=== PATIENT | female | born 1945 | race Caucasian/White ===

== ENCOUNTER 2019-01-04 00:42 | Day surgery (SDC) | payer MEDICARE | END 2019-01-04 23:08 | disposition home or self-care (01) | LOC: WOUND 00:42 | DX: L97.812 Non-pressure chronic ulcer of other part of right lower leg with fat layer exposed (principal); M06.9 Rheumatoid arthritis, unspecified | CPT/HCPCS: G0463 ==

== ENCOUNTER 2019-01-11 15:03 | Day surgery (SDC) | payer MEDICARE, OTHER | END 2019-01-11 23:52 | disposition home or self-care (01) | LOC: WOUND 15:03 | DX: L97.812 Non-pressure chronic ulcer of other part of right lower leg with fat layer exposed (principal); M19.90 Unspecified osteoarthritis, unspecified site ==

== ENCOUNTER 2019-01-18 12:30 | Day surgery (SDC) | payer MEDICARE | END 2019-01-18 13:30 | disposition home or self-care (01) | LOC: WOUND 12:30 | DX: S80.921A Unspecified superficial injury of right lower leg, initial encounter (principal); L97.822 Non-pressure chronic ulcer of other part of left lower leg with fat layer exposed; X08.8XXA Exposure to other specified smoke, fire and flames, initial encounter | CPT/HCPCS: G0463 ==

== ENCOUNTER 2019-01-24 13:05 | Day surgery (SDC) | payer MEDICARE, OTHER | END 2019-01-24 23:53 | disposition home or self-care (01) | LOC: WOUND 13:05 | DX: S81.801A Unspecified open wound, right lower leg, initial encounter (principal); L97.822 Non-pressure chronic ulcer of other part of left lower leg with fat layer exposed; M19.90 Unspecified osteoarthritis, unspecified site ==

== ENCOUNTER 2019-01-31 12:45 | Day surgery (SDC) | payer MEDICARE | END 2019-01-31 22:49 | disposition home or self-care (01) | LOC: WOUND 12:45 | DX: S80.921A Unspecified superficial injury of right lower leg, initial encounter (principal); L97.812 Non-pressure chronic ulcer of other part of right lower leg with fat layer exposed; L97.822 Non-pressure chronic ulcer of other part of left lower leg with fat layer exposed | CPT/HCPCS: 87070; 87075; 87077; 87147; 87186; 87205 ==

== ENCOUNTER 2019-02-07 00:18 | Day surgery (SDC) | payer MEDICARE, OTHER | END 2019-02-07 23:02 | disposition home or self-care (01) | LOC: WOUND 00:18 | DX: L97.822 Non-pressure chronic ulcer of other part of left lower leg with fat layer exposed (principal); R22.41 Localized swelling, mass and lump, right lower limb; S80.921D Unspecified superficial injury of right lower leg, subsequent encounter | CPT/HCPCS: G0463 ==

== ENCOUNTER 2019-02-14 00:30 | Day surgery (SDC) | payer MEDICARE, OTHER | END 2019-02-14 22:51 | disposition home or self-care (01) | LOC: WOUND 00:30 | DX: L97.812 Non-pressure chronic ulcer of other part of right lower leg with fat layer exposed (principal); L97.822 Non-pressure chronic ulcer of other part of left lower leg with fat layer exposed; S80.921D Unspecified superficial injury of right lower leg, subsequent encounter; R22.41 Localized swelling, mass and lump, right lower limb ==

== ENCOUNTER 2019-02-21 00:47 | Day surgery (SDC) | payer MEDICARE, OTHER | END 2019-02-21 23:22 | disposition home or self-care (01) | LOC: WOUND 00:47 | DX: L97.812 Non-pressure chronic ulcer of other part of right lower leg with fat layer exposed (principal); L97.822 Non-pressure chronic ulcer of other part of left lower leg with fat layer exposed; S80.921D Unspecified superficial injury of right lower leg, subsequent encounter ==

== ENCOUNTER 2021-08-29 12:49 | Inpatient (IN) | payer MEDICARE ==
[~2021-08-29] VITALS: Ht 175.3 cm; Wt 68.5 kg
[2021-08-29 13:17] LABS: BASOPHILS ABSOLUTE AUTO 0.14 K/mm3 (0.00-0.23); BASOPHILS PERCENT AUTO 1 % (0-2); EOSINOPHILS ABSOLUTE AUTO 0.01 K/mm3 (0.00-0.68); EOSINOPHILS PERCENT AUTO 0 % (0-6); Hemoglobin 20.3 g/dL (11.5-16.0); IMMATURE GRAN ABSOLUTE AUTO 0.24 K/mm3 (0.00-0.10); IMMATURE GRAN PERCENT AUTO 1 % (0-1); LYMPHOCYTES PERCENT AUTO 10 % (21-46); MONOCYTES ABSOLUTE AUTO 1.29 K/mm3 (0.16-1.47); MONOCYTES PERCENT AUTO 7 % (4-13); Mean Corpuscular HGB 31.3 pg (26.0-34.0); Mean Corpuscular HGB Conc 33.3 g/dL (31.5-36.5); Mean Corpuscular Volume 94 fL (80-100); Mean Platelet Volume 11.4 fL (9.1-12.4); NEUTROPHILS ABSOLUTE AUTO 14.27 K/mm3 (1.96-9.15); NEUTROPHILS PERCENT AUTO 81 % (41-73); Platelet Count 310 K/mm3 (150-400); RDW Coefficient Variation 13.7 % (11.7-14.2); RDW Standard Deviation 47.3 fL (35.1-46.3); Red Blood Cell Count 6.49 M/mm3 (3.80-5.20); White Blood Cell Count 17.65 K/mm3 (4.00-11.30)
[2021-08-29 13:20] LABS: Hematocrit 60.9 % (33.0-51.0)
[2021-08-29 13:43] LABS: Albumin, Blood 2.6 g/dL (3.4-5.0); Albumin/Globulin Ratio 0.4 (0.8-1.8); Bun/Creatinine Ratio 47.2 (12.0-20.0); Calcium, Blood 10.5 mg/dL (8.5-10.1); Creatine Kinase MB 17.6 ng/mL (0.0-3.6); Creatine Kinase MB Index 3.1 (0.0-4.0); Creatinine, Blood 3.07 mg/dL (0.40-1.00); Potassium, Blood 5.3 mmol/L (3.5-5.5); Total Protein, Blood 8.6 g/dL (6.4-8.2); Troponin I 0.086 ng/mL (0.000-0.040)
[2021-08-29 14:13] LABS: Source, Urine Catheter
[2021-08-29 14:16] LABS: Appearance, Urine Cloudy (Clear); Blood, Urine 1+ (Neg); Color, Urine Amber (P-Yellow); Glucose Qualitative, Urine Neg (Neg); Ketones, Urine Neg (Neg); Leukocyte Esterase, Urine 3+ (Neg); Nitrite, Urine Neg (Neg); Protein, Urine 2+ (Neg); Urobilinogen, Urine 2+ (Normal)
[2021-08-29 14:25] LABS: Bilirubin, Urine 1+ (Neg)
[2021-08-29 14:29] LABS: Bacteria Many /hpf; Red Blood Cells, Urine 0-2 /hpf (0-2); Squamous Epithelial Cells Few /hpf (Few)
[2021-08-29 14:30] LABS: Amorphous Mod (0-Heavy); U Amphetamine Screen Not Detected; U Barbituate Screen Not Detected; U Benzodiazapine Screen Not Detected; U Buprenorphine Screen Not Detected; U Cannabinoids Screen Not Detected; U Cocaine Screen Not Detected; U Methadone Screen Not Detected; U Methamphetamine Screen Not Detected; U Opiates Screen Not Detected; U Oxycodone Screen Not Detected; U Phencyclidine Screen Not Detected; U Propoxyphene Screen Not Detected
[2021-08-29 15:38] LABS: Influenza A, PCR NEGATIVE (NEGATIVE); Influenza B, PCR NEGATIVE (NEGATIVE); Resp Syncytial Virus, PCR NEGATIVE (NEGATIVE)
--- NOTE | 2021-08-29 18:56 | NUR ---
PT TX PT TRANSFERRED TO UNIT. VS TAKEN. PICTURES OF WOUND TAKEN AND WILL BE IN CHART. PHYSICIAN NOTIFIED OF INCREASE IN LACTIC ACID. PT MOANING IN PAIN AND NOT DIRECTABLE. BED ALARM IN PLACE. WILL CONT TO MONITOR UNTIL REPORT GIVEN TO LENCHO POLANCO.
--- NOTE | 2021-08-29 18:59 | NUR ---
PALLIATIVE CARE CONSULTED CALLED IN CONSULT TO COLLIN NICE
[2021-08-29 19:33] LABS: Bun/Creatinine Ratio 48.6 (12.0-20.0); Calcium, Blood 9.2 mg/dL (8.5-10.1); Creatinine, Blood 2.92 mg/dL (0.40-1.00); Potassium, Blood 4.5 mmol/L (3.5-5.5)
--- NOTE | 2021-08-29 19:41 | NUR ---
FAMILY CALL SPOKE TO THE PT'S SON (AMA) AND [id number] (JILL) AT LENGTH TO ANSWER QUESTIONS ABOUT PT CONDITION. REVEIEWED CONSENT AND COMPLETED FORMS OVER THE PHONE WITH 2ND RN. PLANS ARE FOR THEM TO TRAVEL FROM [place] WITH A DEPARTURE TIME ON 08/29/21 AM. PERMISSION GRANTED FOR UP TO (3) VISITORS AROUND THE CLOCK DUE TO PT'S CONFUSION AND INABILITY TO MAKE DECISIONS OR COMMUNICATE AT THIS TIME.
--- NOTE | 2021-08-29 19:42 | NUR ---
TANK STAVE ASSEMBLER CALL PROVIDED INFORMATION AND ANSWERED QUESTIONS FOR PT'S TANK STAVE ASSEMBLER (DUSTIN @ [phone]) AFTER RECEIVING CONSENT FROM NEXT OF KIN (SON AMA @ [phone]). PROVIDED WITH VISITING HOUR POLICY AND PLAN TO INCLUDE ALLOWANCE OF UP TO (3) VISITORS AROUND THE CLOCK PER PT'S ALTERED MENTATION AND POSSIBLE DECISION MAKING FOR TREATMENT AND PLAN OF CARE.
[2021-08-29 19:47] LABS: SARS-Cov-2 (COVID-19) PCR, MMC POSITIVE (NEGATIVE)
[2021-08-30 03:43] LABS: Hematocrit 50.7 % (33.0-51.0); Mean Corpuscular HGB Conc 33.5 g/dL (31.5-36.5); Mean Corpuscular Volume 93 fL (80-100); Mean Platelet Volume 11.7 fL (9.1-12.4); NRBC ABSOLUTE 0.02 K/mm3 (0.00-0.02); NRBC Auto 0.1 /100 WBC (0.0-0.2); Platelet Count 221 K/mm3 (150-400); RDW Coefficient Variation 13.5 % (11.7-14.2); RDW Standard Deviation 46.2 fL (35.1-46.3); Red Blood Cell Count 5.48 M/mm3 (3.80-5.20); White Blood Cell Count 17.91 K/mm3 (4.00-11.30)
[2021-08-30 04:21] LABS: Bun/Creatinine Ratio 48.4 (12.0-20.0); Creatinine, Blood 3.06 mg/dL (0.40-1.00); Potassium, Blood 3.4 mmol/L (3.5-5.5); Thyroid Stimulating Hormone 2.96 uIU/mL (0.360-4.800)
[2021-08-30 04:31] LABS: Troponin I 2.03 ng/mL (0.000-0.040)
[2021-08-30 06:25] LABS: Anti-Xa UFH, PHA Monitoring <0.10 IU/mL; International Normalized Ratio 1.04; Prothrombin Time Results 10.9 Sec (9.7-11.5)
--- NOTE | 2021-08-30 07:27 | NUR ---
EMPLOYMENT TRAINING SPECIALIST SUMMARY PT IS AXO X 0. PT HAS NO VERBAL RESPONSE AND DOES NOT FOLLOW ANY COMMANDS. THIS RN DOES NOT BELIEVE THE PT CAN SEE, PT DOES NOT TRACK AND DOES NOT APPEAR TO HAVE PURPOSEFUL EYE CONTACT. PUPILS ARE EQUAL BUT VERY SLUGGISH TO LIGHT. BUNDLING MACHINE OPERATOR ARE EQUAL AND STRONG. FACE IS SYMMETRICAL WITH NO OBVIOUS DEFICIT. BP WNL AND STABLE THIS SHIFT. O2 SATS >92% ON RM AIR. PT AFEBRILE THIS SHIFT ALTHOUGH TEMP IS SLOWLY RISING UP TO 99.1 THIS AM. PT DID NOT APPEAR IN ANY DISTRESS ALTHOUGH SHE MOANS IN PAIN WHEN REPOSITIONED. PT TOSSES HER HEAD BACK AND FORTH WHILE IN BED AT TIMES. PT'S TROPONINS CONTINUED TO TREND UP SO PROVIDER CONTACTED AND ORDER FOR HEPARIN OBTAINED. THIS RN EXPRESSED CONCERN TO PACKING ROOM WORKER AAKASH BEYER AT THE START OF THE SHIFT ABOUT THE PT'S SODIUM LEVELS AND THAT SHE WAS RECIEVING NS INSTEAD OF 1/2 NS AND THE PACKING ROOM WORKER SAID THAT THE PT WAS VOLUME DEPLETED AND THAT THE NS WAS APPROPRIATE AND THE NA LEVEL WOULD EVENTUALLY DROP HOWEVER, THIS AM THE PT'S NA LEVEL WAS UP TO 160 SO PROVIDER WAS CONTACTED AND NS WAS DC'D AND D5W WAS STARTED. TELE SHOWING ST IN THE 100'S FOR MOST OF THE SHIFT. REPORT GIVEN TO DAYSHIFT RN WHO HAS ASSUMED CARE.
--- NOTE | 2021-08-30 08:56 | NUR ---
PATIENT RESPONDING TO VERBAL AND TOUCH, MOANING AND GROANING. NO VERBAL RESPONSE. PATIENT EYES REMAINED CLOSED THIS AM. NOT FOLLOWING COMMANDS. PUPILS EQUAL AND SLUGGISH TO RESPOND. ARMS FLEXING AND EXTENDING IN RIGID MOTIONS. NOT ABLE TO REAL ESTATE MANAGER MY FINGERS OR FOLLOW BASIC COMMANDS. ON ROOM AIR SATING HIGH 90'S. LUNGS SOUNDING CLEAR AND DIM IN BASES. NO COUGH AT THIS TIME. ORAL CARE Q4. TELE SHOWING SINUS RHYTHM/SINUS TACH WITH HR 90-110'S. BP STABLE. TEMP ELEVATED AT 99.3 THIS AM. BLANKETS REMOVED. PATIENT WARM TO TOUCH AND SKIN NOTED TO BE SLIGHTLY RED THROUGHOUT. UPON PALPATION PATIENT MOANS AND GROANS THROUGHOUT WHOLE BODY. WINTER CATH IN PLACE DRAINING CLEAR/NINOSKA COLORED URINE. Q2 TURNING AND NEEDED. PRESSURE ULCER TO COCCYX, CLEANED AND NEW MEPILEX APPLIED. HEELS BEING FLOATED OFF BED WITH PINK FOAM. NEPHROLOGY AND CARDIOLOGY CONSULTED THIS AM. PLAN TO HAVE ECHO. HEPARIN GTT INFUSING WELL D5 WITH 1 AMP BICARD AND POTASSIUM. WILL CONTINUE TO MONITOR.
--- NOTE | 2021-08-30 11:02 | NUR ---
UPDATE: SON AMA CALLED AND UPDATE PROVIDED. SON ON WAY FROM [facility], PLANS TO ARRIVE TODAY. PALLIATIVE CARE CALLED AND UPDATED ON CASE. ECHO BEING DONE AT THIS TIME. WILL CONTINUE TO MONITOR.
--- NOTE | 2021-08-30 11:19 | NUR ---
Echocardiogram completed.
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
--- NOTE | 2021-08-30 16:24 | NUR ---
CALL PLACED TO DR. LAND TO UPDATE ON SODIUM LAB RESULTS. NO NEW ORDERS AT THIS TIME.
--- NOTE | 2021-08-30 18:53 | NUR ---
SHIFT SUMMARY: NEURO REMAINS UNCHANGED. PATIENT GRIPPING SIDE RAILS DURING TURNS AND MOANING/GROANING WITH PALPATION AND TURNS. PUPILS REMAIN EQUAL AND SLUGISH. VITAL SIGNS STABLE. REMAINS ON ROOM AIR AND NO CHANGES IN TELE. HR REMAIN 90'S. RINGS REMOVED AND IN CUP IN ROOM. UPDATE PROVIDED TO SON TODAY, WHO IS ON HIS WAY FROM [facility]. BLOOD SUGARS Q6 WITH INSULIN COVERAGE. THIAMINE INFUSED. Q2 TURNS. WILL CONTINUE MONITOR AND REPORT OFF TO ONCOMING RN.
--- NOTE | 2021-08-30 20:58 | NUR ---
CARE ASSUMPTION PT IS NOT ALERT BUT RESPONDS TO TOUCH W MOANS AND GROANS. O2 SATS >90% ON RM AIR W CLEAR/DIM LS. BP WNL AND STABLE. HR IS SR IN THE 90'S. HEPARIN AND D5W RUNNING. PT LAYING IN BED APPEARING COMFORTABLE WHEN SHE IS NOT BEING TOUCHED.
[2021-08-31 03:39] LABS: BASOPHILS ABSOLUTE AUTO 0.08 K/mm3 (0.00-0.23); BASOPHILS PERCENT AUTO 1 % (0-2); EOSINOPHILS ABSOLUTE AUTO 0.07 K/mm3 (0.00-0.68); EOSINOPHILS PERCENT AUTO 0 % (0-6); Hematocrit 44.6 % (33.0-51.0); Hemoglobin 14.9 g/dL (11.5-16.0); IMMATURE GRAN ABSOLUTE AUTO 0.59 K/mm3 (0.00-0.10); IMMATURE GRAN PERCENT AUTO 3 % (0-1); LYMPHOCYTES ABSOLUTE AUTO 1.81 K/mm3 (0.84-5.20); LYMPHOCYTES PERCENT AUTO 11 % (21-46); MONOCYTES ABSOLUTE AUTO 0.98 K/mm3 (0.16-1.47); MONOCYTES PERCENT AUTO 6 % (4-13); Mean Corpuscular HGB 31.2 pg (26.0-34.0); Mean Corpuscular HGB Conc 33.4 g/dL (31.5-36.5); Mean Corpuscular Volume 93 fL (80-100); Mean Platelet Volume 11.4 fL (9.1-12.4); NEUTROPHILS ABSOLUTE AUTO 13.78 K/mm3 (1.96-9.15); NEUTROPHILS PERCENT AUTO 80 % (41-73); NRBC ABSOLUTE 0.02 K/mm3 (0.00-0.02); NRBC Auto 0.1 /100 WBC (0.0-0.2); Platelet Count 174 K/mm3 (150-400); RDW Coefficient Variation 13.9 % (11.7-14.2); RDW Standard Deviation 48.1 fL (35.1-46.3); Red Blood Cell Count 4.78 M/mm3 (3.80-5.20); White Blood Cell Count 17.31 K/mm3 (4.00-11.30)
[2021-08-31 03:53] LABS: Albumin, Blood 1.6 g/dL (3.4-5.0); Anion Gap 13 mmol/L (6-16); Blood Urea Nitrogen 119 mg/dL (8-24); Bun/Creatinine Ratio 54.3 (12.0-20.0); CO2, Blood 18 mmol/L (21-32); Calcium, Blood 8.8 mg/dL (8.5-10.1); Chloride, Blood 123 mmol/L (98-108); Creatinine, Blood 2.19 mg/dL (0.40-1.00); Glomerular Filtration Rate 22 (60-); Glucose, Blood 179 mg/dL (70-99); Magnesium, Blood 3.2 mg/dL (1.6-2.4); Phosphorus, Blood 2.2 mg/dL (2.5-4.9); Sodium, Blood 154 mmol/L (136-145)
--- NOTE | 2021-08-31 05:45 | NUR ---
STACKER TENDER SUMMARY PT'S NEURO HAS NOT CHANGED THIS SHIFT FROM PREVIOUS NIGHT. PT CONTINUES TO NOT TRACK ANYTHING WITH HER EYES AND DOES NOT FOLLOW ANY COMMANDS. PT SHOWS NO S/S OF DISTRESS UNLESS BEING MOVED IN BED. O2 SATS >92% ON RM AIR. BP WNL AND STABLE THIS SHIFT. TELE SHOWING SR 80-90'S THIS SHIFT. PT TURNED Q2H AND ORAL CARE PROVIDED THROUGHOUT THE SHIFT. AM LABS SHOW SEVERAL ABNORMAL LAB RESULTS SO THIS RN CONTACTED DR. LAND WHO SAID HE IS PUTTING IN ORDERS AT THIS TIME SO I WILL AWAIT NEW ORDERS. WILL REPORT TO ONCOMING RN.
--- NOTE | 2021-08-31 08:55 | NUR ---
Pt is lying in bed, eyes half-open, mouth wide open. Occasionally coughing. She responds, "huh?" when I call her name. Opened her eyes to command, resisted oral care, closing and opening her mouth, and grabbing the suction tubing. Also turns her head side to side and grimaces when face is gently wiped with damp washcloth to remove secrections crusted beneath lower eyelashes. Moans when arms/legs are touched or moved. Otherwise did not respond, to command or spontaneously. Oral care done to remove casts on the soft palate and tongue. Coughing up secretions, yellowish white to the back of the mouth, which were suctioned during oral care. She continues to have occasional coughing before and after the oral care was initianted. Dr. Eaton was here rounding while I was in the room with the pt.,
--- NOTE | 2021-08-31 16:55 | NUR ---
MRI will be done around 1730 this evening. At this time pt is awake, alert, and smiling at staff. Tracking with her eyes, opening eyes spontaneously, able to answer some questions, and able to very gently sqeeze my hands with hers. Left side slightly stronger than the right. SPontaneous movement of both upper extremities noted, left side more than the right. Able to wiggle fingers of both hands, very slowly.
--- NOTE | 2021-08-31 17:05 | NUR ---
Able to contact pt's brother to fill out the MRI screening form. MRI will be done around 5:30 pm today.
[2021-08-31 22:00] LABS: Source, Urine Catheter
[2021-08-31 23:22] LABS: Appearance, Urine Clear (Clear); Bilirubin, Urine Neg (Neg); Blood, Urine 4+ (Neg); Color, Urine Yellow (P-Yellow); Glucose Qualitative, Urine 1+ (Neg); Ketones, Urine Neg (Neg); Leukocyte Esterase, Urine 2+ (Neg); Nitrite, Urine Neg (Neg); Protein, Urine 2+ (Neg); Urobilinogen, Urine NORM (Normal)
[2021-08-31 23:53] LABS: Bacteria Mod /hpf; Squamous Epithelial Cells Few /hpf (Few)
[2021-09-01 04:40] LABS: BASOPHILS ABSOLUTE AUTO 0.05 K/mm3 (0.00-0.23); BASOPHILS PERCENT AUTO 0 % (0-2); EOSINOPHILS ABSOLUTE AUTO 0.08 K/mm3 (0.00-0.68); EOSINOPHILS PERCENT AUTO 1 % (0-6); Hematocrit 40.8 % (33.0-51.0); Hemoglobin 13.5 g/dL (11.5-16.0); IMMATURE GRAN PERCENT AUTO 4 % (0-1); LYMPHOCYTES ABSOLUTE AUTO 1.55 K/mm3 (0.84-5.20); LYMPHOCYTES PERCENT AUTO 13 % (21-46); MONOCYTES ABSOLUTE AUTO 0.56 K/mm3 (0.16-1.47); MONOCYTES PERCENT AUTO 5 % (4-13); Mean Corpuscular HGB Conc 33.1 g/dL (31.5-36.5); Mean Corpuscular Volume 94 fL (80-100); NEUTROPHILS ABSOLUTE AUTO 9.04 K/mm3 (1.96-9.15); NEUTROPHILS PERCENT AUTO 77 % (41-73); NRBC ABSOLUTE 0.02 K/mm3 (0.00-0.02); NRBC Auto 0.2 /100 WBC (0.0-0.2); Platelet Count 157 K/mm3 (150-400); RDW Coefficient Variation 13.7 % (11.7-14.2); RDW Standard Deviation 47.7 fL (35.1-46.3); Red Blood Cell Count 4.35 M/mm3 (3.80-5.20); White Blood Cell Count 11.78 K/mm3 (4.00-11.30)
--- NOTE | 2021-09-01 04:56 | NUR ---
SHIFT SUMMARY PT ALERT WHEN STIMULATED W/ VERBAL STIMULI. RESPONDS WITH SIMPLE, ONE WORD ANSWERS, "YES." "OK" "HI". PT SLOW TO RESPOND. ATTEMPTS TO FOLLOW COMMANDS, OPENED MOUTH WHEN ASKED. oPENED EYES WHEN ASKED. SP02>92% ON RA. TELEMETRY READS NSR, HR 70'S, VSS. PT MOANS AND PULLS ARMS AWAY WHEN BEING MOVED OR REPOSITIONED, SUPER SENSTIVE TO TOUCH. NO MOANING WHEN LEFT ALONE. WINTER CATHETER INSERTED THIS SHIFT, DRAINING CLEAR YELLOW URINE. NO BM THIS SHIFT. ORAL CARE PERFORMED. D5 INFUSING PER EMAR. HEPARIN INFUSING PER EMAR. PT'S EXECUTIVE WELLNESS PROGRAMS DIRECTOR CALLED FOR UPDATE. STATES HE WILL CALL BACK IN MORNING TO PRAY WITH PATIENT. CALL LIGHT IN REACH.
[2021-09-01 05:10] LABS: Albumin, Blood 1.4 g/dL (3.4-5.0); Anion Gap 11 mmol/L (6-16); Blood Urea Nitrogen 78 mg/dL (8-24); Bun/Creatinine Ratio 52.7 (12.0-20.0); CO2, Blood 18 mmol/L (21-32); Calcium, Blood 8.3 mg/dL (8.5-10.1); Chloride, Blood 118 mmol/L (98-108); Creatinine, Blood 1.48 mg/dL (0.40-1.00); Glomerular Filtration Rate 34 (60-); Glucose, Blood 131 mg/dL (70-99); Magnesium, Blood 2.7 mg/dL (1.6-2.4); Phosphorus, Blood 2.5 mg/dL (2.5-4.9); Potassium, Blood 3.1 mmol/L (3.5-5.5); Sodium, Blood 147 mmol/L (136-145)
--- NOTE | 2021-09-01 10:50 | NUR ---
Morning note: Pt is alert, answering some questions with short, simple answers, and slow to respond, but answers are appropriate, if sometimes slurred and difficult for her to form. She smiles often. At rest she says that she is not in pain; however, even with the smallest passive movements and repostioning, or with assessment of her BLE edema she cries out/moans with pain. Minimal movement of her arms, hands and feet. Able to turn her head side to side; when asked to shrug her shoulders she did, and then wiggled them up and down and smiled. I asked her if she is like her son, and then I asked or is he like you? And she smiled and said, "vice versa, and versa vice!" IV left forearm was beginning to show redness and swelling; it was dc'd. Powerglide placed on the right upper arm to infuse D5W and K+ rider concurrently for pt's comfort. The heparin gtt continues to infuse on the left forearm.
--- NOTE | 2021-09-01 11:44 | NUR ---
Speaking full sentences now. STates her son "said he would be back today or tomorrow" and asking, "What happened to my wedding ring?" Still slow in speaking, but making more improvements.
--- NOTE | 2021-09-01 14:41 | NUR ---
Spoke with lAisa, Speech therapist. PT is visiting with her son Yury and daughter in law in the room.
--- NOTE | 2021-09-01 17:44 | NUR ---
Pt appeared tired after family left this afternoon. She was repositioned, and then she appeared to take a nap for about 1.5 hours. At dinner time she was awake, and said that she wanted to eat. Conversation much slower after dinner; she appears pretty tired. Oral care given and repositioned. Son Yury and his were here this afternoon, updated on pt improvements, and they were in the room while the swallow eval was being done, so were apraised of her progress. Also informed them that the safety intern is considering angiogram for Monday. Also spoke with palliative Care RN Tara about pt condition and ongoing plan of care.
[2021-09-02 06:45] LABS: Magnesium, Blood 2.5 mg/dL (1.6-2.4)
[2021-09-02 06:47] LABS: Albumin, Blood 1.2 g/dL (3.4-5.0); Anion Gap 7 mmol/L (6-16); Blood Urea Nitrogen 45 mg/dL (8-24); Bun/Creatinine Ratio 42.9 (12.0-20.0); CO2, Blood 18 mmol/L (21-32); Calcium, Blood 7.7 mg/dL (8.5-10.1); Chloride, Blood 114 mmol/L (98-108); Creatinine, Blood 1.05 mg/dL (0.40-1.00); Glomerular Filtration Rate 51 (60-); Glucose, Blood 118 mg/dL (70-99); Phosphorus, Blood 2.1 mg/dL (2.5-4.9); Sodium, Blood 139 mmol/L (136-145)
[2021-09-02 06:48] LABS: Potassium, Blood 5.5 mmol/L (3.5-5.5)
--- NOTE | 2021-09-02 07:39 | NUR ---
SHIFT SUMMARY PT ALERT. SLOW TO RESPOND AND USES SHORT SENTENCES OR PHRASES. HR SR AND O2 SATS MAINTAINING OVER 95% ON RA. Q2 TURNS AND Q4 ORAL CARE. D5W INFUSING AT 75 ML/HR. HEPARIN GTT INFUSING. PG DRAWS. WINTER IN PLACE DRAINING URINE TO GRAVITY. IN BED RESTING WITH CALL ALARM AT SIDE
[2021-09-02 08:07] LABS: BASOPHILS ABSOLUTE AUTO 0.05 K/mm3 (0.00-0.23); BASOPHILS PERCENT AUTO 0 % (0-2); EOSINOPHILS ABSOLUTE AUTO 0.07 K/mm3 (0.00-0.68); EOSINOPHILS PERCENT AUTO 1 % (0-6); Hematocrit 38.2 % (33.0-51.0); Hemoglobin 12.9 g/dL (11.5-16.0); IMMATURE GRAN ABSOLUTE AUTO 0.68 K/mm3 (0.00-0.10); IMMATURE GRAN PERCENT AUTO 6 % (0-1); LYMPHOCYTES PERCENT AUTO 16 % (21-46); MONOCYTES ABSOLUTE AUTO 0.66 K/mm3 (0.16-1.47); MONOCYTES PERCENT AUTO 6 % (4-13); Mean Corpuscular HGB 31.4 pg (26.0-34.0); Mean Corpuscular HGB Conc 33.8 g/dL (31.5-36.5); Mean Corpuscular Volume 93 fL (80-100); NEUTROPHILS ABSOLUTE AUTO 8.48 K/mm3 (1.96-9.15); NEUTROPHILS PERCENT AUTO 72 % (41-73); RDW Coefficient Variation 13.7 % (11.7-14.2); RDW Standard Deviation 46.4 fL (35.1-46.3); Red Blood Cell Count 4.11 M/mm3 (3.80-5.20); White Blood Cell Count 11.84 K/mm3 (4.00-11.30)
[2021-09-02 08:21] LABS: Mean Platelet Volume 12.7 fL (9.1-12.4)
[2021-09-02 10:34] LABS: Platelet Count 126 K/mm3 (150-400)
--- NOTE | 2021-09-02 18:49 | NUR ---
SHIFT SUMMARY PT A/O X1-2, UNABLE TO STATE WHERE SHE IS AFTER MULTIPLE REMINDERS. PT ANSWERS QUESTIONS AND IS VERY PLEASANT. VSS T/O SHIFT WITH 02 SATS >99% ON RA. PT HAS WINTER IN PLACE DRAINGING TO GRAVITY, YELLOW URINE. PT SAYS "OW" MULTIPLE TIMES WHEN REPOSITIONING, SOMETIMES SAY "OW" IN ANTICIPATION OF THE REPOSTIONING. NO C/O CHEST PAIN/PRESSURE T/O SHIFT. NO C/O SOB T/O SHIFT.
[2021-09-03 04:10] LABS: BASOPHILS ABSOLUTE AUTO 0.07 K/mm3 (0.00-0.23); BASOPHILS PERCENT AUTO 1 % (0-2); EOSINOPHILS ABSOLUTE AUTO 0.05 K/mm3 (0.00-0.68); EOSINOPHILS PERCENT AUTO 1 % (0-6); Hematocrit 36.6 % (33.0-51.0); Hemoglobin 12.4 g/dL (11.5-16.0); IMMATURE GRAN ABSOLUTE AUTO 0.45 K/mm3 (0.00-0.10); IMMATURE GRAN PERCENT AUTO 4 % (0-1); LYMPHOCYTES ABSOLUTE AUTO 1.71 K/mm3 (0.84-5.20); LYMPHOCYTES PERCENT AUTO 15 % (21-46); MONOCYTES ABSOLUTE AUTO 0.64 K/mm3 (0.16-1.47); MONOCYTES PERCENT AUTO 6 % (4-13); Mean Corpuscular HGB 31.2 pg (26.0-34.0); Mean Corpuscular HGB Conc 33.9 g/dL (31.5-36.5); Mean Corpuscular Volume 92 fL (80-100); Mean Platelet Volume 11.8 fL (9.1-12.4); NEUTROPHILS ABSOLUTE AUTO 8.19 K/mm3 (1.96-9.15); NEUTROPHILS PERCENT AUTO 74 % (41-73); Platelet Count 133 K/mm3 (150-400); RDW Coefficient Variation 13.4 % (11.7-14.2); RDW Standard Deviation 45.9 fL (35.1-46.3); Red Blood Cell Count 3.97 M/mm3 (3.80-5.20); White Blood Cell Count 11.11 K/mm3 (4.00-11.30)
[2021-09-03 04:37] LABS: Albumin, Blood 1.3 g/dL (3.4-5.0); Anion Gap 4 mmol/L (6-16); Blood Urea Nitrogen 31 mg/dL (8-24); Bun/Creatinine Ratio 33.5 (12.0-20.0); CO2, Blood 21 mmol/L (21-32); Calcium, Blood 8.2 mg/dL (8.5-10.1); Chloride, Blood 120 mmol/L (98-108); Creatinine, Blood 0.92 mg/dL (0.40-1.00); Glomerular Filtration Rate 59 (60-); Glucose, Blood 123 mg/dL (70-99); Phosphorus, Blood 3.1 mg/dL (2.5-4.9); Potassium, Blood 4.2 mmol/L (3.5-5.5); Sodium, Blood 145 mmol/L (136-145)
--- NOTE | 2021-09-03 07:47 | NUR ---
SHIFT SUMMARY PT ALERT BUT UNABLE TO REMEMBER DATE OR LOCATION. PAIN WITH Q2 REPOSITIONING. CLINIMIX INFUSING AND HEPARIN GTT INFUSING. WINTER IN PLACE DRAINING DARK YELLOW URINE TO GRAVITY. HR SR 80'S AND BP STABLE. O2 SATS MAINTAINING OVER 93% ON RA. ORAL CARE Q4. IN BED AWAKE WITH CALL ALARM AT SIDE
--- NOTE | 2021-09-03 18:37 | NUR ---
SHIFT SUMMARY PT A/O 1-2, CONFUSED. PT PLEASANT WHEN STAFF IN ROOM. WHEN ASKED QUESTIONS, PT TRIES TO ANSWER QUESTIONS BY READING WHAT IS ON THE WHITE BOARD OR WHAT IS ON TV. VSS T/O SHIFT WITH O2 SATS >93% ON RA. PT HAS WINTER DRAINING TO GRVITY, YELLOW URINE. NO C/O CHEST PAIN/PRESSURE T/O. PT REPORTED PAIN OF LEGS DURING REPOSITIONS. PT HAD ELEVATED TEMP, DR NOTIFIED. COOL WASH CLOTH APPLIED TO FOREHEAD OF PT, TEMP BEGAN TO DECREASE. CONTINUING TO AWAIT CODE STATUS CHANGES AND CONSENT FOR ANGIO PROCEDURE FROM FAMILY, PALLIATIVE ON THE CASE.
[2021-09-04 04:43] LABS: BASOPHILS ABSOLUTE AUTO 0.06 K/mm3 (0.00-0.23); BASOPHILS PERCENT AUTO 1 % (0-2); EOSINOPHILS ABSOLUTE AUTO 0.07 K/mm3 (0.00-0.68); EOSINOPHILS PERCENT AUTO 1 % (0-6); Hematocrit 38.4 % (33.0-51.0); Hemoglobin 12.9 g/dL (11.5-16.0); IMMATURE GRAN ABSOLUTE AUTO 0.33 K/mm3 (0.00-0.10); IMMATURE GRAN PERCENT AUTO 3 % (0-1); LYMPHOCYTES ABSOLUTE AUTO 1.46 K/mm3 (0.84-5.20); LYMPHOCYTES PERCENT AUTO 11 % (21-46); MONOCYTES ABSOLUTE AUTO 0.81 K/mm3 (0.16-1.47); MONOCYTES PERCENT AUTO 6 % (4-13); Mean Corpuscular HGB 31.5 pg (26.0-34.0); Mean Corpuscular HGB Conc 33.6 g/dL (31.5-36.5); Mean Corpuscular Volume 94 fL (80-100); Mean Platelet Volume 11.3 fL (9.1-12.4); NEUTROPHILS ABSOLUTE AUTO 10.14 K/mm3 (1.96-9.15); NEUTROPHILS PERCENT AUTO 79 % (41-73); Platelet Count 157 K/mm3 (150-400); RDW Coefficient Variation 13.6 % (11.7-14.2); RDW Standard Deviation 46.4 fL (35.1-46.3); Red Blood Cell Count 4.09 M/mm3 (3.80-5.20); White Blood Cell Count 12.87 K/mm3 (4.00-11.30)
[2021-09-04 04:52] LABS: Albumin, Blood 1.4 g/dL (3.4-5.0); Anion Gap 4 mmol/L (6-16); Blood Urea Nitrogen 28 mg/dL (8-24); Bun/Creatinine Ratio 33.7 (12.0-20.0); CO2, Blood 24 mmol/L (21-32); Calcium, Blood 8.7 mg/dL (8.5-10.1); Chloride, Blood 119 mmol/L (98-108); Creatinine, Blood 0.83 mg/dL (0.40-1.00); Glomerular Filtration Rate >60 (60-); Glucose, Blood 126 mg/dL (70-99); Magnesium, Blood 2.2 mg/dL (1.6-2.4); Phosphorus, Blood 3.1 mg/dL (2.5-4.9); Potassium, Blood 4.7 mmol/L (3.5-5.5); Sodium, Blood 147 mmol/L (136-145)
--- NOTE | 2021-09-04 06:01 | NUR ---
SHIFT SUMMARY ASSUMED CARE OF PT AT 1900. PT IS ALERT BUT NOT ORIENTED. DOES NOT ANSWER QUESTIONS APPROPIATLY. HEART SOUNDS REGULAR, LUNG SOUNDS DIMINISHED. PT HAS A WINTER, DRAINING CLEAR YELLOW URINE. PT SACRAL WOUND WAS CLEANED AND DRESSING CHANGED. PT LEGS ARE VERY PAINFUL TO TOUCH BUT FINE WHEN RESTING. CALL LIGHT IN REACH, BED IN LOWEST POSITION.
--- NOTE | 2021-09-04 10:38 | NUR ---
PATIENT ALERT TO SELF. VERY CONFUSED. UNABLE TO ANSWER ANY ORIENTING QUESTIONS AT THIS TIME BESIDES FIRST NAME. ABLE TO MOVE UPPER EXTREMITIES, LOWER EXTREMITIES VERY WEAK WITH LITTLE MOVEMENT. WEAK BILATERAL GENERATION TECHNOLOGIST. PERRLA, EYES TRACKING. ABLE TO FOLLOW COMMANDS. DENIES NUMBNESS/TINGLING. COMPLAINS OF PAIN "SOMETIMES" IN LEGS. RESPIRATORY WNL, LUNGS SOUNDING CLEAR AND DIM IN BASES. ON ROOM AIR. TELE SHOWING SINUS WITH INVERTED T WAVES AND HR 80-90'S. BLOOD PRESSURE STABLE. DENIES ABDOMINAL PAIN. WINTER CATH IN PLACE DRAINING CLEAR/YELLOW URINE. NOT EATING MUCH. PUREE DIET. CLINIMIX INFUSING. SACRUM AND BILATERAL HEEL WOUNDS WITH MEPILEX IN PLACE. PLAN TO REDRESS AND CLEAN TODAY. PHYSICAL THERAPY IN THIS AM. Q6 BLOOD SUGARS. Q4 ORAL CARE AND Q2 TURNING. BED ALARM AND CAMERA ON. CALL LIGHT IN REACH WILL CONTINUE TO MONITOR.
--- NOTE | 2021-09-04 12:52 | NUR ---
TRANSFER: PATIENT TRANSFERRED TO 313 AT THIS TIME. NO ACUTE CHANGES. PATIENT ON TELE. TELE MONITOR AWARE OF TRANSFER. ORAL CARE AND Q2 TURNING COMPLETED. REMAINS ALERT TO SELF. TRANSFERRED VIA BED WITH ALL PERSONAL BELONGINGS. REPORTED OFF TO RN.
--- NOTE | 2021-09-04 12:54 | NUR ---
PATIENT TRANSFERED FROM PCU 8 TO ROOM 313. HEPARIN GTT AND CLINIMIX INFUSING. BED ALARM SET FOR SAFETY. PATIENT CONFUSED. CALL LIGHT WITHIN REACH AND PATIENT INSTRUCTED ON USE OF CALL LIGHT FOR ASSISTANCE. DENIES ANY PAIN OR ANY NEEDS AT THIS TIME. DROPLET ISOLATION PRECAUTIONS IN PLACE FOR COVID 19.
--- NOTE | 2021-09-04 17:39 | NUR ---
PT RECEIVED THIS AFT. HAS BEEN QUITE PLEASANT THIS YAN. DOES TAKE SOME NUTRITION WITH FEEDING HELP. DOES TAKE A LONG TIME TO RESPOND. ONLY ANSWERS QUESTIONS WITH VAGUE ANSWERS. OFTEN CONFUSED ANSWERS. IS PRESENTLY GETTING US OF LEGS. BED IN LOW POSITION, CALL LITE IN REACH, CALLS APPROP
[2021-09-05 04:53] LABS: BASOPHILS ABSOLUTE AUTO 0.04 K/mm3 (0.00-0.23); BASOPHILS PERCENT AUTO 0 % (0-2); EOSINOPHILS ABSOLUTE AUTO 0.06 K/mm3 (0.00-0.68); EOSINOPHILS PERCENT AUTO 1 % (0-6); Hematocrit 37.9 % (33.0-51.0); Hemoglobin 12.7 g/dL (11.5-16.0); IMMATURE GRAN ABSOLUTE AUTO 0.22 K/mm3 (0.00-0.10); IMMATURE GRAN PERCENT AUTO 2 % (0-1); LYMPHOCYTES ABSOLUTE AUTO 1.75 K/mm3 (0.84-5.20); LYMPHOCYTES PERCENT AUTO 13 % (21-46); MONOCYTES ABSOLUTE AUTO 0.96 K/mm3 (0.16-1.47); MONOCYTES PERCENT AUTO 7 % (4-13); Mean Corpuscular HGB Conc 33.5 g/dL (31.5-36.5); Mean Corpuscular Volume 92 fL (80-100); Mean Platelet Volume 11.1 fL (9.1-12.4); NEUTROPHILS ABSOLUTE AUTO 10.26 K/mm3 (1.96-9.15); NEUTROPHILS PERCENT AUTO 77 % (41-73); Platelet Count 128 K/mm3 (150-400); RDW Coefficient Variation 13.6 % (11.7-14.2); RDW Standard Deviation 45.7 fL (35.1-46.3); White Blood Cell Count 13.29 K/mm3 (4.00-11.30)
[2021-09-05 05:30] LABS: Albumin, Blood 1.5 g/dL (3.4-5.0); Anion Gap 8 mmol/L (6-16); Blood Urea Nitrogen 23 mg/dL (8-24); Bun/Creatinine Ratio 36.3 (12.0-20.0); CO2, Blood 22 mmol/L (21-32); Calcium, Blood 8.3 mg/dL (8.5-10.1); Chloride, Blood 116 mmol/L (98-108); Creatinine, Blood 0.63 mg/dL (0.40-1.00); Glomerular Filtration Rate >60 (60-); Glucose, Blood 112 mg/dL (70-99); Phosphorus, Blood 3.3 mg/dL (2.5-4.9); Potassium, Blood 3.4 mmol/L (3.5-5.5); Sodium, Blood 146 mmol/L (136-145)
--- NOTE | 2021-09-05 06:42 | NUR ---
INGRID REMAINED STABLE THROUGHOUT THE NUT THREADER.SHE HAD PERIODS OF CONFUSION DURING ASSESSMENTS AND VITALS. HER GLUCOSE LEVEL REMAINED STABLE. A NEW BAG OF CLINIMYX WAS HUNG. HER VITALS REMAINED STABLE. HER HEPARIN DRIPS IS STILL RUNNING AT SHIFT CHANGE
--- NOTE | 2021-09-05 18:24 | NUR ---
Alert and oriented x1 , nonsensical talk sometimes and confused. Continue on heparin drip , no adverse effects noted. continue on clinimix at 50 ml/hr for nutrition supplement. Vital signs are stable. Fentayl 25 mcg was given for pain management , it was effective. Blood within normal limit. sacral and bilateral heel dressing CDI. Call light in place. Continue to monitor to monitor.
[2021-09-06 05:20] LABS: BASOPHILS ABSOLUTE AUTO 0.04 K/mm3 (0.00-0.23); BASOPHILS PERCENT AUTO 0 % (0-2); EOSINOPHILS ABSOLUTE AUTO 0.06 K/mm3 (0.00-0.68); EOSINOPHILS PERCENT AUTO 1 % (0-6); Hematocrit 35.7 % (33.0-51.0); Hemoglobin 11.9 g/dL (11.5-16.0); IMMATURE GRAN ABSOLUTE AUTO 0.12 K/mm3 (0.00-0.10); IMMATURE GRAN PERCENT AUTO 1 % (0-1); LYMPHOCYTES PERCENT AUTO 16 % (21-46); MONOCYTES ABSOLUTE AUTO 0.97 K/mm3 (0.16-1.47); MONOCYTES PERCENT AUTO 9 % (4-13); Mean Corpuscular HGB 31.5 pg (26.0-34.0); Mean Corpuscular HGB Conc 33.3 g/dL (31.5-36.5); Mean Corpuscular Volume 94 fL (80-100); Mean Platelet Volume 11.2 fL (9.1-12.4); NEUTROPHILS ABSOLUTE AUTO 7.76 K/mm3 (1.96-9.15); NEUTROPHILS PERCENT AUTO 73 % (41-73); Platelet Count 132 K/mm3 (150-400); RDW Coefficient Variation 13.6 % (11.7-14.2); RDW Standard Deviation 46.6 fL (35.1-46.3); Red Blood Cell Count 3.78 M/mm3 (3.80-5.20); White Blood Cell Count 10.65 K/mm3 (4.00-11.30)
[2021-09-06 06:11] LABS: Albumin, Blood 1.3 g/dL (3.4-5.0); Anion Gap 9 mmol/L (6-16); Blood Urea Nitrogen 28 mg/dL (8-24); Bun/Creatinine Ratio 46.4 (12.0-20.0); CO2, Blood 21 mmol/L (21-32); Calcium, Blood 8.1 mg/dL (8.5-10.1); Chloride, Blood 113 mmol/L (98-108); Glomerular Filtration Rate >60 (60-); Glucose, Blood 110 mg/dL (70-99); Magnesium, Blood 1.8 mg/dL (1.6-2.4); Phosphorus, Blood 3.6 mg/dL (2.5-4.9); Potassium, Blood 3.9 mmol/L (3.5-5.5); Sodium, Blood 143 mmol/L (136-145)
--- NOTE | 2021-09-06 06:19 | NUR ---
SHIFT SUMMARY PT ALERT, ONLY ORIENTED TO SELF. PLEASANTLY CONFUSED. HAVING CONVERSATIONS BUT NOT REPLYING APPROPRIATELY IN THEM. TURNING HERSELF IN THE BED. DRESSING TO COCCYX REMAINS C/D/I. PT WITH SCATTERED BRUISING THROUGHOUT. CLINIMIX INFUSION AND HEPARIN DRIP CONTINUOUSLY RUNNING THROUGHOUT THE NIGHT. RATE ADJUST ON HEPARIN THIS AM. INCREASED TO 15 U/KG/HR OR 19.5 ML/HR WITH A 1500 UNIT BOLUS. PT DENIES ANY PAIN OR SOB. SLEPT OFF AND ON THROUGHOUT THE NIGHT. VITAL SIGNS REMAINED STABLE. TELEMETRY READING SINUS TACH 103. PT HAD AN UNEVENTFUL NIGHT.
--- NOTE | 2021-09-06 19:52 | NUR ---
Alert and oriented x1 -2 with some confusion. Continue on heparin drip at 19.5 ml/hr , no advsere effects noted. One person assist with adls AND Two persons assist with bed mobility and repositioning. Clinimix dc. vital signs are stable. Bed in low position and call light within reach . Continue to monitor.
--- NOTE | 2021-09-07 04:56 | NUR ---
FLOUR MIXER HELPER SUMMARY PATIENT HAD A FAIR SHIFT. SHE LODGED NILL COMPLAINTS. SHE IS STILL PLEASANTLY CONFUSED. STILL THINKS SHE IS [place]. STILL ON HEPARIN DRIP, PHARMACY IS DOSING. WILL CONTINUE TO MONIOTR HER.
[2021-09-07 05:11] LABS: BASOPHILS ABSOLUTE AUTO 0.03 K/mm3 (0.00-0.23); BASOPHILS PERCENT AUTO 0 % (0-2); EOSINOPHILS ABSOLUTE AUTO 0.09 K/mm3 (0.00-0.68); EOSINOPHILS PERCENT AUTO 1 % (0-6); Hematocrit 30.1 % (33.0-51.0); Hemoglobin 10.2 g/dL (11.5-16.0); IMMATURE GRAN ABSOLUTE AUTO 0.08 K/mm3 (0.00-0.10); IMMATURE GRAN PERCENT AUTO 1 % (0-1); LYMPHOCYTES ABSOLUTE AUTO 2.23 K/mm3 (0.84-5.20); LYMPHOCYTES PERCENT AUTO 22 % (21-46); MONOCYTES ABSOLUTE AUTO 0.95 K/mm3 (0.16-1.47); MONOCYTES PERCENT AUTO 9 % (4-13); Mean Corpuscular HGB 31.3 pg (26.0-34.0); Mean Corpuscular HGB Conc 33.9 g/dL (31.5-36.5); Mean Corpuscular Volume 92 fL (80-100); Mean Platelet Volume 11.3 fL (9.1-12.4); NEUTROPHILS ABSOLUTE AUTO 6.99 K/mm3 (1.96-9.15); NEUTROPHILS PERCENT AUTO 67 % (41-73); Platelet Count 161 K/mm3 (150-400); RDW Coefficient Variation 13.3 % (11.7-14.2); RDW Standard Deviation 45.1 fL (35.1-46.3); Red Blood Cell Count 3.26 M/mm3 (3.80-5.20); White Blood Cell Count 10.37 K/mm3 (4.00-11.30)
[2021-09-07 06:23] LABS: Alanine Aminotransfer (ALT/SGP 36 U/L (12-78); Albumin, Blood 1.4 g/dL (3.4-5.0); Albumin/Globulin Ratio 0.4 (0.8-1.8); Alk Phos 96 U/L (50-136); Anion Gap 9 mmol/L (6-16); Aspartate Aminotrans (AST/SGOT 34 U/L (12-37); Bilirubin, Total 0.4 mg/dL (0.1-1.0); Blood Urea Nitrogen 22 mg/dL (8-24); Bun/Creatinine Ratio 35.4 (12.0-20.0); CO2, Blood 21 mmol/L (21-32); Chloride, Blood 108 mmol/L (98-108); Creatinine, Blood 0.62 mg/dL (0.40-1.00); Globulin, Blood 3.4 g/dL (2.2-4.0); Glomerular Filtration Rate >60 (60-); Glucose, Blood 93 mg/dL (70-99); Magnesium, Blood 1.6 mg/dL (1.6-2.4); Potassium, Blood 3.8 mmol/L (3.5-5.5); Sodium, Blood 138 mmol/L (136-145); Total Protein, Blood 4.8 g/dL (6.4-8.2)
[2021-09-07 16:19] LABS: Hematocrit 34.4 % (33.0-51.0); Hemoglobin 11.6 g/dL (11.5-16.0)
--- NOTE | 2021-09-07 18:39 | NUR ---
Alert and oriented to self, nonsensical speaking. Continue on heparin at 27.3 ml/hr . hart cath draining straberry like color and Dr ALVAREZ notified . will continue to monitor.Mepilex dressing change on coccyx was done. Apeptite improving. Continue on tele monitor with sinus rthym at 92. No insulin coverage needed. vital signs are stable. Continue to monitor.
[2021-09-08 02:45] LABS: BASOPHILS ABSOLUTE AUTO 0.04 K/mm3 (0.00-0.23); BASOPHILS PERCENT AUTO 0 % (0-2); EOSINOPHILS ABSOLUTE AUTO 0.09 K/mm3 (0.00-0.68); EOSINOPHILS PERCENT AUTO 1 % (0-6); Hematocrit 32.1 % (33.0-51.0); Hemoglobin 10.9 g/dL (11.5-16.0); IMMATURE GRAN ABSOLUTE AUTO 0.08 K/mm3 (0.00-0.10); IMMATURE GRAN PERCENT AUTO 1 % (0-1); LYMPHOCYTES PERCENT AUTO 22 % (21-46); MONOCYTES ABSOLUTE AUTO 0.93 K/mm3 (0.16-1.47); MONOCYTES PERCENT AUTO 10 % (4-13); Mean Corpuscular HGB 31.1 pg (26.0-34.0); Mean Corpuscular Volume 92 fL (80-100); Mean Platelet Volume 10.5 fL (9.1-12.4); NEUTROPHILS ABSOLUTE AUTO 6.34 K/mm3 (1.96-9.15); NEUTROPHILS PERCENT AUTO 66 % (41-73); Platelet Count 183 K/mm3 (150-400); RDW Coefficient Variation 13.5 % (11.7-14.2); Red Blood Cell Count 3.51 M/mm3 (3.80-5.20); White Blood Cell Count 9.58 K/mm3 (4.00-11.30)
[2021-09-08 03:42] LABS: Albumin, Blood 1.4 g/dL (3.4-5.0); Anion Gap 8 mmol/L (6-16); Blood Urea Nitrogen 18 mg/dL (8-24); Bun/Creatinine Ratio 30.6 (12.0-20.0); CO2, Blood 23 mmol/L (21-32); Chloride, Blood 110 mmol/L (98-108); Creatinine, Blood 0.59 mg/dL (0.40-1.00); Glomerular Filtration Rate >60 (60-); Glucose, Blood 105 mg/dL (70-99); Magnesium, Blood 1.8 mg/dL (1.6-2.4); Phosphorus, Blood 3.8 mg/dL (2.5-4.9); Potassium, Blood 3.8 mmol/L (3.5-5.5); Sodium, Blood 141 mmol/L (136-145)
--- NOTE | 2021-09-08 04:30 | NUR ---
BULLION WEIGHER SUMMARY PT HAD A FAIR SHIFT OVERNIGHT, SHE LODGED NIL COMPALINT STILL ON HEPARIN DRIP. MGT OF HEPARIN BY PHARM. STILL HAVING BLOODY URINE AND THE HOSPITALIST WAS INFORMED, HE ORDERED FOR HG AND FOR PT BE MONITORED. VITALS ARE STABLE.
--- NOTE | 2021-09-08 19:19 | NUR ---
Alert and oriented with some confusion. Heparin is DC, ELIQUIS was given. worked with PT /OT for strength and endurance. vital signs are stable. hart is patent , draining bloody urine . will continue to monitor.
--- NOTE | 2021-09-09 04:36 | NUR ---
SUMMARY NO NEW ISSUES NOTED. PT REMAINS PLESANTLY CONFUSED. PT WINTER DRAINING TO GRAVITY. PT TAKING IN GOOD PO FLUIDS. PT DRINKING WATER AND ENSURES. PT HAS SLEPT T/OUT SHIFT. PT CURRENTLY SLEEPING IN NO DISTRESS. CALL LIGHT IN REACH AND BED ALARM ON.
[2021-09-09 05:15] LABS: Hematocrit 30.1 % (33.0-51.0); Hemoglobin 10.1 g/dL (11.5-16.0)
[2021-09-09 06:05] LABS: Albumin, Blood 1.4 g/dL (3.4-5.0); Anion Gap 9 mmol/L (6-16); Blood Urea Nitrogen 20 mg/dL (8-24); Bun/Creatinine Ratio 31.6 (12.0-20.0); CO2, Blood 22 mmol/L (21-32); Calcium, Blood 8.2 mg/dL (8.5-10.1); Chloride, Blood 109 mmol/L (98-108); Creatinine, Blood 0.63 mg/dL (0.40-1.00); Glomerular Filtration Rate >60 (60-); Glucose, Blood 91 mg/dL (70-99); Magnesium, Blood 1.8 mg/dL (1.6-2.4); Phosphorus, Blood 3.3 mg/dL (2.5-4.9); Potassium, Blood 3.9 mmol/L (3.5-5.5); Sodium, Blood 140 mmol/L (136-145)
--- NOTE | 2021-09-09 17:53 | NUR ---
PATIENT IS ALERT AND DISORIENTED. UNABLE TO HOLD MEANINGFUL CONVERSATION. ON RA. SHE WAS TRANSFERRED FROM ROOM 313 TO ROOM 364 WHICH IS A LIFT ROOM. WINTER IS IN PLACE AND DRAINING TO [facility]. PSYCHIATRY CONSULT PLACED FOR GAURDIANSHIP LETTER. WILL CONTINUE TO MONITOR
--- NOTE | 2021-09-09 18:59 | NUR ---
Alert and oriented xself with some forgetfulness and confusion. One person assist with ADLS. Denies any pain. Rincon cath is patent , draining clear yellow.Vital signs are stable. Patient is transferred to room 364 because of the need for lift. Continue to monitor.
--- NOTE | 2021-09-10 04:34 | NUR ---
PT AWAKE FOR MOST OF THE NIGHT, ORIENTED TO SELF AND PLACE AND REMAINS ON BEDREST. NO C/O COUGH OR SOB. WILL CONTINUE TO MONITOR FOR CHANGES.
[2021-09-10 05:14] LABS: Hemoglobin 10.1 g/dL (11.5-16.0)
[2021-09-10 06:35] LABS: Albumin, Blood 1.5 g/dL (3.4-5.0); Anion Gap 9 mmol/L (6-16); Blood Urea Nitrogen 16 mg/dL (8-24); Bun/Creatinine Ratio 28.5 (12.0-20.0); CO2, Blood 21 mmol/L (21-32); Calcium, Blood 8.2 mg/dL (8.5-10.1); Chloride, Blood 110 mmol/L (98-108); Creatinine, Blood 0.56 mg/dL (0.40-1.00); Glomerular Filtration Rate >60 (60-); Glucose, Blood 98 mg/dL (70-99); Magnesium, Blood 1.8 mg/dL (1.6-2.4); Phosphorus, Blood 3.7 mg/dL (2.5-4.9); Potassium, Blood 3.9 mmol/L (3.5-5.5); Sodium, Blood 140 mmol/L (136-145)
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
[2021-09-11 04:57] LABS: Hematocrit 31.5 % (33.0-51.0); Hemoglobin 10.5 g/dL (11.5-16.0)
[2021-09-11 05:35] LABS: Albumin, Blood 1.5 g/dL (3.4-5.0); Anion Gap 7 mmol/L (6-16); Blood Urea Nitrogen 21 mg/dL (8-24); Bun/Creatinine Ratio 35.3 (12.0-20.0); CO2, Blood 24 mmol/L (21-32); Calcium, Blood 8.2 mg/dL (8.5-10.1); Chloride, Blood 111 mmol/L (98-108); Glomerular Filtration Rate >60 (60-); Glucose, Blood 105 mg/dL (70-99); Magnesium, Blood 1.8 mg/dL (1.6-2.4); Potassium, Blood 4.1 mmol/L (3.5-5.5); Sodium, Blood 142 mmol/L (136-145)
--- NOTE | 2021-09-11 06:04 | NUR ---
SHIFT SUMMARY PT PLEASANTLY CONFUSED AND COOPERATIVE WITH CARE. PT. MEDICATED PER EMAR AND HAD AN UNEVENTFUL NIGHT. PT RESTED WELL THIS SHIFT AND CURRENTLY IN BED AT THE MOMENT. THIS NURSE WILL CONTINUE TO MONITOR UNTIL REPORT IS GIVEN.
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
--- NOTE | 2021-09-11 18:00 | NUR ---
CELINE MACEDO NUMBER IS [phone]
[2021-09-12 09:39] LABS: Albumin, Blood 1.7 g/dL (3.4-5.0); Anion Gap 9 mmol/L (6-16); Blood Urea Nitrogen 16 mg/dL (8-24); Bun/Creatinine Ratio 27.8 (12.0-20.0); CO2, Blood 21 mmol/L (21-32); Calcium, Blood 8.5 mg/dL (8.5-10.1); Chloride, Blood 111 mmol/L (98-108); Creatinine, Blood 0.58 mg/dL (0.40-1.00); Glomerular Filtration Rate >60 (60-); Glucose, Blood 153 mg/dL (70-99); Magnesium, Blood 1.9 mg/dL (1.6-2.4); Phosphorus, Blood 3.8 mg/dL (2.5-4.9); Potassium, Blood 4.5 mmol/L (3.5-5.5); Sodium, Blood 141 mmol/L (136-145)
--- NOTE | 2021-09-12 17:55 | NUR ---
SHIFT SUMMARY PT IS ALERT AND PLEASANTLY CONFUSED. SHE HAS BEEN COOPERATIVE WITH CARE TODAY. PT HAS BEEN IN BED TODAY AND INC. ATTENDS AND WINTER CATH IN PLACE. PLANS FOR GAURDIANSHIP AND PLACEMENT PENDING FOR D/C PLANNING. NO OTHER CHANGGES TO REPORT THIS SHIFT.
[2021-09-13 05:10] LABS: Hematocrit 34.3 % (33.0-51.0); Hemoglobin 11.3 g/dL (11.5-16.0)
[2021-09-13 06:08] LABS: Albumin, Blood 1.7 g/dL (3.4-5.0); Anion Gap 8 mmol/L (6-16); Blood Urea Nitrogen 19 mg/dL (8-24); Bun/Creatinine Ratio 34.3 (12.0-20.0); CO2, Blood 23 mmol/L (21-32); Calcium, Blood 8.5 mg/dL (8.5-10.1); Chloride, Blood 113 mmol/L (98-108); Creatinine, Blood 0.55 mg/dL (0.40-1.00); Glomerular Filtration Rate >60 (60-); Glucose, Blood 100 mg/dL (70-99); Phosphorus, Blood 4.5 mg/dL (2.5-4.9); Potassium, Blood 4.2 mmol/L (3.5-5.5); Sodium, Blood 144 mmol/L (136-145)
--- NOTE | 2021-09-13 06:27 | NUR ---
SHIFT SUMMARY PT AOX1 AND PLEASANTLY CONFUSED BUT KNOWS HOW TO USE THE CALL LIGHT FOR NEEDS. PT. WAS READING AT THE START OF THIS SHIFT AND MEDICATED PER EMAR. PT. RESTED WELL AND CURRENTLY IN BED DENYING ANY NEEDS AT THE MOMENT. THIS NURSE WILL CONTINUE TO MONITOR UNTIL REPORT IS GIVEN.
--- NOTE | 2021-09-13 15:24 | NUR ---
DAY SHIFT SUMMARY PLEASANTLY CONFUSED PT. DEMENTIA, ORIENTED TO SELF. WINTER IN PLACE,PATENT, AND DRAINING BY GRAVITY. BLACK CRUSTED AREA TO SACRAL AREA, CLEANED AND COVERED WITH MEPILEX. PT DENIES PAIN AT THIS TIME. COOPERATIVE WITH CARE. PATIENT WORKED TODAY WITH PHYSICAL THERAPY IN ROOM, PER DEANA, PT PATIENT WAS ABLE TO GET TO THE SIDE OF BED AND SLIGHTLY LIFT BUTTOCK OFF BED. PATIENT AWAITING PLACEMENT. CALL LIGHT WITHIN REACH OF PT, ABLE TO USE CALL LIGHT.
[2021-09-14 04:53] LABS: Hematocrit 32.7 % (33.0-51.0); Hemoglobin 10.8 g/dL (11.5-16.0)
[2021-09-14 05:50] LABS: Albumin, Blood 1.8 g/dL (3.4-5.0); Anion Gap 7 mmol/L (6-16); Blood Urea Nitrogen 18 mg/dL (8-24); Bun/Creatinine Ratio 29.5 (12.0-20.0); CO2, Blood 24 mmol/L (21-32); Calcium, Blood 8.8 mg/dL (8.5-10.1); Chloride, Blood 112 mmol/L (98-108); Creatinine, Blood 0.61 mg/dL (0.40-1.00); Glomerular Filtration Rate >60 (60-); Glucose, Blood 93 mg/dL (70-99); Phosphorus, Blood 4.4 mg/dL (2.5-4.9); Potassium, Blood 4.2 mmol/L (3.5-5.5); Sodium, Blood 143 mmol/L (136-145)
--- NOTE | 2021-09-14 06:16 | NUR ---
SHIFT SUMMARY PT AOX1 AND RESTING IN BED AT THE START OF THIS SHIFT. PT STILL REMAINS PLEASANTLY CONFUSED AND COOPERATIVE WITH CARE. PT HAS C/O TREJO THE LAST TWO NIGHTS AND MEDICATED PER EMAR (WHICH HAS BEEN EFFECTIVE). PT. CURRENTLY ASLEEP WITH RISE AND FALL OF CHEST. THIS NURSE WILL CONTINUE TO MONITOR UNITL REPORT IS GIVEN.
--- NOTE | 2021-09-14 16:19 | NUR ---
DAY SHIFT SUMMARY PLEASANTLY CONFUSED. BLACK CRUSTED PRESSURE WOUND TO SACRAL AREA, CLEANED AND COVERED WITH MEPILEX. WORKED WITH OT TODAY TO GET TO BEDSIDE CHAIR. WITH LIFT ABLE TO TRANSFER TO BEDSIDE CHAIR. ALERT AND ORIENTED TO SELF. WINTER INTACT/PATENT/DRAINING BY GRAVITY. CALL LIGHT WITHIN REACH.
--- NOTE | 2021-09-15 06:05 | NUR ---
SHIFT SUMMARY PT AOX1 AND PLEASANTLY CONFUSED WHILE COOPERATIVE CARE THIS SHIFT. PT ABLE TO EXPRESS SOME NEEDS AND KNOWS HOW TO USE THE CALL LIGHT AT TIMES. PT. C/O A TREJO BUT WAS MEIDCATED PER EMAR AND EFFECTIVE. PT. DENIES ANY NEEDS AT THE MOMENT, WILL CONTINUE TO MONITOR UNTIL REPORT IS GIVEN.
[2021-09-15 06:11] LABS: Hematocrit 33.4 % (33.0-51.0)
[2021-09-15 07:17] LABS: Albumin, Blood 1.8 g/dL (3.4-5.0); Anion Gap 8 mmol/L (6-16); Blood Urea Nitrogen 15 mg/dL (8-24); Bun/Creatinine Ratio 23.5 (12.0-20.0); CO2, Blood 23 mmol/L (21-32); Calcium, Blood 8.6 mg/dL (8.5-10.1); Chloride, Blood 110 mmol/L (98-108); Creatinine, Blood 0.64 mg/dL (0.40-1.00); Glomerular Filtration Rate >60 (60-); Glucose, Blood 91 mg/dL (70-99); Phosphorus, Blood 4.9 mg/dL (2.5-4.9); Potassium, Blood 4.1 mmol/L (3.5-5.5); Sodium, Blood 141 mmol/L (136-145)
--- NOTE | 2021-09-15 18:40 | NUR ---
Shift Summary A/O to self. Pleasantly confused. Patient has unstagable decubitis to coccyx and ulcers to bilat heels. Photos updated and wound care documtation done. Wound cleansed and dressing changed. L heel has a blood blister and a skin tear. Will provide foam heel protectors to prevent further tear. Powerglide dressing changed. Worked with PT/OT. Sergey meyers and draining. No additional concerns.
--- NOTE | 2021-09-16 06:11 | NUR ---
SHIFT SUMMARY ASSUMED CARE AT 1900. PT REMAINS ON ISOLATION FOR +COVID. PT IS AAOX1-2, PLEASANTLY CONFUSED. ABLE TO FOLLOW SOME DIRECTIONS. RUE POWERGLIDE REMAINS IN PLACE, SITE BENIGN. FOLWY CATHETER PATENT, DRAINING CLEAR YELLOW URINE VIA GRAVITY. PT DENIES PAIN AND DISCOMFORT WHEN ASKED. BILATERAL HEEL PROTECTING FOAMS IN PLACE. PT TURNED/REPOSITIONED FREQUENTLY. SCHEDULED MEDICATIONS ADMINISTERED WITH NO ISSUES. DYSPHAGIA PPRECAUTIONS MAINTAINED AND NO COUGHING NOTED. BED ALARM REMAINS ACTIVATED. BED IS IN LOW POSITION WITH THE CALL LIGHT WITHIN EASY REACH. WILL CONTINUE TO MONITOR.
--- NOTE | 2021-09-16 17:47 | NUR ---
SHIFT SUMMARY: NO ACUTE EVENTS. ORIENTED X 1-2, LABILE, SOMETIMES FORGETS WHERE SHE IS. C/O BACK PAIN, GAVE TYLENOL WITH GOOD RELIEF. INCONTINENT OF STOOL, WINTER DRAINING YELLOW URINE. WOUND ON COCCYX WITH ESCHAR, SLOUGH, FOUL ODOR, MODERATE DRAINAGE. WOUNDS ON BILATERAL HEELS NOT OBSERVED PATIENT WAS HAVING PAIN DURING ASSESSMENT. WOUND CONSULT PLACED. INFECTION WREATH AND GARLAND MAKER STATED THAT PT CAN COME OFF ISOLATION ON 09/19/21.
[2021-09-17 04:50] LABS: Hematocrit 31.2 % (33.0-51.0); Hemoglobin 10.5 g/dL (11.5-16.0)
[2021-09-17 05:43] LABS: Albumin, Blood 1.7 g/dL (3.4-5.0); Anion Gap 11 mmol/L (6-16); Blood Urea Nitrogen 11 mg/dL (8-24); Bun/Creatinine Ratio 19.4 (12.0-20.0); CO2, Blood 22 mmol/L (21-32); Calcium, Blood 8.4 mg/dL (8.5-10.1); Chloride, Blood 109 mmol/L (98-108); Creatinine, Blood 0.57 mg/dL (0.40-1.00); Glomerular Filtration Rate >60 (60-); Glucose, Blood 146 mg/dL (70-99); Magnesium, Blood 1.9 mg/dL (1.6-2.4); Phosphorus, Blood 3.3 mg/dL (2.5-4.9); Potassium, Blood 3.6 mmol/L (3.5-5.5); Sodium, Blood 142 mmol/L (136-145)
--- NOTE | 2021-09-17 05:48 | NUR ---
SHIFT SUMMARY ASSUMED CARE AT 1900. REMAINS ON ISOLATION FOR COVID+. PT REMAINS AAOX1-TO SELF. PLEASANT AND ABLE TO FOLLOW SIMPLE DIRECTIONS. NO ACUTE EVENTS OCCURRED OVERNIGHT. PT WITH GENERALIZED WEAKNESS AND REQUIRES MAXIMUM ASSISTANCE. PT W/ RUE POWERGLIDE, NO BLOOD RETURN BUT FLUSHES WITH EASE, SITE BENIGN. COCCYX DRESSING INTACT. BILATERAL HEEL FOAMS IN PLACE. WINTER CATHETER IN PLACE, PATENT, DRAINING URINE VIA GRAVITY. HER SCHEDULED MEDICATIONS WERE ADMINISTERED. MORNING LABS WERE DRAWN BY SOFTWARE DEVELOPMENT ANALYSTBASILIO. BED ALARM REMAINS ACTIVATED. BED IS IN LOW POSITION WITH THE CALL LIGHT WITHIN EASY REACH-BUT PT DOESNOT SHOW SIGNS OF UNDERSTANDING HOW TO USE THE CALL LIGHT. WILL CONTINUE TO MONITOR.
--- NOTE | 2021-09-17 18:49 | NUR ---
SHIFT SUMMARY PT RESTING QUIETLY AT START OF SHIFT, WOKE EASILY FOR CARE. WEAK AND DECONDITIONED. HX OF ALZ DEMENTIA. PT WAITING FOR DETENTION PLACEMENT. DECUBITIS ULCER TO COCCYX WITH VERY FOUL SMELLING DRAINAGE. PT INCONTINENT OF STOOL THIS AM. PT CLEANED AND CHANGED. PT LATER REQUESTED BEDPAN THIS AFTERNOON FOR BM. DRSG TO COCCYX CHANGED. WOUND CLEANED WITH SKIN INTEGRITY, AND NEW ALGINATE PLACED WITH NEW MEPILEX. PT REPOSITIONED WITH BUTTOCKS FLOATED OFF WOUND. ABLE TO FEED SELF, DRINKING WELL. CALL LT IN REACH.
[2021-09-18 04:37] LABS: Hematocrit 30.6 % (33.0-51.0); Hemoglobin 10.3 g/dL (11.5-16.0)
[2021-09-18 04:55] LABS: Albumin, Blood 1.7 g/dL (3.4-5.0); Anion Gap 9 mmol/L (6-16); Blood Urea Nitrogen 9 mg/dL (8-24); Bun/Creatinine Ratio 16.8 (12.0-20.0); CO2, Blood 21 mmol/L (21-32); Calcium, Blood 8.5 mg/dL (8.5-10.1); Chloride, Blood 110 mmol/L (98-108); Creatinine, Blood 0.54 mg/dL (0.40-1.00); Glomerular Filtration Rate >60 (60-); Glucose, Blood 101 mg/dL (70-99); Magnesium, Blood 1.9 mg/dL (1.6-2.4); Phosphorus, Blood 3.9 mg/dL (2.5-4.9); Potassium, Blood 3.6 mmol/L (3.5-5.5); Sodium, Blood 140 mmol/L (136-145)
--- NOTE | 2021-09-18 06:17 | NUR ---
SHIFT SUMMARY ASSUMED CARE AT 1900. PT REMAINS IN ISOLATION. PT REMAINS CONFUSED. SCHEDULED MEDICATIONS ADMINISTERED. NO COMPLAINTS OF PAIN. RUE POWERGLIDE SITE BENIGN. WINTER CATHETER PATENT, DRAINING URINE VIA GRAVITY. DRESSING TO COCCYX REMAINS INTACT. BILATERAL FOAM HEEL PROTECTORS IN PLACE. VITALS STABLE. BED ALARM REMAINS ACTIVATED AND BED IN LOW POSITION WITH THE CALL LIGHT WITHIN EASY REACH. NO ACUTE EVENTS OVERNIGHT. WILL CONTINUE TO MONITOR.
--- NOTE | 2021-09-18 14:49 | NUR ---
ALERT TO SELF, SOMETIMES WHERE SHE IS AT. COOPERATIVE. CHRONIC PAIN BACK. DRESSING TO D.U BUTTOCK CHANGED, CLEANED AND THEN CALCIUM AGINATE PLACED IN WOUND THEN MEPILEX. PINK FOAM BOOTIES PLACED. RED, SCALEY SKIN CIRCUMORAL BILATERAL SHINS. WOUND CLINIC CONSULT ORDERED, BUT HAS NOT SEEN PATIENT YET. UNLABORED RESPIRATIONS. WCTM
--- NOTE | 2021-09-19 05:57 | NUR ---
SHIFT SUMMARY ASSUMED CARE AT 1900. PT REMAINS CONFUSED. RUE POWERGLIDE DRESSING INTACT, SITE BENIGN. WINTER CATHETER PATENT,DRAINING URINE VIA GRAVITY. COCCYX DRESSING IS INTACT. BILATERAL FOAM HEEL PROTECTORS IN PLACE. NO ACUTE EVENTS OVERNIGHT. BED ALARM REMAINS ACTIVATED. BED IS IN LOW POSITION WITH THE CALL LIGHT WITHIN EASY REACH. WILL CONTINUE TO MONITOR.
--- NOTE | 2021-09-19 17:18 | NUR ---
HEEL MEPILEX APPLIED BILATERAL HEELS, THEN PINK FOAM PROTECTORS. BLISTER LIKE ON HEELS WITH LEFT >RT SIDE. SCAB LEFT LATERAL HEEL.
--- NOTE | 2021-09-19 18:41 | NUR ---
ALERT. TO SELF. POOR APPETITE. UNLABORED RESPIRATIONS. WOUND CARE CLINIC SHOULD BE SEEING PATIENT TOMORROW. TURNED Q [address] TO GRAVITY DRAINING YELLOW COLORED URINE. POWERGLIDE PATENT. AWAITING GUARDIANSHIP THEN PLACEMENT. [facility]
--- NOTE | 2021-09-20 00:30 | NUR ---
PT WAS INCONTINENT OF STOOL W/ATTENDS CHANGED PRN. MEPILEX DX HAD BECOME SOILED SO WAS REMOVED. SATURATED CALCIUM ALGINATE FELL OUT OF VERY DEEP WOUND BED DURING PROCESS. UNSTAGEABLE DECUB ULCER WAS CLEANSED W/SKINTEGRITY, NEW CALCIUM ALGINATE WAS APPLIED AND MEPILEX WAS REPLACED. WOUND HAS A VERY FOUL ODOR W/LARGE AMT OF ATTACHED [place] MOIST SLOUGH AT WOUND CENTER. WOUND CLINIC NEEDS CONSULTED FOR FURTHER EVAL AND TX. TURN SCHEDULE BEING MAINTAINED AND AIRBED IS IN PLACE FOR ADDITIONAL SBD PREVENTION.
[2021-09-20 04:41] LABS: Hematocrit 32.4 % (33.0-51.0); Hemoglobin 10.7 g/dL (11.5-16.0); Mean Corpuscular HGB 30.8 pg (26.0-34.0); Mean Corpuscular Volume 93 fL (80-100); Mean Platelet Volume 9.2 fL (9.1-12.4); Platelet Count 452 K/mm3 (150-400); RDW Coefficient Variation 13.5 % (11.7-14.2); RDW Standard Deviation 45.9 fL (35.1-46.3); Red Blood Cell Count 3.47 M/mm3 (3.80-5.20); White Blood Cell Count 7.78 K/mm3 (4.00-11.30)
[2021-09-20 05:39] LABS: Albumin, Blood 1.7 g/dL (3.4-5.0); Anion Gap 8 mmol/L (6-16); Blood Urea Nitrogen 10 mg/dL (8-24); Bun/Creatinine Ratio 17.5 (12.0-20.0); CO2, Blood 23 mmol/L (21-32); Calcium, Blood 8.8 mg/dL (8.5-10.1); Chloride, Blood 108 mmol/L (98-108); Creatinine, Blood 0.57 mg/dL (0.40-1.00); Glomerular Filtration Rate >60 (60-); Glucose, Blood 95 mg/dL (70-99); Magnesium, Blood 1.9 mg/dL (1.6-2.4); Phosphorus, Blood 3.8 mg/dL (2.5-4.9); Potassium, Blood 3.6 mmol/L (3.5-5.5); Sodium, Blood 139 mmol/L (136-145)
--- NOTE | 2021-09-20 06:49 | NUR ---
SUMMARY: PT'S MENTATION IS VARIABLE. AT TIMES SHE'S ORIENTED TO SELF AND SURROUNDINGS BUT OTHER TIMES IS CONFUSED W/BIZZARE CONVERSATION. REMINDERS PROVIDED PRN AND SHE'S PLEASANT/COOPERATIVE W/CARE. BED ALARM ON FOR FALL RISK W/Q2H TURN SCHEDULE MAINTAINED. PT HAS UNSTAGEABLE DECUB ULCER TO COCCYX W/DRESSING CHANGED THIS SHIFT AFTER BECOMING SOILED W/STOOL. SEE PREVIOUS NOTE FOR WOUND DETAILS. SHE HAS ADDITIONAL SORES/SCABS TO BLE'S/HEELS W/MEPILEXES AND HEEL PROTECTORS IN PLACE. WOUND CLINIC NEEDS CONSULTED, DAY RN MADE AWARE. WINTER IS PATENT AND DRAINING AND ATTENDS CHANGED PRN. TYLENOL RECIEVED FOR TOLERABLE RELIEF OF BACK/BUTTOCKS PAIN AND AIR BED IN PLACE. NO ACUTE CHANGES, VSS/AFEBRILE. GUARDIANSHIP AND PLACEMENT PENDING. WCTM AND REPORT TO DAY RN.
--- NOTE | 2021-09-20 08:00 | NUR ---
pt laying in bed awake, alert to self, makes nonsensical remarks, follows some commands, but needs a lot of direction, lungs are clear, dim in bases, resp even and unlabored, no cough noted, hrr, edema noted to b/l le, ppp+2, cap refill <3sec, vs stable, afebrile, iv is power glide to paula, site is clear and patent, but doesn't draw, btx4, abd flat soft nontender, incont of urine and stool, attends in place, hart cath draining yellow urine, skin has multiple wounds, one to coccyx is deep and unstagable, with escar and very odorus smell, is packed with alginate, with mepilex covering, heels also have wounds, dressings in place, pictures in chart, is total care, isn't able to help with turning as she doesn't follow directions well. becca, call light in reach.
--- NOTE | 2021-09-20 11:04 | NUR ---
Dr. sneed to see pt, showed him her wound and changed dressing and attends as she is soiled, he will put in a surgical consult, and asked for stronger pain med than tylenol, he will put in some tramadol, also placed egg crate mattress on bed. OT working with her at this time.
--- NOTE | 2021-09-20 13:35 | NUR ---
At time of walking by pt's room, pt stated she will not eat this lunch because it is not vegetarian. After discussion with pt, she does eat fish and eggs, RD updated diet order to be vegetarian. Pt does seem confused. It is okay if pt orders meat at anytime while on the vegetarian diet. RD to alert kitchen to allow meat when ordered.
--- NOTE | 2021-09-20 15:29 | NUR ---
pt sat up in recliner for a few hrs, just got her back to bed via lift, and changed attends, placed on side with pillows for comfort. call light in reach.
--- NOTE | 2021-09-20 17:51 | NUR ---
pt on phone with friends. recieved rossi from friends. will continue to monitor.
--- NOTE | 2021-09-20 18:07 | NUR ---
pt refused dinner, would agree to eat applesauce later, continues to be confused, call light in reach.
--- NOTE | 2021-09-21 03:06 | NUR ---
PT with AMS ARF Dementia, UTI, dcub ulcers, hx of covid 19. Has deep pressure ulcers bilat heels sacral coccyx. Wound care to area, eggcrate to bed, heel protectors, elevate heels off bed. MDs aware of dcubs & reviewed chart for current wound care orders. DR Teresa updated & wound care & photodoc wounds orders obtained. Eggcrate to bed, turn & reposition Q 2 hrs.
--- NOTE | 2021-09-21 19:04 | NUR ---
SUMMARY- PT ALERT TO SELF, CONFUSED, DEPENDANT IN CARE. WINTER PATENT. PAINFUL WITH TURNS. ULTRAM FOR PAIN WITH MOD RELEIF. TOLERATING FOOD AND FLUIDS. XL BM TODAY WITH DIG ASSIST.
[2021-09-22 04:36] LABS: Hematocrit 29.6 % (33.0-51.0); Hemoglobin 9.7 g/dL (11.5-16.0)
[2021-09-22 05:47] LABS: Albumin, Blood 1.7 g/dL (3.4-5.0); Anion Gap 7 mmol/L (6-16); Blood Urea Nitrogen 16 mg/dL (8-24); Bun/Creatinine Ratio 28.3 (12.0-20.0); CO2, Blood 24 mmol/L (21-32); Calcium, Blood 8.5 mg/dL (8.5-10.1); Chloride, Blood 109 mmol/L (98-108); Creatinine, Blood 0.57 mg/dL (0.40-1.00); Glomerular Filtration Rate >60 (60-); Glucose, Blood 90 mg/dL (70-99); Magnesium, Blood 1.9 mg/dL (1.6-2.4); Potassium, Blood 4.1 mmol/L (3.5-5.5); Sodium, Blood 140 mmol/L (136-145)
--- NOTE | 2021-09-22 19:02 | NUR ---
SUMM- PT ALERT TO SELF. PLEASANTLY CONFUSED, JOVIAL AND DELUSIONS. DEPENDANT IN CARE. WINTER PATENT, INCONT BOWEL. PICTURE OF SACRAL DECUB, AUTOLYTICALLY DEPREIDING, COUND BED PINK AND BEEFY WITH MIN YELLOW SLOUGH. CALCIUM ALGINATE AND MEPILEX DERSSING CHANGED 1600, SALING FLUSH OF WOUND AND CLEANSED PERIMETER SKIN, SKIN PREP. HEALING NICELY, CONT WITH MOD FOUL SMELL. PT TOLERATED 100% BREAKFAST AND DINNER REFUSED LUNCH. WILL REPOR TO PAWEL ROSAS.
--- NOTE | 2021-09-23 06:24 | NUR ---
PT starting to feel better. She had improved oral intake, took high rukhsana milkshake when set up & had ice cream mixed with ensure. She is moving better rolling in bed side to side for attends changes & position changes. ON special air bed had eggcrate also to promote healing prevent further skin breakdown. continues with pleasant confusion flight of ideas. Guardianship papers in chart, needs placement for safe dc plan.
--- NOTE | 2021-09-23 18:49 | NUR ---
SHIFT SUMMARY PT WITH LITTLE APPETITE. PUSHING FOOD AWAY AT LUNCHTIME. CONVINCED PT TO DRINK A STRAWBERRY SHAKE WITH ENSURE. DID DRINK THAT AT LUNCH AND THEN ATE HALF OF HER DINNER. DRESSING CHANGED TO COCCYX AND BL HEELS. TURNED Q2H BUT PT WOULD WRIGGLE HESELF OFF OF PILLOWS TO HER BACK. PG DRESSING CHANGED TODAY WELL. VERY CONFUSED AND UNABLE TO TELL ME WHERE SHE IS.
--- NOTE | 2021-09-24 05:11 | NUR ---
SHIFT SUMMARY PT AOX1 AND PLEASANTLY CONFUSED ATTEMPTING TO GET OUT OF BED AT THE START OF THIS SHIFT. THIS NURSE ASSISTED THE PT BACK IN BED FROM BEING HALF WAY OUT UPON INTITAL ROUNDS AND PLACED THE BED ALARM ON. THE PT C/O A TREJO AND STATED THAT, "I HAVE BEEN RUNNING FEVER ALL DAY YOU THINK YOU COULD STOP BY [facility] FOR TYLENOL?" THE PT WAS MEDICATED PER EMAR THIS SHIFT. THE PT. WAS ATTEMPTING TO GET OUT OF BED AGAIN BUT WAS STARTLED BY THE BED ALARM AND THREW THEIR FEET BACK ON THE BED. PT. CURRENTLY AWAKE WAITING ON BREAKFAST BUT DENIES ANY OTHER NEEDS AT THE MOMENT. THIS NURSE WILL CONTINUE TO MONITOR UNTIL REPORT IS GIVEN.
--- NOTE | 2021-09-24 18:16 | NUR ---
SHIFT SUMMARY PT TURNED Q2 HOURS. EATING ONLY SMALL AMOUNTS OF FOOD. MILK SHAKE MADE WITH ENSURE GIVEN BETWEEN MEALS THIS AFTERNOON. DRESSING CHANGED TO COCCYX WOUND. ALGINATE SHRANK AND DRESSING REMOVED AT LEAST 50% SATURATED. DENIED PAIN THROUGH DAY.
--- NOTE | 2021-09-25 06:16 | NUR ---
SHIFT SUMMARY PT AOX1 BUT PLEASANTLY CONFUSED ABOUT LOCATION/ EVENTS BUT SOMETIMES RECALLS BEING ILL. PT. THINKS THEY ARE IN THEIR HOME AND DID NOT ATTEMPT TO EXIT BED THIS SHIFT. PT DID NOT SLEEP WELL AND CALLED FOR PAIN MEDICATION WHILE BE REPOSITIONED ORDERED. PT ATE A SNACK WITH ENSURE THIS SHIFT AND CURRENTLY BACK ASLEEP WITH RISE AND FALL OF CHEST. WILL CONTINUE TO MONITOR UNTIL REPORT IS GIVEN.
--- NOTE | 2021-09-25 17:57 | NUR ---
PT REMAINS PLEASANTLY CONFUSED, SQUIRMS AND REPOSITIONS SELF FREQUENTLY. SACRAL WOUND DRESSING AND PACKING CHANGED TODAY. WINTER IS PATENT AND DRAINING, WAITING FOR PLACEMENT AND GUARDIANSHIP. NO ACUTE CHANGES NOTED THIS SHIFT, WILL CONTINUE TO MONITOR AND REPORT TO ONCOMING RN
--- NOTE | 2021-09-26 05:40 | NUR ---
SHIFT SUMMARY PT AOX1 AND PLEASANTLY CONFUSED BUT REMEMBERED IT WAS RUSLAN. PT ASKED FOR A SNACK AND USED THE CALL LIGHT WHEN NEEDED THINGS INSTEAD OF CALLLING OUT INTO THE HEADLEY. PT HAD A LARGE BM THAT HAD SOME BLOOD IN IT AND LOOKED LIKE TAR WITH STRONG ODOR. PT DRESSING INTACT AND C/O PAIN WITH TURNS, MEDICATED PER EMAR. PT RESTED WELL THIS SHIFT WITH NO S/S OF DISTRESS, WILL CONTINUE TO MONITOR UNTIL REPORT IS GIVEN.
--- NOTE | 2021-09-26 11:12 | NUR ---
SACRAL WOUND DRESSING REMOVED, WOUND CLEANED AND REDRESSED WITH CALCIUM ALGINATE AND MEPILEX
[2021-09-27 05:47] LABS: Anion Gap 9 mmol/L (6-16); Blood Urea Nitrogen 10 mg/dL (8-24); Bun/Creatinine Ratio 19.2 (12.0-20.0); CO2, Blood 23 mmol/L (21-32); Calcium, Blood 8.6 mg/dL (8.5-10.1); Chloride, Blood 110 mmol/L (98-108); Creatinine, Blood 0.52 mg/dL (0.40-1.00); Glomerular Filtration Rate >60 (60-); Glucose, Blood 97 mg/dL (70-99); Potassium, Blood 3.8 mmol/L (3.5-5.5); Sodium, Blood 142 mmol/L (136-145)
--- NOTE | 2021-09-27 05:51 | NUR ---
SHIFT SUMMARY PT AOX1 AND COOPERATIVE WITH CARE THIS SHIFT. PT WAS MORE AWARE OF CURRENT EVENTS THAN USUAL THIS SHIFT. PT RECALLED SPEAKING WITH THE DOCTOR ABOUT THEIR COCCYX AREA AND THAT TYLENOL WAS GIVEN FOR A TREJO ON THE PREVIOUS SHIFT. PT RESTED WELL WITH RISE AND FALL OF CHEST. PT STILL ASLEEP WITHOUT S/S OF DISTRESS, WILL CONTINUE TO MONITOR UNTIL REPORT IS GIVEN.
--- NOTE | 2021-09-27 18:35 | NUR ---
SHIFT SUMMARY PT WORKED WITH OCCUPATIONAL THERAPY THIS SHIFT AND SAT ON SIDE OF BED. PT REPORTED FEELING DIZZY WHILE SITTING UP AND AFTER. NO COMPLAINTS OF PAIN. DRESSING TO COCCYX CHANGED LATE MORNING. PT HAS SMALL APPETITE AND DOESN'T EAT MUCH OF HER MEALS. PT IS PLEASANTLY CONFUSED AND COOPERATIVE WITH CARE. PT HAS HAD MULTIPLE SOFT BOWEL MOVEMENTS THIS SHIFT. NO ACUTE CHANGES. CALL LIGHT IN REACH. WILL CONTINUE TO MONITOR AND REPORT TO ONCOMING RN.
--- NOTE | 2021-09-28 04:43 | NUR ---
SHIFT SUMMARY PT AOX1 AND PLEASANTLY CONFUSED STILL THIS SHIFT. PT HAD TWO LARGE BMs THIS SHIFT AND COOPERATIVE WITH CARE. PT RESTED WELL AND WAS MEDICATED PER EMAR THIS SHIFT. PT C/O A TREJO AND COCCYX PAIN BUT PRN WAS EFFECTIVE. PT CURRENTLY WATCHING TV AND DENIES ANY NEEDS. THIS NURSE WILL CONTINUE TO MONITOR UNTIL REPORT IS GIVEN.
--- NOTE | 2021-09-28 18:52 | NUR ---
SHIFT SUMMARY PATIENT IS AAOX3 BUT SOMETIMES GETS CONFUSED THROUGHOUT THE DAY AND EASILY REORIENTED TO TIME. ASKS QUESTIONS WHEN BECOMES CONFUSED. PATIENT HAD BM X 2 TODAY OF SOFT MATTER. DRESSING TO SACRAL WAS CLEANED AND CHANGED PER MD ORDERS AND NEW PICTURES TAKEN. SITE APPEARS TO BE HEALING AND GETTTING SMALLER COMPARED TO LAST PICTURES TAKEN. EDGES APPROIMATE. VSS. NAD NOTED. HAS NO C/O PAIN, SOB, N/V, OR DISCOMFORT VOICED. IV IN PLACE. WINTER WITH YELLOW NINOSKA URINE NOTED PER BAG. WORKED WITH PT ON TODAY. CALL LIGHT WITHIN REACH. WILL REPORT OFF TO ONCOMING NURSE.
--- NOTE | 2021-09-29 05:57 | NUR ---
SHIFT SUMMARY PT AOX1 AND STILL PLEASANTLY CONFUSED BUT EASY TO REDIRECT. PT ATE A SANDWICH AND FRUIT BEFORE BED, TOLERATED WELL. PT DID NOT UNDERSTAND NO STRAW ORDER BUT TOOK MEDS FINE PER EMAR. PT C/O COCCYX PAIN AND TREJO AT THE START OF THIS SHIFT MEDICATION WAS EFFECTIVE. PT RESTED WELL WITH RISE AND FALL OF CHEST, DID NOT WAKE DURING TURNS. CURRENTLY WATCHING TV AND DENIES ANY NEEDS AT THE MOMENT, WILL CONTINUE TO MONITOR UNTIL REPORT IS GIVEN.
--- NOTE | 2021-09-29 18:45 | NUR ---
SHIFT SUMMARY PATIENT IS AAOX2 AT THIS TIME AND WAS CONFUSED ALL DAY. HAD TO BEREORIENTED TO PLACE AND TIME. SHE WAS AGGITATED MOST OF THE DAY UNTIL LATER EVENING. JUST UNSURE OF WHAT SHE WAS SAYING AND ASKING FOR. USING MIXED WORDS AND CONVERSATION ALL OVER THE PLACE AND MADE NO SENSE. SHE WAS PLACED IN THE CHAIR ON TODAY PERLIFT AND STAYED FOR 4 HOURS AND RETURNED BACK TO BED THIS PM. VSS. NAD NOTED. DSG TO SACRAL D/I WITH FOUL ODOR NOTED WHENEVER CHANGED. C/O OF DISCOMFORT TO BOTTOM AND TURNED EVERY 2 HOURS TO POSITION FOR COMFORT. WILL CONTINUE TO MONITOR IN CARE UNTIL NEW ONCOMING NURSE TAKES OVER.
--- NOTE | 2021-09-30 06:31 | NUR ---
SHIFT SUMMARY PATIENT ALERT AND ORIENTED X2. HAD NO COMPLAINTS OF PAIN OR SHORTNESS OF BREATH. NO ACUTE ISSUES NOTED OVERNIGHT. DRESSING ON COCCYX CHANGED THIS MORNING. BED IN LOWEST POSITION WITH WHEELS LOCKED AND ALARM ON. CALL LIGHT WITHIN REACH. REPORT GIVEN TO ONCOMING RN.
--- NOTE | 2021-09-30 18:34 | NUR ---
SHIFT SUMMARY PATIENT HAS BEEN CONFUSED AND SCATTERED SINCE AM AND REMAINS VERY CONFUSED. DOES NOT USE COMPLETE SENTENCES THAT MAKE SENSE. SHE SPEAKS IN BROKEN LANGUAGE. SHE IS AAOX1 ONLY. UNAWARE OF PLACE OR TIME. ATE MOST OF HER MEALS ON TODAY. DID GET UP TO THE CHAIR VIA LIFT FOR 2 HOURS WITH NO ISSUES. DRESSING CHANGED TO SACRUM PER MD ORDERS. HAS MODERATE AMOUNT OF BROWNISH SEROSANGIOUS DRAINAGE NOTED WITH REMOVED GAUZE. PLACED NEW DRESSING TO SITE AND COVERED. SITE WITH VERU FOUL AND LOUD ODOR. VSS. NAD NOTED. WINTER WITH YELLOW URINE IN PLACE AND SVETLANA CARE COMPLETED. DID COMPLAIN OF PAIN THIS PM TO BOTTOM AND MEDICATED WITH TRAMADOL PO. WILL CONTINUE TO MONITOR IJ CARE UNTIL NEW NURSE ARRIVES.
--- NOTE | 2021-10-01 05:39 | NUR ---
SHIFT SUMMARY PATIENT ALERT AND ORIENTED X2. HAD NO COMPLAINTS OF PAIN OR SHORTNESS OF BREATH. NO ACUTE ISSUES NOTED OVERNIGHT. BED IN LOWEST POSITION WITH WHEELS LOCKED AND ALARM ON. CALL LIGHT WITHIN REACH. REPORT GIVEN TO ONCOMING RN.
--- NOTE | 2021-10-01 19:13 | NUR ---
SHIFT SUMMARY PT IS AAOX1 ONLY. UNAWARE OF PLACE AND TIME. EASILY REDIRECTED. SPEAKS IN CONFUSED LANGUAGE AND INDULGES IN CONVERSATION BUT ANSWERS ARE NOT APPRIOPRIATE. WOUND TO SACRUM/COCCXY WAS CHANGED X 2 TODAY R/T BM LOOSE STOOL. VSS. NAD NOTED. HAD C/O PAIN X 1 AND MEDICATED WITH TRAMADOL. NO C/O SOB, N/V OR DISCPMFORT VOICED. TOLERATED MEALS AND TOOK MEDS FINE. CALL LIGHT WITHIN REACH. WILL HANDOFF TO ONCOMING NURSE.
--- NOTE | 2021-10-02 05:25 | NUR ---
SHIFT SUMMARY - NO ACUTE CHANGES THROUGHOUT THIS SHIFT. PT SLEPT FOR APPX 6-7 HOURS TONIGHT. PT CONTINUES WITH CONFUSED CONVERSATION AT TIMES. ATTENDS IN PLACE. WINTER PUT OUT DARK YELLOW URINE WITH A STRONG SMELL. CALL LIGHT WITHIN REACH. BED IN LOW POSITION. FLUIDS AT BEDSIDE. PT IS EASILYT REDIRECTABLE
--- NOTE | 2021-10-02 15:53 | NUR ---
LOW BP PATIENT EVENING BP WITH VITAL SIGNS WERE NOTED TO BE 88/45 AND SOME SYMPTOMATIC SIGNS NOTED OF FATIQUE AND HEADACHE WITH DIZZINESS. PAGED DR OLIVAS AND NOTIFIED HER AND SHE STATED WOULD PLACE ORDER FOR 500CC NS BOLUS TO INFUSE. I DID NOTIFY HER THAT THIS NURSE HAS NOT GIVEN HER THE MORNING DOSE OF LISINIPRIL ANY DAY THIS WEEK R/T LOW BP WELL.
--- NOTE | 2021-10-02 18:39 | NUR ---
SHIFT SUMMARY PAIENT IS AAOX1. ALERT TO PERSON ONLY AND UNABLE TO BE REORIENTED TO PLACE OR TIME. SPEAKS IN UNRELATED CONVERSATIONS AND CAN NOT ANSWER QUESTION WITH APPROPRIATE RESPONSE. DID C/O PAIN IN AM AND WAS MEDICATED WITH TRAMADOL. HAS NO C/O SOB, N/V, OR DISCOMFORT VOICED. BP WAS LOW THIS PM AND RECEIVED ORDERS FOR BOLUS AND GAVE. NAD NOTED. WILL MONITO RIN CARE
--- NOTE | 2021-10-03 04:41 | NUR ---
PATIENT IS AWAE THIS AM BRUSHING LEI HAIR. CONVERSATION IS CONFUSED AND NONSENSICAL. WINTER DRAINING YELLOW URINE WITH SEDIMENT AND FOUL ODOR. PATIENT WAS TURNED ANND CHECKED Q2 HRS. VIATLS REVIEWED. CALL LIGHT IN REACH BED IN LOWEST POSITION BED ALARM SET.
--- NOTE | 2021-10-03 18:22 | NUR ---
PT SUMMARY: PT ALERT AND ORIENTED TO SELF, MOSTLY CONFUSED TALKS IN FULL SENTENCES BUT IS SOMETIMES NONSENSICAL VERY FORGETFUL, ATTEMPTED TO GET OUT ONCE BED ALARM ON FOR SAFETY. VITALS HAS BEEN STABLE. DENIES PAIN MILD DISCOMFORT WAS REPOSITIONED OFTEN ALSO TO PROMOTE WOUND HEALING. SACRAL ULCER DRESSING CHANGED, MALODOROUS DRAINAGE NOTED, WET TO DRY DRESSING APPLIED. PT WINTER DRAINING PATENT, YELLOW SLIGHTLY CLOUDY WITH SEDIMENTS. BM X1 FOR THE SHIFT. PO INTAKE WELL TOLERATED FOR THE SHIFT. POWERGLIDE DISCONTINUED ORDER FOR NO IV ACCESS PER PROVIDER. NO OTHER ISSUES REPORTED, MEPILEX ON BOTH HEELS FOR PROTECTION. CALL LIGHT IN REACH BUT PT MOSTLY YELLS OUT IF NEEDED HELP. REDIRECTABLE. BED IN LOWEST POSITION. WILL REPORT TO ONCOMING SHIFT
--- NOTE | 2021-10-04 04:27 | NUR ---
PATIENT HAS BEEN VERY COVERSATIONAL THIS SHIFT. SPEAKING IN SENTENCES THAT ARE NONSENSICAL MOST OF THE TIME. DSG CELINE COCCYX BECAME SOILED AND WAS CHANGED PATIENT IS A&O X1, SELF. WINTER DRAINING YELLOW URINE WITH SEDIMENT AND ODOR. VITALS REVIEWED. CALL LIGHT IN REACH BED IN LOWEST POSITION. WILL CONTINUE TO MONITOR UNTIL SHIFT CHANGE.
--- NOTE | 2021-10-04 16:38 | NUR ---
SHIFT SUMMARY PT WORKED WITH PHYSICAL THERAPY AND STOOD AT THE SIDE OF THE BED. BED BATH WAS COMPLETED TODAY. WOUND CARE & NEW PICTURE TAKEN THIS SHIFT. PT PLEASANTLY CONFUSED. CALL LIGHT & BED ALARM IN PLACE. NO OTHER ACUTE CHANGES IN ASSESSMENT AT THIS TIME.
--- NOTE | 2021-10-05 04:55 | NUR ---
PATIENT HAS HAD AN UNEVENTFUL NIGHT. TOOK AND TOLERATED PM MEDIATIOSN. WAS CHEECKED AND CHANGED Q2 HRS. WINTER PATENT DRAINING AT THE BEDSIDE. PATIENTS SPEECH IS APPROPRIATE IN SMALL PHRASES THEN WORD SALAD AT OTHER TIMES. VITALS REVIEWED CALL LIGHT IN REACH.
[2021-10-05 06:44] LABS: Hemoglobin 9.8 g/dL (11.5-16.0)
[2021-10-05 07:23] LABS: Albumin, Blood 1.7 g/dL (3.4-5.0); Anion Gap 6 mmol/L (6-16); Blood Urea Nitrogen 7 mg/dL (8-24); Bun/Creatinine Ratio 13.4 (12.0-20.0); CO2, Blood 25 mmol/L (21-32); Calcium, Blood 9.2 mg/dL (8.5-10.1); Chloride, Blood 113 mmol/L (98-108); Creatinine, Blood 0.52 mg/dL (0.40-1.00); Glomerular Filtration Rate >60 (60-); Glucose, Blood 95 mg/dL (70-99); Phosphorus, Blood 4.8 mg/dL (2.5-4.9); Sodium, Blood 144 mmol/L (136-145)
--- NOTE | 2021-10-05 16:13 | NUR ---
SHIFT SUMMARY PT IS AO. PT DENIES PAIN, N/V, SOB. PT WOUND CARE DONE THIS SHIFT. THIS RN CHANGED PT'S WINTER CATHETER PER PROTOCOL AFTER PREVIOUS WINTER HAD BEEN INSERTED OVER 30 DAYS. PT DID NOT HAVE VISITORS THIS SHIFT. PT APPETITE IS GOOD. PT PENDING PLACEMENT AND GUARDIANSHIP. PT IS IN BED, CALL LIGHT IN REACH, LOW POSITION.
--- NOTE | 2021-10-05 18:47 | NUR ---
Returned call to pt's son yesterday. I gave him an update on pt's status, and he was able to talk with patient. Reminded nursing staff to charge, turn on pt's phone for phone calls. Pt and her son talked for quite some time yesterday, and pt was giggling and smiling during the phone call and again afterward. Pt's son states he is thankful for the update. I also gave him pt's room number and hospital main number if he ever wants to try calling pt's room if she doesn't have her cell phone on.
--- NOTE | 2021-10-06 05:38 | NUR ---
PATIENT HAS HAD AN UNEBVENTFUL NIGHT. MOSST OF SPEECH IS STILL WORD SALAD, HOWEVER SHE DOES MAKES SOME STATEMENTS THAT ARE CLEAR. DRESSING CHANGE COMPLETED TO COCCYX. Q 2 HR TURNS AND CHECKS PERFORMED. PT HAS SEVARL SOFT STOOL. BOWEL CARE MEDS MAY NEED TO BE HELD. VITALS REVIEWED. CALL [facility] IN REACH.
--- NOTE | 2021-10-06 15:59 | NUR ---
SHIFT SUMMARY PT IS AO. PT DENIES PAIN, N/V, SOB. PT PENDING PLACEMENT AND GUARDIANSHIP. PT REPOSITIONED T/O SHIFT. WOUND CARE DONE THIS SHIFT. WINTER CATHETER IS PATENT AND DRAINING CLEAR YELLOW URINE. PT APPETITE IS GOOD. PT DID NOT HAVE VISITORS THIS SHIFT. PT REMAINS LIFT FOR TRANSFERS. PT IS IN BED, CALL LIGHT IN REACH, LOW POSITION.
--- NOTE | 2021-10-07 06:03 | NUR ---
PATIENT HAD AN UNVENTFUL SHIFT. A&O X1 SELF. SPEECH OS SOMETIMES UNDERSTANDABLE AND AT OTHER TIMES WORD SALAD. HAD TWO SOFT STOOLS. Q2 HR TURN AND CHECK PERFORMED. WINTER HANGING AT THE BEDSIDE DRAINING DARK YELLOW URINE. VITALS REVIEWED. CALL LIGHT IN REACH AND BED ALARM SET.
--- NOTE | 2021-10-07 17:58 | NUR ---
SHIFT SUMMARY; PATIENT VERY VERBAL DURING DAY SHIFT. HAS CONVERSATIONS WITH HERSELF DURING DAY. 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 SHE DOES NOT GET OUT OF BED IS JUST VERBAL. SHE IS ORIENTEED X 1 THROUGHOUT DAY. WOUND TO COXXYX IS CLEANED AND CALCIUM ALGANATE IS PLACED AND WOUND IS DRESSED WITH MEPELEX DRESSING. VITAL SIGNS ARE WITHING NORMAL LIMITS TODAY. SHE HAS A WINTER IN PLACE TO DOWN DRAIN. PPATIENT HAS TWO BOWEL MOVEMENTS AND IS NOTED TO HAVE SMEARS IN HER ATTENDS DURING Q2 HOUR TURNS SO BRIEFS ARE CHANGED AT THAT TIME ALSO. YUSUF IS ABLE TO FEED HERSELF AND DRINK FLUIDS WITHOUT ASSIST. SHE DOES NOT USE CALL LIGHT TO CALL FOR NEEDS. THIS RN SITS OUTSIDE OF [facility] ROOM TO BE AVAILABLE SHOULD PATIENT NEED ANYTHING. 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
[2021-10-08 16:06] LABS: BASOPHILS ABSOLUTE AUTO 0.06 K/mm3 (0.00-0.23); BASOPHILS PERCENT AUTO 1 % (0-2); EOSINOPHILS PERCENT AUTO 1 % (0-6); Hematocrit 30.5 % (33.0-51.0); Hemoglobin 9.8 g/dL (11.5-16.0); IMMATURE GRAN ABSOLUTE AUTO 0.03 K/mm3 (0.00-0.10); IMMATURE GRAN PERCENT AUTO 0 % (0-1); LYMPHOCYTES ABSOLUTE AUTO 2.59 K/mm3 (0.84-5.20); LYMPHOCYTES PERCENT AUTO 27 % (21-46); MONOCYTES ABSOLUTE AUTO 0.59 K/mm3 (0.16-1.47); MONOCYTES PERCENT AUTO 6 % (4-13); Mean Corpuscular HGB 30.2 pg (26.0-34.0); Mean Corpuscular HGB Conc 32.1 g/dL (31.5-36.5); Mean Corpuscular Volume 94 fL (80-100); Mean Platelet Volume 8.9 fL (9.1-12.4); NEUTROPHILS ABSOLUTE AUTO 6.26 K/mm3 (1.96-9.15); NEUTROPHILS PERCENT AUTO 65 % (41-73); Platelet Count 403 K/mm3 (150-400); RDW Coefficient Variation 13.9 % (11.7-14.2); RDW Standard Deviation 47.8 fL (35.1-46.3); Red Blood Cell Count 3.24 M/mm3 (3.80-5.20); White Blood Cell Count 9.63 K/mm3 (4.00-11.30)
[2021-10-08 16:43] LABS: Anion Gap 8 mmol/L (6-16); Blood Urea Nitrogen 14 mg/dL (8-24); Bun/Creatinine Ratio 23.9 (12.0-20.0); CO2, Blood 25 mmol/L (21-32); Calcium, Blood 9.2 mg/dL (8.5-10.1); Chloride, Blood 106 mmol/L (98-108); Creatinine, Blood 0.59 mg/dL (0.40-1.00); Glomerular Filtration Rate >60 (60-); Glucose, Blood 159 mg/dL (70-99); Potassium, Blood 3.5 mmol/L (3.5-5.5); Sodium, Blood 139 mmol/L (136-145)
--- NOTE | 2021-10-08 19:03 | NUR ---
SHIFT SUMMARY; PATIENT REMAINS CONFUSED THROUGHOUT SHIFT. AT ONE POINT TELLING THAT SHE FLIES AROUND ROOM INSTEAD OF WALKING TO SAVE HER FEET. PATIENT IS UP TO CHAIR FOR 1.5 HOURS TODAY AND TOLERATES WELL. WOUND DRESSSING AND PACKING IS CHANGED TO COCCYX AREA AND PATIENT TOLERATED WELL. NO SLUFF OR DISCHARGE NOTED. ONLY SCANT BLEEDING NOTED. NO SMELL OR REDNESS AROUND AREA. KRYSTAL CONTINUES TO TAKE HER MEDICATIONS WITHOUT DIFFICULTY. SHE WORKED WITH PT TODAY AND TOLERATED WELL. SHE EATS HER MEALS WITHOUT ASSIST AND IS ABLE TO MAKE HER NEEDS KNOWN. SHE DOES NOT USE A CALL LIGHT INSTAD WAITS FOR STAFF TO WALK BY AND THEN MOTIONS FOR THEM TO COME INTO ROOM. WILL REMAIN AVAILABLE FOR THIS PATIENT FOR ANY WANTS OR NEEDS UNTIL HAND OFF AT SHIFT CHANGE.
--- NOTE | 2021-10-09 15:07 | NUR ---
PT WAS TRANFERED TO NEW ROOM AND REPORT GIVEN PRIOR TO TRANSFER. PT AO2 AND COOPERATIVE OF CARE. PT SHOWS SOME CONFUSION, BUT CAN BE DIRECTED WELL. PT WAS ABLE TO HAVE A BED BATH PRIOR TO ROOM CHANGE.
--- NOTE | 2021-10-09 18:46 | NUR ---
SHIFT SUMMARY PT WAS TRANSFERRED FROM ANOTHER ROOM TODAY AND CAME AFTER LUNCH AND BATH. PT IS AWAKE AND ALERT BUT ORIENTED X1 ONLY. UNAWARE OF PLACE OR TIME AND UNABLE TO BE REDIRECTED, CONVERSATION IS ALL OVER THE PLACE AND MAKES NO SENSE. ASKS INAPPROPRIOATE QUESTIONS. DID C/O PAIN X 1 THIS PM AND MEDICATED WITH TRAMADOL AND STATED TO HAVE RELIEF. SAT IN CHAIR MOST OF THE DAY AND HAD MEALS HAS NO C/O SOB, N/V OR OTHER ISSUES VOICED. VSS. NOTED MORNING BP MEDS WERE HELD. NAD NOTED. WILL CONTINUE TO MONITOR IN CARE UNTIL NEW ONCOMING NURSE.
--- NOTE | 2021-10-10 04:29 | NUR ---
GLOBAL PRESIDENT SUMMARY PATIENT IS PENDING GUARDIANSHIP AND WILL BE PENDING PLACEMENT AFTER SHE IS APPROVED FOR MEDICAID. PT IS PLEASANT AND COOPERATIVE. SHE KNOWS SHE IS IN A MEDICAL FACILITY AND KNOWS HER DATE OF . PT HAS LARGE HEALING STAGE 4 ULCER TO THE COCCYX THAT WAS CLEANED AND REDRESSED. SHE ALSO HAS UNSTAGABLE WOUNDS TO BILATERAL HEALS WITH DRESSING C/D/I. PT WINTER DRAINING YELLOW URINE WITH SEDIMENT. SHE HAS BEEN USING HER WALKER BUT STILL MOVES QUICKLY. PT VERY COOPERATIVE WITH CARE AND PLEASANT TO STAFF.
--- NOTE | 2021-10-10 19:10 | NUR ---
SHIFT SUMMARY. PT IS AAOX1 ONLY. UNAWARE OF SURROUNDINGS. HAS TO BE REORIENTED TO PLACE AND TIME THROUGHOUT THE DAY. WORDS SOMETIMES DO NOT MAKE SENSE OR COMPLETE SENTENCES. DOES NOT ANSWER QUESTIONS APPRIOPATLEY. VSS NOW. HELD BP MEDS IN THE AM AND DID NOTIFY MD. HE CHANGED DOSES AND ADDED PARAMATERS. MEDICATED FOR PAIN X2 ON TODAY AND STATED RELIEF. NAD NOTED. UP TO CHAIR SINCE LUNCH. CALL LIGHT WITHIN REACH. WILL MONITOR IN CARE
--- NOTE | 2021-10-11 05:07 | NUR ---
TALENT ACQUISITION SPECIALIST SUMMARY PT AWAITING APPROVAL FOR MEDICAID. SHE KNOWS SHE IS IN A MEDICAL FACILITY AND KNOWS HER NAME AND DATE OF . PT COOPERATIVE WITH CARE AND FOLLOWING DIRECTIONS. SOME HALLUCINATIONS TONIGHT. SHE SLEPT THROUGHOUT THE NIGHT. BEGAN TO HAVE SOME LEAKING FROM HER WINTER SO WINTER WAS CLEANED AND ADVANCED. NO OTHER CONCERNS THIS SHIFT.
--- NOTE | 2021-10-11 19:51 | NUR ---
SHIFT SUMMARY PT AXO TO SELF AND YEAR, PLEASANTLY CONFUSED. NO ACUTE CHANGES THIS SHIFT. BED ALARM ON. DRESSINGS CHANGED AT START OF SHIFT, PHOTOS UPDATED IN CHART. PT DENIES PAIN, SOB AND NV. BED IN LOW POSITION, CALL LIGHT WITHIN REACH, BED ALARM ON. Q2 TURNS
--- NOTE | 2021-10-12 05:56 | NUR ---
SHIFT SUMMARY ASSUMED CARE AT 1900. NO ACUTE EVENTS OVERNIGHT. MEDICATED WITH PRN TRAMADOL ONCE FOR C/O PAIN TO SACRUM, WITH GOOD RESULTS. WINTER CATHETER, PATENT, DRAINED >900ML URINE VIA GRAVITY. DRESSING TO BILATERAL HEELS AND SACRUM REMAIN INTACT. VITAL SIGNS WERE STABLE. NO CHANGES IN MENTATION, REMAINS PLEASANTLY CONFUSED. BED IN LOW POSITION WITH THE CALL LIGHT WITHIN EASY REACH WITH BED ALARM ACTIVATED. WILL CONTINUE TO MONITOR.
--- NOTE | 2021-10-12 18:35 | NUR ---
SHIFT SUMMARY PT WORKED WITH P.T. TODAY AND WAS REPORTED PT WALKED FROM BED TO DOOR AND BACK USING A FWW. DRESSINGS CHANGED TO HEELS AND COCCYX. PT TOLERATED WELL. DRINKING ENSURES WITH NO PROBLEM WHEN NOT EATING FOOD.
--- NOTE | 2021-10-13 06:18 | NUR ---
SHIFT SUMMARY ASSUMED CARE AT 1900. NO ACUTE EVENTS OVERNIGHT. PT REMAINS PLEASANTLY CONFUSED WITH NONSENSICAL SPEECH AT TIMES. NO COMPLAINTS VOICED. WINTER CATHETER PATENT, DRAINING URINE VIA GRAVITY. DRESSING TO SACRUM AND BILATERAL HEELS C/D/I. HEELS OFFLOADED. PT TURNED AND REPOSITIONED. BED IN LOWEST POSITION WITH THE CALL LIGHT WITHIN EASY REACH; BED ALARM ACTIVATED. WILL CONTINUE TO MONITOR.
--- NOTE | 2021-10-13 18:24 | NUR ---
SHIFT SUMMARY: NO ACUTE EVENTS. DENIES PAIN. A&O X 1, PLEASANT, COOPERATIVE, CONFUSED. WINTER DRAINING ADEQUATE URINE. NAPPED INTERMITTENTLY DURING THE DAY.
--- NOTE | 2021-10-14 05:58 | NUR ---
SHIFT SUMMARY ASSUMED CARE AT 1900. NO ACUTE EVENTS OVERNIGHT. PT REMAINS CONFUSED AND PLEASANT. NO COMPLAINTS VOICED. WINTER CATHETER PATENT, DRAINING URINE VIA GRAVITY, >1000 ML URINE OUTPUT DURING SHIFT. DRESSINGS TO SACRUM AND BILATERAL HEELS INTACT. PT TURNED AND REPOSITIONED. BED IN LOW POSITION WITH THE CALL LIGHT WITHIN EASY REACH. BED ALARM ACTIVATED. WILL CONTTINUE TO MONITOR.
--- NOTE | 2021-10-14 18:48 | NUR ---
SHIFT SUMMARY: NO ACUTE EVENTS. REMAINS PLEASANTLY CONFUSED, VISUAL HALLUCNATIONS AT TIMES. DENIED PAIN. GOOD PO INTAKE AND UOP. WAS UP IN CHAIR FOR PART OF SHIFT, WALKED TO HALLWAY WITH PHYSICAL THERAPY. TRANSFERRED TO ROOM 356; REPORT GIVEN Bharath BLANK RN.
--- NOTE | 2021-10-14 19:14 | NUR ---
NEW TRANSFER ASSUMED CARE FOR THIS PATIENT AT 17:15 PM. SHE IS AAOX1 ONLY. PLEASANTLY CONFUSED. UNAWARE OF WHEREABOUTS AND SURROUNDINGS. MAKES STATEMENTS THAT MAKE NO SENSE. SITTING UP IN CHAIR WITH DRESSING D/I TO BOTTOM AND HELLS. VSS. NAD NOTED. NO C/O PAIN, SOB, N/V OR DISCPOMFORT VOICED. WILL HANDOFF TO ONCOMING SHIFT
--- NOTE | 2021-10-15 03:16 | NUR ---
SHIFT SUMMARY PATIENT HAD NO ACUTE CHANGES OBSERVED. AXOX 2 AND TWO ASSIST W/GAIT BELT TO BSC. NO IV ACCESS. WINTER PATENT AND DRAINING TO GRAVITY. DENIES PAIN, SOB, AND N/V. IN CHAIR AT SHIFT CHANGE AND BACK INTO BED A FEW HOURS LATER. ABLE TO SLEEP MOST OF THE SHIFT. CALL LIGHT IN REACH. BED IN LOWEST POSITION. WILL CONTINUE TO MONITOR UNTIL DAY SHIFT NURSE ASSUMES CARE.
--- NOTE | 2021-10-15 18:18 | NUR ---
SHIFT SUMMARY PT IS AAOX2 THIS PM AND HAS BEEN MOST OF THE DAY. HAS TO BE REORIENTED TO TIME AND REDIRECTED OFTEN WHEN SHE GETS CONFUSED. SHE SPEAKS OUT OF REALITY AND DRIFTS OFF OFTEN. SHE IS NOT IN TUNE WITH HER SURROUNDINGS. VSS. NAD NOTED. SHE DID HAVE C/O PAIN A FEW TIMES TODAY AND WAS MEDICATED WITH TRAMADOL X2 TODAY AND DID STATE RELIEF. HAS NO C/O SOB, N/V, OR OTHER DISCOMFORT. SITTING UP IN BED EATING DINNER AT THIS TIME AND CALL LIGHT WITHIN REACH. WILL CONTINUE TO MONITOR IN CARE UNTIL ONCOMING SHIFT TAKES OVER
--- NOTE | 2021-10-16 05:49 | NUR ---
SHIFT SUMMARY: PT IS A/OX1. SHE IS VERY SWEET, BUT HAS NONSENSICAL RESPONSES AND CONVERSATION. SHE DOES WELL TAKING MEDICATIONS PO WITH WATER. WINTER IS PATENT AND OFF THE FLOOR. SACRAL ULCER AND BILATERAL HEELS HAVE MEPILEX DRESSINGS THAT ARE CDI--W/ DAILY DRESSING CHANGES.
--- NOTE | 2021-10-16 18:38 | NUR ---
DAY SHIFT SUMMARY 75 YEAR OLD, CONFUSED, FOLLOWS DIRECTIONS. A/O X1. PT HAD SMALL BM TODAY. SACRAL ULCER DRESSING CHANGED. WINTER INTACT, PATENT, DRAINING BY GRAVITY. WAITING PLACEMENT WITH OSCAR. ON RA. CALL LIGHT WITHIN REACH, CALLS APPROPRIATELY. NO ACUTE CHANGES WITH PT THIS SHIFT.
--- NOTE | 2021-10-17 05:14 | NUR ---
SHIFT SUMMARY: PT IS A/OX1. SHE CONTIUES TO HAVE NONSENSICAL SPEECH, ALWAYS PLEASANT THOUGH. WINTER REMAINS PATENT. MEPILEX DRESSINGS ON HEELS WERE CHANGED 10/16 (NOC SHIFT) AND ARE CDI. BED IS IN LOWEST POSITION AND CALL LIGHT IS WITHIN REACH.
--- NOTE | 2021-10-17 16:47 | NUR ---
DAY SHIFT SUMMARY 75 YR OLD FEMALE, A/O TO SELF. CONFUSED WITH NONSENSICAL SPEECH. 2 PERSON ASSIST WITH GAIT BELT. HEEL WOUNDS DRESSED WITH MEPILEX. SACRAL ULCER DRESSED WITH MEPILEX. WAITING PLACEMENT. PT ON RA, MEDS TAKEN WHOLE WITH WATER. CALL LIGHT WITHIN REACH, ABLE TO CALL APPROPRIATELY. NO ACUTE CHANGES THIS SHIFT.
--- NOTE | 2021-10-18 05:10 | NUR ---
SHIFT SUMMARY: PT IS A/OX1, W/ NONSENSICAL CONVERSATION. DRESSING TO SACRUM AND HEELS HAVE BEEN CLEANSED/CHANGED AND ARE CDI. CALL LIGHT IS WITHIN REACH AND WE'LL CONTINUE TO MONITOR.
--- NOTE | 2021-10-18 18:08 | NUR ---
SHIFT SUMMARY PT IS PLEASANTLY CONFUSED TODAY. THERE WAS CONCERN ABOUT HER MAKING FINANCIAL DCISIONS [facility]. APPARENTLY HER LANDLORD CAME IN TO TAKE A CHECK SIGNED TO HIM TO HELP PAY FOR PROPERTY FEES OWED. I WAS NOT ABLE TO SPEAK TO THE MAN AND BOTH THE PHYSICIAN RELATIONS MANAGER AND PATIENT ADVOCATE WERE OUT OF THE OFFICES BY THEN, i AM HOPING TO HAVE THE ISSUE INVESTIGATED MORE THROUGHLY TOMORROW, BUT WILL MAKE JET HANDLER AWARE. CHARGE NURSE IS AWARE. WILL CONTINUE TO MONITOR.
[2021-10-19 04:49] LABS: Hematocrit 30.4 % (33.0-51.0); Hemoglobin 9.8 g/dL (11.5-16.0); Mean Corpuscular HGB 29.7 pg (26.0-34.0); Mean Corpuscular HGB Conc 32.2 g/dL (31.5-36.5); Mean Corpuscular Volume 92 fL (80-100); Mean Platelet Volume 8.8 fL (9.1-12.4); Platelet Count 425 K/mm3 (150-400); RDW Coefficient Variation 14.3 % (11.7-14.2); RDW Standard Deviation 48.3 fL (35.1-46.3); White Blood Cell Count 7.61 K/mm3 (4.00-11.30)
[2021-10-19 05:29] LABS: Albumin, Blood 2.2 g/dL (3.4-5.0); Anion Gap 8 mmol/L (6-16); Blood Urea Nitrogen 13 mg/dL (8-24); Bun/Creatinine Ratio 26.9 (12.0-20.0); CO2, Blood 24 mmol/L (21-32); Chloride, Blood 112 mmol/L (98-108); Creatinine, Blood 0.48 mg/dL (0.40-1.00); Glomerular Filtration Rate >60 (60-); Glucose, Blood 98 mg/dL (70-99); Potassium, Blood 4.2 mmol/L (3.5-5.5); Sodium, Blood 144 mmol/L (136-145)
--- NOTE | 2021-10-19 18:53 | NUR ---
SHIFT SUMMARY NO ACUTE CHANGES ON MY SHIFT. PT HAS ONE INSTANCE OF HYPOTENSION 86/50, BUT AFTER SOME ORAL FLUIDS AND A BLANKET SHE RETURNED TO HER NORMAL RANGE. CONTINUEING TO WORK ON GETTING PT TO USE BEDSIDE COMODE FOR BOWEL MOVEMENT. WILL CONTINUE TO MONITOR.
--- NOTE | 2021-10-20 05:16 | NUR ---
SHIFT SUMMARY AOX3. NONSENSICAL OFF TOPIC RESPONSES @TIMES. VSS. WINTER PATENT & DRAINING CLOUDY YELLOW URINE c SEDIMENT. REPORTS 03/11 L LEG & BILAT SHOULDER PAIN, MEDICATED 1X c ULTRAM. INCONT OF BM THIS SHIFT. DRESSING ON COCCYX WOUND C/D/I. BILAT HEEL DRESSINGS CHANGED THIS SHIFT. AWAITING PLACEMENT & GAURDIANSHIP. CALL LIGHT IN REACH.
--- NOTE | 2021-10-20 18:07 | NUR ---
SHIFT SUMMARY PT IS STILL CONFUSED TODAY. SHE HAS BEEN UP IN HER CHAIR FOR LUNCH AND DINNER AND HAS TROUBLE COMMUNICATING HER NEEDS TO STAFF WHICH IS FRUSTRATING FOR HER. SHE BECAME VERY AGITATED THIS EVENING. SHE ALSO TOLD DAY SHIFT NURSE THAT SHE WAS TIRED OF HAVING LOOSE STOOL AND THINKS SHE WANTS TO CHANGE "HER CLEANSE" AFTER SOME INVESTIGATING IT SEEMS THAT AT HOME THE PATIENT IS NOT NORMALLY A VEGETARIAN AND WHEN SHE WAS ADMITTED TO THE HOSPITAL AFTER A WHILE SHE DECIDE THAT VEGETABLES MIGHT BE A CLEANSE FOR HER. SHE IS UNHAPPY WITH THE RESULT OF ALL THE FIBER AND HAS ASKED FR MEAT AGAIN AND THE CHANGES WERE MADE TO HER TRYA. WILL CONTINUE TO MONITOR
--- NOTE | 2021-10-21 04:30 | NUR ---
SALESPERSON WIGS SUMMARY PATIENT HAD A FAIR SHIFT. SHE IS STILL VERY PLEASANTY CONFUSED. SHE IS COOPERATIVE. HER V/S CHECKED WERE STABLE. SHE DID NOT LODGE ANY COMPLAINTS OVERNIGHT. WILL CONTINUE TO MONITOR HER.
--- NOTE | 2021-10-21 09:53 | NUR ---
Assisted OOB to bedside commode, had large browm soft formed BM. Then assisted to sit in the recliner chair. She did oral care herself.
--- NOTE | 2021-10-21 15:11 | NUR ---
Pt is sitting in chair, states she is having some lower back pain. Her back was given support with two pillows and also the chair was reclined to her stated satisfaction. Vital signs taken, noted stable.
--- NOTE | 2021-10-22 02:18 | NUR ---
SYSTEMS ANALYST DEVELOPER SUMMARY PATIENT HAD A FAIR SHIFT. HER V/S ARE STABLE AT THIS TIME. SHE DID STATED SHE IS HAVING A HEADACHE, NO CHEST PAIN OR SOB. NO OTHER COMPLAINT LODGED. WILL CONTINUE TO MONITOR HER.
--- NOTE | 2021-10-22 17:33 | NUR ---
DAY SHIFT SUMMARY 75 YR OLD PT, CONFUSED, ORIENTED TO SELF AND SOMETIMES PLACE. DECUBITUS ULCER TO SACRUM DRESSED WITH MEPILEX, HEEL ULCERS ALSO DRESSED WITH MEPILEX. PT WAITING PLACEMENT WITH OSCAR. ON RA WITHOUT ISSUE. DENIES SOB. NO C/O PAIN THIS SHIFT. CALL LIGHT WITHIN REACH. NO ACUTE CHANGES THIS SHIFT.
--- NOTE | 2021-10-23 04:13 | NUR ---
CLEANING TEAM MEMBER SUMMARY PATIENT HAD A FAIR SHIFT. HER VITALS WERE STABLE. HE HAD HER PAIN MED SHE SAID HER LOWER BACK WAS HURTING AND THAT SHE WAS STARTING TO HAVE A HEADACHE. NO OTHER COMPLAINTS OVERNIGHT. WILL CONTINUE TO MONITOR HER. SHE IS VERY PLEASANT.
--- NOTE | 2021-10-23 17:01 | NUR ---
NO ACUTE CHANGES PT AOX3 WITH SOME CONFUSION. PT IS ABLE TO MAKE HER NEEDS KNOWN AND IS TURNED Q2 HRS. PT HAD HER COCCYX DRESSING AND BOTH HEEL DRESSINGS CHANGED TODAY AND TOLERATED WELL. ALL WOUNDS WERE CLEANED AND REBANDAGED. WOUND TO COCCYX LOOKS GOOD ALL EDGES PINK AND COMPARING TO PREVIOUS PICTURES WOUND IS SLOWLY IMPROVING. R HEEL NOW HAS VERY SMALL BRUISED AREA AND PT'S L HEEL WOUND IS CLEAN AND IMPROVED WELL. PT HAS BED ALARM IN PLACE AND CALL LIGHT WITHIN REACH WILL CONTINUE TO MONITOR.
[2021-10-24 05:00] LABS: Hematocrit 32.2 % (33.0-51.0); Mean Corpuscular HGB 29.5 pg (26.0-34.0); Mean Corpuscular HGB Conc 31.1 g/dL (31.5-36.5); Mean Corpuscular Volume 95 fL (80-100); Mean Platelet Volume 9.1 fL (9.1-12.4); Platelet Count 353 K/mm3 (150-400); RDW Coefficient Variation 14.6 % (11.7-14.2); RDW Standard Deviation 50.5 fL (35.1-46.3); Red Blood Cell Count 3.39 M/mm3 (3.80-5.20); White Blood Cell Count 5.93 K/mm3 (4.00-11.30)
--- NOTE | 2021-10-24 05:12 | NUR ---
pt is alert and oriented x4, but forgetful. complains of minimal generalized pain. administered tylenol and patients states effectiveness. no signs of SOB or respiratory distress. call light within reach. bed in lowest position. dressing on coccyx is clean, dry and intact.
[2021-10-24 05:36] LABS: Albumin, Blood 2.2 g/dL (3.4-5.0); Anion Gap 10 mmol/L (6-16); Blood Urea Nitrogen 12 mg/dL (8-24); Bun/Creatinine Ratio 23.9 (12.0-20.0); CO2, Blood 21 mmol/L (21-32); Chloride, Blood 114 mmol/L (98-108); Glomerular Filtration Rate >60 (60-); Glucose, Blood 95 mg/dL (70-99); Phosphorus, Blood 4.2 mg/dL (2.5-4.9); Potassium, Blood 3.6 mmol/L (3.5-5.5); Sodium, Blood 145 mmol/L (136-145)
--- NOTE | 2021-10-24 17:31 | NUR ---
NO ACUTE CHANGES PT AOX3 AND COOPERATIVE OF CARE. PT REFUSED TO GET UP IN CHAIR TODAY AND INSISTED ON STAYING IN BED. PT HELPS TO ROLL AND DID WELL WITH HER COCCYX BANDAGE CHANGE AND HEEL BANDAGE CHANGE. WOUNDS HEALING AND LOOK GOOD PINK HEALING SKIN ON COCCYX. PT CAN CALL WITH CALL LIGHT WHEN NEEDED. PT IS INCONTENT OF URINE. NO DISTRESS NOTED AND CALL LIGHT WITHIN REACH. WILL CONTINUE TO MONITOR.
--- NOTE | 2021-10-25 01:29 | NUR ---
pt alert and oriented x4 but forgetful. did not get to assess gait. pt is able to turn with assist. complains of minimal pain on her back, given tylenol per EMAR orders. pt is resting. bed in lowest position. call light within reach.
--- NOTE | 2021-10-25 16:52 | NUR ---
NO ACUTE CHANGES TODAY. PT AOX2 AND COOPERATIVE OF CARE. STUDENT NURSE LOOKED OVER MOST CARE FOR PT TODAY. PT HAD HER COCCYX AND BOTH HEEL BANDAGES CHANGED AND TOLERATED WELL AFTER HER SHOWER TODAY. PT ALSO WAS UP IN CHAIR TODAY AND WALKED AROUND WITH PHYSICAL THERAPY DOING WELL. PT DID HOWEVER HAVE A LOWER BP THIS AFTERNOON PRIOR TO WORKING WITH PHYSICAL THERAPY OF BP101/60 P72. BP INCREASED AFTER WALKING AROUND PT WAS NOT SYMTOMIC. PT HAD REVIEVED ALL BP MEDS THIS AM PRIOR TWO DAYS LISINOPRIL WAS HELD. PT HAS CALL LIGHT WITHIN REACH AND WILL CONTINUE TO MONITOR.
--- NOTE | 2021-10-26 04:57 | NUR ---
pt is alert and oriented x 3 and forgetfull/ pt os Pt alert and orieted x4 but is forgetful. complains of minimal generalied pain. repositioned patient and given pain medication. q2 turns implemented. pt is now sleeping, no signs of distress. call light within reach.
--- NOTE | 2021-10-26 17:07 | NUR ---
SHIFT SUMMARY PT UP TO BATHROOM WITH 1 PERSON ASSIST USING FWW. HAS BEEN CONTINENT SINCE AFTER LUNCH. DRESSING CHANGED TO COCCYX WITH YELLOW DISCHARGE TO OLD DRESSING. PACKED WITH 1/2 PACKAGE OF CALCIUM ALGINATE. ROLLING IN BED APPROPRIATELY. AMBULATED IN HALLWAY USING FWW WITH STAFF THIS AFTERNOON. DRESSINGS INTACT TO BL HEELS.
--- NOTE | 2021-10-27 04:37 | NUR ---
SHIFT SUMMARY PT HAD AN UNEVENTFUL NIGHT. SLEPT WELL THIS EVENING. AMBULATED WELL TO THE RESTROOM WITH JUST A SBA AND A FWW. CONTINENT THIS EVENING. DRESSING TO LEFT HEEL WITH SOME SATURATION SO WAS REPLACED. DRESSINGS TO RIGHT HEEL AND COCCYX REMAINED CLEAN, DRY, AND INTACT. PT DENIED PAIN. VITAL SIGNS STABLE. PT AWAITING PLACEMENT. NO ACUTE CHANGES.
--- NOTE | 2021-10-27 16:50 | NUR ---
SHIFT SUMMARY PT AMBULATING IN HALLWAY WITH FWW WITH 1 PERSON ASSIST. HAS BEEN CONTINENT OF URINE AND STOOL TODAY. DRESSING CHANGED TO COCCYX. MEDICATED FOR PAIN WITH EFFECT. ON OTHER REPORTS TODAY
--- NOTE | 2021-10-28 06:03 | NUR ---
SHIFT SUMMARY PT RESTED WELL THROUGH THE NIGHT. ALERT AND ORIENTED, ABLE TO MAKE NEEDS KNOWN. COOPERATIVE WITH PLAN OF CARE. SATS >95% ON ROOM AIR. NO TELE, NO CHEST PAIN. VOIDING TO TOILET WITH FWW STAND BY ASSIST. NO PAIN. CONFUSED AT TIMES, BED ALARM ON. MEPILEX ON SACRUM, C/D/I. VSS. NO PAIN. CALL LIGHT WITHIN REACH, BED IN LOWEST POSITION. WILL CONTINUE TO MONITOR.
--- NOTE | 2021-10-28 18:36 | NUR ---
SHIFT SUMMARY PT WORKED WITH P.T. TODAY AND IS ALLOWED TO AMBULATED INDEPENDENTLY IN ROOM. DRESSINGS CHANGED TO HEELS AND COCCYX AFTER SHOWER. WALKED IN HALLWAY WITH 1 PERSON ASSIST USING FWW AND WALKED THE ENTIRE UNIT.
--- NOTE | 2021-10-29 04:56 | NUR ---
SHIFT SUMMARY PT IS A 76 Y/O FEMALE, ADMITTED FOR ACUTE RENAL FAILURE. SHE IS A&O X 2, FORGETFUL AT TIMES. INDEPENDENT IN THE ROOM. VITAL SIGNS STABLE. PT WAS MEDICATED ONCE FOR PAIN WITH PRN TYLENOL. NO C/O ACUTE NAUSEA OR SOB. NO ACUTE CHANGES IN PT CONDITION NOTED DURING THE NIGHT. WILL CONTINUE TO MONITOR AND TREAT PER EMAR UNTIL HAND OFF TO DAY SHIFT RN.
--- NOTE | 2021-10-29 17:14 | NUR ---
SHIFT SUMMARY PATIENT IS ALERT AND ORIENTED X2 THIS SHIFT. PATIENT IS PLEASANTLY CONFUSED. PATIENT IS INDEPENDENT TO THE BATHROOM WITH FWW. PATIENT IS ON RA. NO TELE. NO IV ACCESS. PATIENT HAS HEALING WOUNDS TO HEAL AND COCCYX. VSS. NO ACUTE CHANGES THIS SHIFT. CURRENTLY WAITING ON PLACEMENT.THIS NURSE WILL CONTINUE TO CARE FOR THE PATIENT UNTIL SHIFT REPORT IS GIVEN TO ONCOMING NURSE.
--- NOTE | 2021-10-30 17:42 | NUR ---
SHIFT SUMMARY THE PT IS ALERT AND ORIENTED X2, PLEASANT AND COOPERATIVE WITH CARE. PATIENT WAS UP AND OUT OF ROOM TODAY TO WALK ABOUT THE HEADLEY. THE PATIENT HAS BEEN IN GREAT SPIRITS THIS SHIFT. WOUND CARE WAS DONE THIS SHIFT. MEPILIX ON COCCYX AND HEALS WERE CHANGED. NO ACUTE CHANGES. VSS. CALL LIGHT WITHIN REACH.
--- NOTE | 2021-10-31 06:44 | NUR ---
SHIFT SUMMARY PT IS A 75 Y/O FEMALE, ADMITTED FOR ACUTE RENAL FAILURE AND CURRENTLY AWAITING PLACEMENT. SHE IS A&O X 2, FORGETFUL AT TIMES, INDEPENDENT TO THE BATHROOM. VITAL SIGNS STABLE. NO C/O ACUTE PAIN, NAUSEA OR SOB. NO ACUTE CHANGES IN PT CONDITION NOTED DURING THE NIGHT. WILL CONTINUE TO MONITOR AND TREAT PER EMAR UNTIL HAND OFF TO DAY SHIFT RN.
--- NOTE | 2021-10-31 16:15 | NUR ---
SHIFT SUMMARY PATIENT IS ALERT AND ORIENTED X2, PLEASANT AND COOPERATIVE WITH CARE. PT HAD A SHOWER TODAY. PT IS CURRENTLY UP WALKING DOWN THE HEADLEY WITH THE ABDULLAHI RICHARDSON. NO ACUTE CHANGES THIS SHIFT. VSS. THIS NURSE WILL CONTINUE TO CARE FOR THE PATIENT UNTIL SHIFT REPORT IS GIVEN TO THE ONCOMING NURSE.
--- NOTE | 2021-11-01 07:26 | NUR ---
SHIFT SUMMARY PT IS A 75 Y/O FEMALE, ADMITTED FOR ACUTE RENAL FAILURE. SHE IS A&O X 2-3, MILDLY FORGETFUL AT TIMES. INDEPENDENT IN THE ROOM. VITAL SIGNS STABLE. PT MEDICATED ONCE FOR BACK PAIN WITH PRN TYLENOL. NO C/O ACUTE NAUSEA OR SOB. NO ACUTE CHANGES IN PT CONDITION NOTED DURING THE NIGHT. REPORT GIVEN TO ONCOMING RN.
--- NOTE | 2021-11-02 05:03 | NUR ---
SHIFT SUMMARY NO ACUTE CHANGES OVERNIGHT. PT AOX4. SACRAL MEPLEX CHANGED LAST NIGHT WITH MILD DRAINAGE. BILATERAL HEEL MEPLEX WERE ALSO CHANGED. AMBULATES IND IN ROOM. VOIDING WITHOUT ANY ISSUES. VSS. PT DENIES CHEST PAIN AND SOB. CALL LIGHT WIHTIN REACH. WILL PROVIDE REPORT TO ONCOMING NURSE. PLAN: WAITING FOR PLACEMENT AND GUARDIANSHIP.
--- NOTE | 2021-11-02 14:44 | NUR ---
SHIFT SUMMARY PT IS A&O, PLEASANT AND CO-OP. MEDICALLY STABLE WAITING FOR PLACEMENT AND GUARDIANSHIP. UP INDEPENDENTLY TO BTHRM USING FWW. DRSG'S TO HEELS AND COCCYX CHANGED ON NOC SHIFT; REMAIN C/D/I TO PRESENT. PER REPORT, R HEEL DRSG PREVENTATIVE ONLY. NO C/O PAIN. DENIES FURTHER NEEDS AT THIS TIME. CALL LT IN REACH.
--- NOTE | 2021-11-03 05:40 | NUR ---
CAFETERIA MONITOR SUMMARY PT IS AWAITING PLACEMENT SECONDARY TO GUARDIANSHIP. THE PATIENT IS A FULL CODE. SHE IS ALERT AND ORIENTED X3. VERY PLEASANT. SOMETIMES HALLUCINATES AND EXPANDS ON HER STORIES. SHE HAS BEEN SLEEPING THROUGHOUT THE NIGHT. SHE IS INDEPENDENT TO THE RESTROOM. NO OTHER CONCERNS THIS SHIFT.
--- NOTE | 2021-11-03 18:47 | NUR ---
SHIFT SUMMARY NO ACUTE CHANGES WITH PT THIS SHIFT. SHE HAS BEEN UP IN THE HALLS WALKING ROUND, MEPELEX DRESSING ON SACCRUM WOUND CHANGED. PT DENIES PAIN. WILL CONTINUE TO MONITOR
--- NOTE | 2021-11-04 04:59 | NUR ---
NO CHANGES OVERNIGHT FOR INGRID. NO COMPLAINTS OF PAIN OR DISCOMFORT. ONE EPISODE OF URGE INCONTINENCE GETTING TO THE BATHROOM. PATIENT CLEANED UP AND CHANGED HER PULL UPS INDEPENDENTLY BEFORE GETTING BACK INTO BED. NO CHANGES IN OVERALL MENTATION. VERY TANGENTIAL, AND DIFFICULT TO STEER OFF A SUBJECT WHEN SHE GETS STARTED. PLEASANT AND COOPERATIVE TO WORK WITH THOUGH
--- NOTE | 2021-11-04 17:48 | NUR ---
SHIFT SUMMARY NO ACUTE CHANGES THIS SHIFT. PT SACCRUM DRESSING HAS BEEN CHNGES AGAIN WITH SOME YELLOW DRAINAGE. WILL CONTINUE TO MONITOR.
--- NOTE | 2021-11-05 04:36 | NUR ---
NO CHANGES OVERNIGHT FOR INGRID. ONCE HER HS MEDS WERE GIVEN, SHE WAS CONTENT TO WATCH TV AND SLEEP INTERMITTANTLY. NOT VERY BOISTEROUS WITH HER IDEAS LAST NIGHT. PRETTY QUIET. STATED SHE WAS OK AND VERY COMFORTABLE
--- NOTE | 2021-11-05 17:53 | NUR ---
SHIFT SUMMARY NO ACUTE CHANGES THIS SHIFT. MEPELEX WAS CHANGED THIS AM AND MORE GREENISH YELLOW DISCHARGE WAS ON THE PAD. DR IS AWARE AND WANTS IT MONITORED FOR INFECTION AND KEPT CLEAN AND DRY THE NEXT FEW DAYS. PT HAS CONTINUED TO MAKE DAILY WALKS AROUND THE HALLS FOR EXCERCISE. WILL CONTINUE TO MONITOR
--- NOTE | 2021-11-06 04:21 | NUR ---
SHIFT SUMMARY ADMITTED FOR ARF. FULL CODE. SHE WAS LIVING ALONE AND WAS FOUND DOWN. PLAN IS FOR PLACEMENT/GUARDIANSHIP. SHE IS INDEPENDENT W/FWW. SHE HAS A SACRAL & A HEEL ULCER THAT ARE BANDAGED W/MEPILEX. SHE IS ON ELIQUIS. SHE IS PLEASANT AND COOPERATIVE W/CARE. HX: COVID+, UTI/SEPSIS, NSTEMI, ATRIAL THROMBUS.
--- NOTE | 2021-11-06 18:55 | NUR ---
END OF SHIFT SUMMARY: PATIENT REPORTED MILD PAIN IN TAIL BONE TODAY. MEDICATED PER PRNS AND EDUCATED ON REPOSITIONING OFF OF COCCYX. PATIENT DEMONSTRATED AND PRACTICED SELF REPOSITIONING THROUGHOUT THE DAY. PATIENT INDEPENDENT WITH THE FWW TO THE BATHROOM. PATIENT STEADY ON FEET AND USES FWW APPROPRIATELY. PATIENT USES CALL LIGHT APPROPRIATELY. PATIENT AMBULATED WITH THE PIG MACHINE OPERATOR HELPER IN THE HALLWAY. PATIENT CALM AND COOPERATIVE THROUGHOUT THE SHIFT. PATIENT ABLE TO TELL THE NURSE WHERE SHE IS, THE MONTH AND REASON FOR ADMISSION. PATIENT IS ABLE TO SOMEWHAT DISCUSS THE CARE SHE HAS RECEIVED AND THE RECOMMENDATIONS THAT HAVE BEEN MADE (FOR EXAMPLE: SHE COULD DISCUSS THE WOUND ON THE BACK OF HER LEFT ANKLE, BUT ALSO REFERRED TO THE WOUND ON THE BACK OF HER RIGHT ANKLE, WHERE THERE IS NO WOUND CURRENTLY PRESENT). HOWEVER, PATIENT WILL HAVE NONSENSICAL CONVERSATIONS WITH STAFF. AT TIMES IT IS UNCLEAR IF THE PATIENT IS HAVING MILD VISUAL HALLUCINATIONS DUE TO THE VAGUE NATURE OF HER DESCRIPTIONS (EX: "THAT RED ONE BACK THERE" WHILE WAVING HER ARM TOWARDS THE BACK OF THE BED).
--- NOTE | 2021-11-07 04:19 | NUR ---
SHIFT SUMMARY: PLEASANTLY CONFUSED. LIKES TO TELL STORIES. MOBILITIY IS IMPROVING PER PT. COCCYX AND HEEL WOUNDS ARE HEALING. DRESSINGS CDI. ON RA. NO COMPLAINTS. PT RESTED WELL. NO ACUTE CHANGES. PT WAITING FOR PLACEMENT AND GUARDIANSHIP. WILL CONTINUE TO PROVIDE CARE UNTIL SHIFT REPORT.
--- NOTE | 2021-11-07 17:11 | NUR ---
SHIFT SUMMARY PT AXO, PLEASANT AND COOPERATIVE WITH CARE THOUGH SOMETIMES MAKES NONSENSICAL STATEMENTS. VSS. LISINOPRIL HELD THIS AM PER PARAMETERS, SEE EMAR. NO ACUTE CHANGES THIS SHIFT. DRESSINGS TO SACRAL AND LLE CHANGED THIS SHIFT. CDI AT THIS TIME. PT MEDICATED FOR PAIN X1 THIS SHIFT. PATIENT AMBULATED THE UNIT X2 WITH THIS NURSE THIS SHIFT. BED IN LOW POSITION, CALL LIGHT WITHIN REACH. PT REFUSED SHOWER THIS SHIFT DESPITE BEING OFFERED MULTIPLE TIMES THROUGHOUT THE DAY. PT DID AGREE TO SHAMPOO CAP.
--- NOTE | 2021-11-08 04:32 | NUR ---
SHIFT SUMMARY: PATIENT REPORTED HEADACHE AND REQUESTED TYLENOL. MED WAS GIVEN WITH GOOD EFFECT. LUCINA AND Jasmin WEBSTER'S ARE CD&I. VSS, NO SOB.
--- NOTE | 2021-11-08 19:18 | NUR ---
SHIFT SUMMARY A/O X4 BUT HAS WILD STORIES/FLIGHTS OF IDEAS, DRESSING CHANGED TO COCCYX AND L HEEL, WOUNDS CLEANED BEFORE PLACING NEW DRESSING, NO ACUTE EVENTS THIS SHIFT, CALL LIGHT IN REACH, REPORT GIVEN TO PAWEL POLANCO.
--- NOTE | 2021-11-09 18:28 | NUR ---
SHIFT SUMMARY; COCCYX WOUND CLEANED AND DRESSED BID PER ORDER TODAY. PATIENT TOLERATES WELL. HEEL WOUND ON LEFT HEEL CLEANED AND DRESSED IN AM TODAY. PATIENT REMAINS CONFUSED THROUGHOUT THE DAY. WANTING TO GO HOME AND CHECK ON HER HOUSE AND PROMISING TO COME BACK LATER. ATTEMPTS TO SPEAK WITH PATIENT ABOUT THIS ARE MET WITH RESISTANCE. DECISION TO LET PATIENT MAKE A LIST OF WHAT SHE NEEDS TO SPEAK TO SOMEONE FROM [facility] AND WILL HAVE ENVIRONMENTAL HEALTH SAFETY ENGINEER COME TO SPEAK WITH PATIENT AND ADDRESS HER CONCERNS.
--- NOTE | 2021-11-10 04:58 | NUR ---
FOOD AND BEVERAGE SERVICE MANAGER SUMMARY PATIENT HAD A FAIR SHIFT. HAD A PAIN MED AT THE BEGINING OF THE SHIFT. HER SACRAL AND HEEL DECUBITUS ULCER WAS CLEANED AND DRESSED ORDERED. HER V/S WERE STABLE. WILL CONTINUE TO MONITOR HER.
--- NOTE | 2021-11-10 17:53 | NUR ---
[facility]AFF ENTERED THE ROOM TO BRING PT HER DINNER TRAY. PT WAS HYPERVENTILATING AND SEEMED TO BE IN SOME DISTRESS. PT SAID SHE WAS DOING SOME EXERCISES AND HAD A SUDDEN ONSET OF MIDSTERNAL CHEST PAIN "LIKE SOMEONE HAD A NAIL AND WAS PUSHING IT IN" PT WAS COACHED THROUGH SOME BREATHING EXERCISES, FULL VITALS TAKEN, HEART SOUNDS SOUND SINUS WITH NO IRREGULAR BEATS HEARD. CALLED DR BRENNAN HE IS AWARE OF THE SITUATION SINCE THE SYMPTOMS HAVE SINCE RESOLVED ORDER RECIEVED TO CONTINUE TO MONITOR THE PT AT THIS TIME NO NEW ORDERS.
--- NOTE | 2021-11-10 18:47 | NUR ---
SHIFT SUMMARY- PT HAD A C/O CP THIS EVENING (SEE PREVIOUS NOTE FOR DETAILS). NO OTHER ACUTE ISSUES T/O THE SHIFT, DRESSING CHANGES COMPLETED ON PT FOOT AND COCCYX. PT MEDICATED FOR PAIN ONCE. PT CURRENTLY SITTING UP IN BED CALL LIGHT IN REACH NO S&S OF DISTRESS NOTED, WILL CTM UNTIL SHIFT CHANGE.
--- NOTE | 2021-11-11 04:05 | NUR ---
STONE ROUGHER SUMMARY PATIENT HAD A FAIR SHIFT. SHE DID NOT LODGE ANY CONCERN OVERNIGHT. HER V/S ARE STABLE. DRESSING DONE ON THE SACRAL AND HEELS PER ORDER. WILL CONTINUE TO MONITOR HER.
--- NOTE | 2021-11-11 11:53 | NUR ---
Up Steven Howard was given a up in a sealed envelope. Ms Wiggins requested that we give him the up that she said is the up to her home. She said Mr Howard is the property developer for the [place] where she lives, and that she asked him to check on her RV to see why her electric bill is so high, ie is there heating left running. Ms Wiggins was very clear about her story and did not seem at all confused in this request. Tara and I walked the up down to Mr Howard at the hospital entrance and his story was about identical to what Ms Shah had said, so we gave him the up.
--- NOTE | 2021-11-11 18:07 | NUR ---
Ms Wiggins did well today; she denied any pain throughout this shift. She showered, ambulated around the halls twice with standby assist/walker/gait belt and was steady. She tolerated dressing change to sacral and heel wound well. She used her call light before going to the bathroom. She has some non flowing story telling conversations, but is orientated when asked specific questions.
--- NOTE | 2021-11-12 05:31 | NUR ---
FACULTY RESEARCH PHYSICIAN SUMMARY PATIENT HAD A FAIR SHIFT. SHE HAD TYLENOL FOR PAIN. HER V/S REMAINED STABLE. SHE DID NOT LODGE ANY COMPLAINTS OVERNIGHT. HER SACRALA ND HEEL PRESSURE ULCER WAS CLEANED AND DRESSED THIS MORNING. WILL CONTINUE TO MONITOR HER.
--- NOTE | 2021-11-12 08:53 | NUR ---
Patient asked me to turn up the heat. I did that wrong. Patient said, i need the bathroom. Okay. No gait belt please. Can I wash my hands. I said yes. Paper towel despenser is broken, dont try fixing it yourself she said. I'll call to have it fixed i said. Don't try fixing it she said again. She made it to the bed, then walked back to the bathroom to crack the door. I brought in her tray. Outside of her room I overheard, her saying. The health club manager is not happy.
--- NOTE | 2021-11-12 14:48 | NUR ---
Nursing note - Ms Wiggins is A&O to self, place and date. She does has a flight of ideas, and sometimes answers questions unrelated to the question asked. No SOB on room air, lung sounds clear, bowel sounds active. She has been using the call light appropriately, she has called before going to the bathroom, has stand by assist, but has been steady with the walker. Walked in halls with standby assist/ gait belt and walker. Dressings in place to sacrum and left heel. She c/o 5/10 lower back discomfort - tylenol effective to bring pain level to an acceptable level. BP somewhat elevated this morning, improvement noticed by lunch (on oral antihypertensives). Tolerating meal trays and ensure well.
--- NOTE | 2021-11-12 15:08 | NUR ---
pt up and walking fung with fww and gaite belt. no assistance needed. walked full loop around floor. did not apppear winded at end. states feels did well.
--- NOTE | 2021-11-12 16:05 | NUR ---
Wound dressing- Sacral wound dressing changed. I noticed more yellow drainage on the old dressing than when I changed it yesterday. Wound looks pink, granulating tissue. cleaned and redressed. Left heel wound cleaned and redressed, small flap pink area. Minimal drainage.
--- NOTE | 2021-11-12 18:07 | NUR ---
Ms Wiggins had an uneventful day. She ambulated in the hallways with a gait belt, walker and standby assist. She is A&O to self, place and time, but has flightly conversation often. Dressing changes done and noted in chart. Good oral intake, including ensure. Bed in low position, call light in reach and pt has been using the call light appropriately to call for stand by assist to the bathroom. She has been steady on her feet when up to the bathroom.
--- NOTE | 2021-11-13 04:22 | NUR ---
SEAM PRESS OPERATOR SUMMARY PATIENT HAD A FAIR SHIFT. ASSESSMENT DONE AND CHARTED. HER V/S ARE STABLE. WOUND AT SACRAL AND HEELS CLEANED AND DRESSED. SHE HAD HER PAIN MEDICATION AFTERWARDS. OTHERWISE NO COMPLAINTS. WILL CONTINUE TO MONITOR HER.
--- NOTE | 2021-11-13 07:40 | NUR ---
CARE ASSUMPTION PATIENT IS ALERT AND ORIENTATED X4. PERRLA. NEURO IS INTACT. LUNG SOUNDS CLEAR. HEART SOUND REGULAR, STRONG PULSES RADIAL AND [CONNIE BILATERALLY, CAP REFILL <3SECONDS. NO GI/ ISSUES NOTED. PRESSURE ULCER TO LEFT HEEL AND COCCYX, MEPILEX IN PLACE. SEE SHIFT ASSESSMENT FOR FULL DETAILS. PATIENT REPORTS NO PAIN THIS MORNING, NO CHEST PAIN/PRESSURE, OR SHORTNESS OF BREATH. PATIENT IS A STAND BY ASSIST AND CAN COMPLETE ADLS INDEPEDENTLY. CALL LIGHT WITHIN REACH. WILL CONTINUE TO MONITOR AND PROVIDE CARE.
--- NOTE | 2021-11-13 17:55 | NUR ---
SHIFT SUMMARY PATIENT NEURO IS INTACT AND THERE HAS BEEN NO CHANGES. VSS. PATIENT USES CALL LIGHT APPRORPRIATELY. THIS RN CHANGED PATIENT WOUND DRESSING, AND NOTED IT IN THE WOUND ASSESSMENT SECTION, SEE FOR FULL DETAILS. PATIENT IS CURRENTLY SITTING IN BED EATING DINNER. PATIENT WALKED AROUND THE UNIT TODAY WITH THE DIRECTOR OF SCIENTIFIC RESEARCH. NO ACUTE CHANGES THIS SHIFT. CALL LIGHT WITHIN REACH. WILL CONTINUE TO MONITOR AND PROVIDE CARE UNTIL HAND OFF WITH NEXT SHIFT.
--- NOTE | 2021-11-14 04:07 | NUR ---
SHIFT SUMMARY NO ACUTE CHANGES TO REPORT THIS SHIFT. ASSESSMENT REMAINS UNCHANGED, PT HAS SLEPT MOST OF THE NIGHT. INDEPENDENT IN THE ROOM. VITALS STABLE. DRESSING TO COCCYX CHANGED THIS SHIFT. MODERATE AMOUNT OF PURULENT DRAINAGE NOTED. PT HAS NO COMPLAINTS OF PAIN. BED IN LOWEST POSITION, CALL LIGHT WITHIN REACH.
--- NOTE | 2021-11-14 18:03 | NUR ---
PATIENT IS AWAKE,ALERT AND ORIENTED TIMES THREE .DENIES PAIN. PATIENT ATE 100% OF MEALS. DENIES PAIN. PATIENT AMBULATE IN ROOM WITHOUT DIFFICULTY. PATIENT WAS ENCONRAGE TO USE CALL DIEHL SYSTEM WHEN ASSISTANCE IS NEEDED.
--- NOTE | 2021-11-15 04:52 | NUR ---
SHIFT SUMMARY NO ACUTE CHANGES TO REPORT THIS SHIFT. PT HAS RESTED MOST OF THE NIGHT. DENIES NEEDS, REMAINS INDEPENDENT IN THE ROOM. ABLE TO MAKE NEEDS KNOWN. PLAN OF CARE UNCHANGED. BED IN LOWEST POSITION, CALL LIGHT WITHIN REACH.
--- NOTE | 2021-11-15 17:14 | NUR ---
PATIENT IS AWAKE,ALERT AND ORIENTED TIME THREE.DENIES PAIN. SCARAL DRESSING CHANGE PER PROTOCOL. PATIENT ATE 100% OF LUNCH AND BREAKFAST.
--- NOTE | 2021-11-16 04:18 | NUR ---
RAMP SERVICE AGENT SUMMARY PT STILL AWAITING PLACEMENT. ALERT AND ORIENTED. PLEASANT. INDEPENDENT IN THE ROOM WITH FWW. NO CONCERNS AT THIS TIME.
--- NOTE | 2021-11-16 07:38 | NUR ---
COLLIN sher handoff of patient care from COLLIN Marquis Patient was in bed asleep. She did not appear to be in any distress
--- NOTE | 2021-11-16 16:53 | NUR ---
Patient was alert and orient, she spent time in bed but did ambulate in the hallways with this RN. She was continent of bowel and bladder, and her appetite was fair. She had no complaints of pain, and took her medications as scheduled. Patient will take a shower in the next 15 min and will have her dressings on her buttocks and heels changed.
--- NOTE | 2021-11-17 06:07 | NUR ---
STRIPPING AND BOOKING MACHINE OPERATOR SUMMARY PT STILL AWAITING GUARDIANSHIP AND PLACEMENT. SHE IS ALERT AND ORIENTED X3, PLEASANT. PT SLEPT WELL THROUGHOUT THE SHIFT. SHE HAS BEEN INDEPENDENT IN THE ROOM WITH FWW.
--- NOTE | 2021-11-17 15:36 | NUR ---
Patient was alert and orient, her affect was pleasant and mood was congruent. She was able to express her needs by using her call light. Patient was compliant with her medications and had no complaints of pain. Patient dressing on coccyx was changed this shift. She spent time on phone and taking care of her mail. Her appetite was good for all meals. She had no requests at this time
--- NOTE | 2021-11-18 03:33 | NUR ---
SUMMARY: PT A/OX4, CALLS APPROPRIATELY TO SPECIFY NEEDS AND IS PLEASANT AND COOPERATIVE W/CARE. SHE'S UP AD KYMBERLY IN ROOM AND IS AWARE OF LIMITATIONS. COCCYX DX CHANGED THIS SHIFT- DECUB ULCER CLEANSED W/SKINTEGRITY, CALCIUM ALGINATE REPLACED AND NEW MEPILEX APPLIED. L.HEEL DX REMAINS C/D/I. PT DENIED PAIN AND ALL OTHER COMPLAINTS. VSS/AFEBRILE, NO ACUTE CHANGES. CARE MNGMT ASSISTING W/GUARDIANSHIP AND PLACEMENT. WCRAJ AND REPORT TO DAY RN.
--- NOTE | 2021-11-18 11:36 | NUR ---
I HAVE REVIEWED THE SHIFT ASSESSMENT DONE BY MOTORCYCLE MECHANIC APPRENTICE AND AGREE WITH THE DOCUMENTATION.
--- NOTE | 2021-11-18 17:37 | NUR ---
SHIFT SUMMARY PT A/O X3 BUT HAS MOMENTS OF CONFUSION WHERE SHE HAS FLIGHTS OF IDEAS. DRESSINGS CHANGED ON SACRUM AND L HEEL. FOAM DRESSINGS CDI. PT AWAITING PLACEMENT. VSS. WILL REPORT TO PAWEL POLANCO.
--- NOTE | 2021-11-19 05:01 | NUR ---
SHIFT SUMMARY Patient AAOX3, Confused at time. No complaint of pain or disconfort voices. Her wounds dressing change this shift. She is pleasant and cooperative with care. She is still waitting for placement and guardianship. No acutes events occurs, we will continue with monitoring patient.
--- NOTE | 2021-11-20 16:40 | NUR ---
SHIFT SUMMARY NO ACUTE CHANGES TO PRESENT THIS SHIFT. PT IS PLEASANT AND CO-OP WITH CARE. SOME CONFUSION AT TIMES R/T HX OF DEMENTIA. DRSG TO L HEEL REMAINED C/D/I. DRSG TO COCCYX CHANGED. WOUND CLEANED PRIOR TO NEW DRSG. MEDICATED FOR C/O TREJO THIS AM. REPORTED IT EFFECTIVE. DENIED FURTHER NEEDS TO PRESENT. PT CONTINUES TO WAIT GUARDIANSHIP AND PLACEMENT. CALL LT IN REACH.
--- NOTE | 2021-11-21 03:50 | NUR ---
SHIFT SUMMARY PATIENT HAD NO ACUTE CHANGES. AXOX 3 WITH HX OF DEMENTIA. CONFUSED AT TIMES PUSHING THE CALL LIGHT X 6 AND REPORTS SHE DOESN'T REMEMBER USING IT WHEN ASKED. VSS/AFEBRILE. DENIES PAIN, SOB, AND N/V. DRESSING TO HEEL AND COCCYX CLEANED AND CHANGED. NO IV ACCESS. CALL LIGHT IN REACH. BED IN LOWEST POSITION. WILL CONTINUE TO MONITOR UNTIL DAY SHIFT NURSE ASSUMES CARE.
--- NOTE | 2021-11-21 15:46 | NUR ---
No acute changes. Pt uses FWW for mobility, limited supervision. Pt is alert and oriented X3, pleasent, cooperatice, and able to make their needs known. Hx of dementia, confused at times. Pt is on room air. Taking pills whole, no complications. No PIV access, MD aware. Pt is eating meals around 100%, able to feed self. Pt is continent of bowel and bladder, no accidents today. Wound care done per orders, dressing at heel and coccyc. Pt currently denies pain, no s/s of pain noted. Daily education and encouragement given. Call-light within reach, bed in lowest position.
--- NOTE | 2021-11-21 16:35 | NUR ---
No actue changes. Pt alert and oriented X3, Hx of dementia, confused at times; pleasent, cooperative, and able to make their needs known. Pt uses FWW with limited supervision. Pt is room air. Taking pills whole, no complications. No PIV access, MD aware. Pt is eating meals around 100%, able to feed self. Pt is continent of bowel and bladder, no accidents today. Wound care done per order to left heel and coccyx, new dressings applied. Pt currently denies pain, no s/s of pain noted. Daily education and encouragement given. Call-light within reach, bed in lowest position. Waiting for placement to memory unit.
--- NOTE | 2021-11-22 14:35 | NUR ---
No acute changes. Pt alert and oriented X3, Hx of Dementia, confused at times; pleasent, cooperative, and able to make needs known. Pt uses FWW with limited supervision; Pt ambulates around the unit with staff about 1-2 times a day. Pt is room air. Taking pills whole, no complications. No PIV access, MD aware. Pt is eating meals usually 100%, able to feed self. Pt is continent of bowel and bladder, no accidents today. Wound care done per order to left heel and coccyx, new dressings applied. Pt currently denies pain, no s/s of pain noted. Daily education and encouragement given. Waiting for placement to memory unit. Call-light within reach, bed in lowest position.
--- NOTE | 2021-11-23 16:17 | NUR ---
DAY SHIFT SUMMARY 75 YR OLD FEMALE PT. WAITING FOR PLACEMENT OR GUARDIANSHIP. ULCER TO LEFT HEEL AND DECUBE ULCER TO SACRAL AREA, WOUND CLEANED AND DRESSING CHANGED PER ORDER. NO ACUTE CHANGES WITH PT THIS SHIFT. PT ABLE TO GO FOR ACCOMPANIED WALKS AROUND UNIT FLOOR. CALL LIGHT WITHIN REACH OF PT AND ABLE TO CALL APPROPRIATELY.
[2021-11-24 05:36] LABS: BASOPHILS ABSOLUTE AUTO 0.06 K/mm3 (0.00-0.23); BASOPHILS PERCENT AUTO 1 % (0-2); EOSINOPHILS ABSOLUTE AUTO 0.14 K/mm3 (0.00-0.68); EOSINOPHILS PERCENT AUTO 2 % (0-6); Hematocrit 34.4 % (33.0-51.0); Hemoglobin 10.5 g/dL (11.5-16.0); IMMATURE GRAN ABSOLUTE AUTO 0.01 K/mm3 (0.00-0.10); IMMATURE GRAN PERCENT AUTO 0 % (0-1); LYMPHOCYTES ABSOLUTE AUTO 2.74 K/mm3 (0.84-5.20); LYMPHOCYTES PERCENT AUTO 46 % (21-46); MONOCYTES ABSOLUTE AUTO 0.46 K/mm3 (0.16-1.47); MONOCYTES PERCENT AUTO 8 % (4-13); Mean Corpuscular HGB 29.2 pg (26.0-34.0); Mean Corpuscular HGB Conc 30.5 g/dL (31.5-36.5); Mean Corpuscular Volume 96 fL (80-100); Mean Platelet Volume 9.4 fL (9.1-12.4); NEUTROPHILS ABSOLUTE AUTO 2.55 K/mm3 (1.96-9.15); NEUTROPHILS PERCENT AUTO 43 % (41-73); Platelet Count 338 K/mm3 (150-400); RDW Coefficient Variation 15.8 % (11.7-14.2); RDW Standard Deviation 56.5 fL (35.1-46.3); Red Blood Cell Count 3.59 M/mm3 (3.80-5.20); White Blood Cell Count 5.96 K/mm3 (4.00-11.30)
[2021-11-24 05:54] LABS: Anion Gap 6 mmol/L (6-16); Blood Urea Nitrogen 18 mg/dL (8-24); Bun/Creatinine Ratio 25.1 (12.0-20.0); CO2, Blood 25 mmol/L (21-32); Calcium, Blood 9.4 mg/dL (8.5-10.1); Chloride, Blood 112 mmol/L (98-108); Creatinine, Blood 0.72 mg/dL (0.40-1.00); Glomerular Filtration Rate >60 (60-); Glucose, Blood 98 mg/dL (70-99); Magnesium, Blood 2.5 mg/dL (1.6-2.4); Potassium, Blood 3.9 mmol/L (3.5-5.5); Sodium, Blood 143 mmol/L (136-145)
--- NOTE | 2021-11-24 17:07 | NUR ---
PATIENT IS ALERT AND ORIENTED X4. PATIENT IS AWAITING PLACEMENT. PATIENT HAS A SACRAL AND HEEL WOUND. PATIENT DID NOT WANT WOUND PROTECTION REPLACED THIS SHIFT. PATIENT AMBULATED THROUGHOUT THE HALLWAYS THIS SHIFT. VITAL SIGNS REVIEWED. NO ACUTE EVENTS THIS SHIFT. BED LOCKED AND LOWEST POSITION. CALL LIGHT IN PLACE. WILL MONITOR UNTIL SHIFT CHANGE.
--- NOTE | 2021-11-25 03:28 | NUR ---
SHIFT SUMMARY PATIENT HAD NO ACUTE CHANGES OBSERVED. AXOX 3 WITH HX OF DEMENTIA AND CONFUSION AT TIMES. INDEPENDENT IN ROOM AND ON ROOM AIR. NO IV ACCESS. DENIES PAIN, SOB, AND N/V. VSS/AFEBRILE. AWAITING PLACEMENT. SLEPT MOST OF THE SHIFT. CALL LIGHT IN REACH. BED IN LOWEST POSITION. WILL CONTINUE TO MONITOR UNTIL DAY SHIFT NURSE ASSUMES CARE.
--- NOTE | 2021-11-25 16:59 | NUR ---
PATIENT IS AWAKE,ALERT AND ORIENTED TIMES THREE. DENIES PAIM. PATIENT AMBULATE IN HALLWAY. DRESSING CHANGE TO SACRAL AND RIGHT HEEL WOUND. PATIENT TOLERATE DRESSING CHANGE WELL.
--- NOTE | 2021-11-26 04:01 | NUR ---
SHIFT SUMMARY PATIENT HAD NO ACUTE CHANGES OBERVED. AXO X 3 WITH HX OF DEMENTIA. INDEPENDENT IN ROOM. NO IV ACCESS. DENIES CHEST PAIN, SOB, AND N/V. ON ROOM AIR. SLEPT MOST OF THE SHIFT. COOPERATIVE WITH CARE. CALL LIGHT IN REACH. BED IN LOWEST POSITION. WILL CONTINUE TO MONITOR UNTIL DAY SHIFT NURSE ASSUMES CARE.
--- NOTE | 2021-11-26 17:08 | NUR ---
PATIENT IS AWAKE,ALERT AND ORIENTED TIMES THREE WITH EPISODE OF CONFUSION. DENIES PAIN, PATIENT AMBULATE IN HALLWAY TIMES THREE. NO ACUTE DISTRESS NOTED.
--- NOTE | 2021-11-27 06:01 | NUR ---
SHIFT SUMMARY: PATIENT REMAINED ALERT AND ORIENTED THROUGHOUT SHIFT. STEADY AMBULATION TO AND FROM BATHROOM FRONT WHEEL WALKER ASSIST. WOUND CARE MANAGEMENT- CLEANSED AND CHANGED DRESSINGS FOR COXYX AND L. HEEL WOUND. PAIN REMAINED CONTROLLED THROUGHOUT SHIFT WITH 1X DOSE ACETAMINOPHEN.
--- NOTE | 2021-11-27 16:51 | NUR ---
NO ACUTE CHANGES DURING THIS SHIFT. PATIENT A/O X3-4, COOPERATIVE WITH CARE AND MEDICATIONS. WOUND CARE DONE ORDERED, PATIENT TOLERATED WELL. PATIENT DENIES PAIN THROUGHOUT THE SHIFT.
--- NOTE | 2021-11-28 05:56 | NUR ---
SHIFT SUMMARY: DURING SHIFT PATIENT REMAINED A/0 X3 DISORIENTED TO TIME- BASELINE DEMENTIA PATIENT STEADY WHEN AMBULATING SELF TO BATHROOM COCCYX WOUND CLEANSED AND MEPILEX CHANGED. PATIENT RESTED ON/OFF THROUGHOUT SHIFT
--- NOTE | 2021-11-28 16:49 | NUR ---
PATIENT IS AWAKE,ALERT AND ORIENTED TIME TWO, PATIENT HAS EPISODE OF FORGETGULNESS. DENIES PAIN. NO NEW RECIVED TODAY. PATIEN RESTING COMFORTABLE.NO ACUTE DISTRESS NOTED.
--- NOTE | 2021-11-29 04:41 | NUR ---
SHIFT SUMMARY AOX4 ABLE TO VOICE NEEDS PLEASANT JOELLE PAIN WOUND CARE DONE DRESSING CHANGED A SMALL AMOUNT OF DRAINAGE NOTED.NO A CUTE CHANGE IN THIS SHIFT
--- NOTE | 2021-11-29 16:32 | NUR ---
Wound care recommendations R heel/coccyx; cleanse wounds with NS, pat dry, apply calium alginate to wound beds, cover with bordered foam. Change every other day, soiled or dislodged. This RN educated Pt on repositioning. Referral for WC on discharge
--- NOTE | 2021-11-29 17:38 | NUR ---
PATIENT IS AWKE,ALERT AND ORIENTED TIMES THREE. DENIES PAIN. WOUND CARE NURSE ASSESS PATIENT WOUND AND MADE CHANGE TO THE CURRENT ORDER. DRESSING CHANGE WAS COMPLETED PER ORDER. PATIENT 100% OF MEAL. NO COMPLAINT OR DISCOMFORT NOTED. PATIENT WAITING ON PLACEMENT. NO ACUTE DISTRESS NOTED.
--- NOTE | 2021-11-30 04:40 | NUR ---
SHIFT SUMMARY PATIENT REMAIN ALERT AND ORIENTED X 4 C/O BACK PAIN 02/08 TYLENOL ADMIN PER PATIENT REQUEST WITH RELIEF WOUND DRESSING INTACT AND DRY .NO ACUTE CHANGE IN THIS SHIFT
[2021-11-30 05:40] LABS: BASOPHILS ABSOLUTE AUTO 0.04 K/mm3 (0.00-0.23); BASOPHILS PERCENT AUTO 1 % (0-2); EOSINOPHILS ABSOLUTE AUTO 0.16 K/mm3 (0.00-0.68); EOSINOPHILS PERCENT AUTO 3 % (0-6); Hematocrit 31.5 % (33.0-51.0); Hemoglobin 9.9 g/dL (11.5-16.0); IMMATURE GRAN ABSOLUTE AUTO 0.02 K/mm3 (0.00-0.10); IMMATURE GRAN PERCENT AUTO 0 % (0-1); LYMPHOCYTES ABSOLUTE AUTO 2.15 K/mm3 (0.84-5.20); LYMPHOCYTES PERCENT AUTO 38 % (21-46); MONOCYTES ABSOLUTE AUTO 0.61 K/mm3 (0.16-1.47); MONOCYTES PERCENT AUTO 11 % (4-13); Mean Corpuscular HGB 29.7 pg (26.0-34.0); Mean Corpuscular HGB Conc 31.4 g/dL (31.5-36.5); Mean Corpuscular Volume 95 fL (80-100); Mean Platelet Volume 9.4 fL (9.1-12.4); NEUTROPHILS ABSOLUTE AUTO 2.64 K/mm3 (1.96-9.15); NEUTROPHILS PERCENT AUTO 47 % (41-73); Platelet Count 281 K/mm3 (150-400); RDW Coefficient Variation 15.8 % (11.7-14.2); RDW Standard Deviation 54.5 fL (35.1-46.3); Red Blood Cell Count 3.33 M/mm3 (3.80-5.20); White Blood Cell Count 5.62 K/mm3 (4.00-11.30)
[2021-11-30 06:12] LABS: Alanine Aminotransfer (ALT/SGP 19 U/L (12-78); Albumin, Blood 2.7 g/dL (3.4-5.0); Albumin/Globulin Ratio 0.8 (0.8-1.8); Alk Phos 67 U/L (50-136); Anion Gap 6 mmol/L (6-16); Aspartate Aminotrans (AST/SGOT 11 U/L (12-37); Bilirubin, Total 0.5 mg/dL (0.1-1.0); Blood Urea Nitrogen 17 mg/dL (8-24); CO2, Blood 24 mmol/L (21-32); Calcium, Blood 9.3 mg/dL (8.5-10.1); Chloride, Blood 112 mmol/L (98-108); Creatinine, Blood 0.74 mg/dL (0.40-1.00); Globulin, Blood 3.3 g/dL (2.2-4.0); Glomerular Filtration Rate >60 (60-); Glucose, Blood 93 mg/dL (70-99); Magnesium, Blood 2.5 mg/dL (1.6-2.4); Potassium, Blood 4.1 mmol/L (3.5-5.5); Sodium, Blood 142 mmol/L (136-145)
--- NOTE | 2021-11-30 13:17 | NUR ---
CHARTING A TOPOLOGY PROFESSOR 2 STUDENT.
--- NOTE | 2021-11-30 17:47 | NUR ---
SHIFT SUMMARY PT AxOx4. PLEASANT AND COOPERATIVE WITH CARE. PT HAD BED BATH TODAY. INDEPENDENT IN THE ROOM. WOUND CARE PERFORMED ON SACRUM AND R HEEL. PT DENIES ANY PAIN THIS SHIFT. VITALS REVIEWED. PT CURRENLTY AWAITING PLACEMENT FOR [facility]. PT SITTING IN BED EATING DINNER. CALL LIGHT IN REACH.
--- NOTE | 2021-12-01 05:15 | NUR ---
SHIFT SUMMARY PATIENT AOX4 JOELLE PAIN IN THIS SHIFT PLEASANT CONT WOUND CARE DRESSING INTACT AND DRY NO S/S INFECTION NOTED .
--- NOTE | 2021-12-01 18:25 | NUR ---
SHIFT SUMMARY PT A&O X4, THOUGH WAS PLEASENTLY CONFUSED T/O SHIFT. PT APPEARS TO BE IN A VERY GOOD MOOD, HAPPY, SMILING, AND FRIENDLY. SIMPLE REDIRECTION/REORIENTATION REQUIRED. PT RESTED COMFORTABLY T/O MOST OF SHIFT, AND AMBULATED HALLS 2X DURING SHIFT. TOLERATING PO INTAKE. VSS. CALL LIGHT W/IN REACH.
--- NOTE | 2021-12-02 03:39 | NUR ---
SHIFT SUMMARY ALERT AND ORIENTED PLEASANT AND COOPARATIVE TO CARE WOUND CARE DONE DRESSING CHANGED MEDIUM DRAINAGE NOTED NO S/S OF INFECTION NOTED
--- NOTE | 2021-12-02 16:43 | NUR ---
SHIFT SUMMARY PT A&O X4 AND IN PLEASENT MOOD T/O SHIFT. OCC. PLEASENTLY CONFUSED. AMUBULATED HALLS, STEADY GAIT. DRESSING TO BLE & COCCYX C/D/I. RESTED IN BED COMFORTABLY T/O MOST OF SHIFT. VSS. CALL LIGHT W/IN REACH.
--- NOTE | 2021-12-03 04:11 | NUR ---
SHIFT SUMMARY WOUND CARE AND DRESSING CHANGED IN THIS SHIFT NEW PICTURES TAKEN WITH PATIENT CONSENT AND PLACED IN THE CHART.NO ACUTE CHANGE NOTED
--- NOTE | 2021-12-04 08:05 | NUR ---
SHIFT SUMMARY PT A/O X4, DRSG TO SACRAL AREA WITH FOUL ODOR AND WAS CHANGED WITH PURULENT DRAINAGE NOTED, PT TOLERATED WELL, NO ACUTE DISTRESS AND PT SEEMED TO HAVE RESTED WELL.
--- NOTE | 2021-12-04 18:29 | NUR ---
PATIENT RESTING IN BED, NO COMPLAINTS. DENIES ANY PAIN. STILL WAITING FOR PLACEMENT
--- NOTE | 2021-12-05 07:38 | NUR ---
SHIFT SUMMARY PT A/O X3-4,DX WITH DEMENTIA, SACRAL AND LT. HEEL DRSGS D/I , UP INDEPENDENTLY IN ROOM AND TURNS SELF FREQUENTLY IN BED, NO ACUTE DISTRESS NOTED THIS SHIFT.
--- NOTE | 2021-12-05 16:35 | NUR ---
SHIFT SUMMARY PT AxOx4. PLEASANT AND COOPERATIVE WITH CARE. PT HAD UNEVENTFUL DAY. WOUND CARE PERFORMED THIS SHIFT. WALKED IN HALLS WITH WALKER. PT DENIES PAIN/OTHER CONCERNS AT THIS TIME. VITALS REVIEWED. CURRENTLY AWAITING [facility] PLACEMENT FOR DISCHARGE. PT SITTING IN BED WATCHING TV. CALL LIGHT IN REACH.
--- NOTE | 2021-12-06 16:54 | NUR ---
SHIFT SUMMARY- PT IS A/O, PLESANT AND COOPERATIVE. SHE IS EATING AND DRINKING WELL. SHE IS AMBULATING TO THE RESTROOM. CHANGED TO DRESSING ON HER DECUB. SPOKE WITH DR. RUIZ ABOUT THIS PT AND REQUESTED THAT HE REEVALUATE HER PER DR. TREJO REQUEST. SHE DECLINED A SHOWER THIS SHIFT. HER BED IS IN THE LOW POSITION AND CALL LIGHT IS WITIN REACH.
--- NOTE | 2021-12-07 12:40 | NUR ---
Spiritual Care Visit. Pt. is sitting up on bed and welcomes my visit. Pt. is pleasant and is only mildly unsettled about an upcoming evaluation with Dr. Morin. Listen empatheticially. Pt. displays evidence of interest in the things of noelle. Explore her noelle and belief. Pt. asks good questions, and displayed evidence of a commitment to strengthen both her body and soul. Prayed with Pt. Pt. verbalized gratitude for the spiritual care visit, and asked if I would return.
--- NOTE | 2021-12-07 14:36 | NUR ---
Met pt. sitting up on her bed watching T.V. ,pt. is ricki giraldo offered prayers.
--- NOTE | 2021-12-07 17:43 | NUR ---
PATIENT UP AD LIMB IN ROOM. STILL WAITING ON THE PLAN FOR DISCHARGE. ALL CONCERNS AND QUESTIONS ADDRESSED. CALL LIGHT PLACED WITHIN REACH AND BED IN LOWEST POSITION.
--- NOTE | 2021-12-08 06:39 | NUR ---
PT with fall and rhabdo after being down for several days continues pleasant & cooperative. PT has some short term memory deficits problems itermittanly with word finding. DR Crandall had recommended guardianship & PT requests repeat reeval which PT says was adminstered by 2 staff. PT scored less than 50% per report. She has strong scientology beliefs & enjoys sharing them. Sacral wound healing but still require every other day dressing changes with algonate & foam dressing. heel ulcer also improving., Appetite good, bowels move regularly. Indep in room PT denies unmet needs but expresses desire to return home on dc with caregiver services. Support offered.
--- NOTE | 2021-12-09 05:31 | NUR ---
Patient is alert and oriented x4, forgetful but redirectable. Complains of headache. Patient able to ambulate independently. No signs of distress. Call light within reach.
--- NOTE | 2021-12-09 17:32 | NUR ---
PATIENT ALERT AND ORIENTED X4, FORGETFUL. C/O PAIN TO LOER BACK, TYLENOL PRN ADMINISTRATED AND EFFECTIVE. PATIENT IS AMBULATORY WITH WALKER. DRESSING TO SACRUM CHANGED, PATIENT TOLERATED WELL. NO ACUTE CHANGES TO REPORT ON THIS SHIFT.
--- NOTE | 2021-12-10 05:45 | NUR ---
Patient is alert and oriented x3, forgetful. Complains of back pain, PRN tylenol given. Patient is independent and ambulatory. No SOB. Patient is sleeping. Call light within reach.
--- NOTE | 2021-12-10 18:10 | NUR ---
PATIENT ALERT AND ORIENTED X 4, CONFUSED AT TIMES. DENIES PAIN THROUGHOUT THE SHIFT. PATIENT IS AMBULATORY WITH WALKER. DRESSING TO SACRUM AND L HEEL CHANGED, PATIENT TOLERATED WELL. NO ACUTE CHANGES TO REPORT DURING THIS SHIFT.
--- NOTE | 2021-12-11 05:59 | NUR ---
SHIFT SUMMARY Pt doing well, no c/o pain, mike po well. Pt up independently in room with walker, ambulated in hallway with SBA, tolerated well. VSS, jean-claudeg c/d/i to coccyx ulcer and L heel. Anticipate d/c when placement determined and guardianship completed.
--- NOTE | 2021-12-11 17:17 | NUR ---
PATIENT ALERT AND ORIENTED X 4, CONFUSED AT TIMES. DENIES PAIN THROUGHOUT THE SHIFT. AMBULATORY WITH WALKER. DRESSING TO SACRUM CHANGED, PATIENT TOLERATED WELL. L HEEL DRESSING DCI. NO ACUTE CHANGES TO REPORT DURING THIS SHIFT.
--- NOTE | 2021-12-12 06:31 | NUR ---
SHIFT SUMMARY Pt doing well, med per mar for c/o mild headache, otherwise no c/o pain. Pt a/o x3 but also forgetful at times. Breanna po well, pt up independently in room with walker, vss, anticipate d/c when guardianship status completed and placement determined.
--- NOTE | 2021-12-12 17:24 | NUR ---
SHIFT SUMMARY PATIENT IS ALERT AND ORIENTED X3-4. PATIENT HAS RESTED AND READ MOST OF SHIFT. PATIENT IS AWAITING PLACEMENT. PATIENT IS FORGETFUL AND HAS BEEN TALKATIVE THIS SHIFT. PATIENT IS IND IN ROOM. PATIENT HAS HAD NO ACUTE EVENTS THIS SHIFT. VITAL SIGNS ARE REVIEWED. CALL LIGHT IN PLACE. BED IN LOCKED AND LOWERED POSITION.
--- NOTE | 2021-12-13 15:14 | NUR ---
Met ptsitting up on her bed, she reports doing fine encouragewd pt. and prayed with her.
--- NOTE | 2021-12-13 18:44 | NUR ---
SHIFT SUMMARY NO SIGNIFICANT EVENTS T/O SHIFT. PATIENT WALKED HALLS THIS MORNING WITH WALKER AND SBA. TOLERATED WELL. AWAITING GUARDIANSHIP. WILL CONTINUE TO MONITOR.
--- NOTE | 2021-12-14 04:42 | NUR ---
SHIFT SUMMARY Patient remains alert and oriented. She is independent in the room, walk with assist in the fung. She is waiting for guardienship and placement. No events to report during this shift. We will continue to monitor patient progress and report to the oncoming nurse.
--- NOTE | 2021-12-14 14:35 | NUR ---
Pt. is in bed fine getting better, offered prayers for thept.
--- NOTE | 2021-12-14 17:10 | NUR ---
NO ACUTE CHANGES. PT AOX3 AND COOPERATIVE OF CARE. PT HAD BANDAGE OF COCCYX AREA CHANGED TODAY AND WOUND LOOKS TO BE HEALTHY AND HEALING. PT TOOK TWO REALY NICE WALKS WITH CAREGIVERS IN THE HEADLEY TODAY. NO DISTRESS NOTED WILL CONTINUE TO MONITOR.
--- NOTE | 2021-12-15 16:32 | NUR ---
SHIFT SUMMARY PT A&O X4, ALTHOUGH PLEASENTLY CONFUSED @ TIMES. PT RESTED COMFORTABLY IN BED T/O MOST OF SHIFT, ENJOYED READING. PT AMBULATED 2X T/O SHIFT W/ A STEADY GAIT USING FWW. AWAITING PLACEMENT/GAURDIANSHIP @ THIS TIME. INDEPENDENT IN ROOM. VSS. CALL LIGHT W/IN REACH.
--- NOTE | 2021-12-16 05:34 | NUR ---
SHIFT SUMMARY 75 YR F ADMITTED ON 08/29/21 FOR [facility]. PT HAS SINCE HAD HER MEDICAL ISSUES RESOLVED FOR THE MOST PART AND IS CURRENTLY WAITING FOR PLACEMENT. SHE HAS A VERY SWEET DEMEANOR AND CAN BE A BIT CONFUSED AT TIMES. SHE IS EAGER TO PARTICIPATE IN HER OWN CARE AND ENJOYS TAKING WALKS AND BEING ACTIVE SHE CAN BE WITH BEING HOSPITALIZED.
--- NOTE | 2021-12-16 17:30 | NUR ---
SHIFT SUMMARY PT A&O X4 AND IN PLEASENT MOOD T/O SHIFT. WOUNDS REDRESSED, MEASURED AND PHOTOGRAPHED. STEADY GAIT W/ AMBULATION. INDEPENDENT IN ROOM. RESTED COMFORTABLY IN BED T/O SHIFT. ENJOYED READING BIBLE. VSS. CALL LIGHT W/IN REACH. AWAITING PLACEMENT @ THIS TIME.
--- NOTE | 2021-12-17 06:09 | NUR ---
SHIFT SUMMARY NO CHANGES OVERNIGHT. PT IS PLEASANT AND COOPERATIVE AND IS BASICALLY HERE WAITING PLACEMENT. SHE REQUIRES VERY LITTLE AND IS FULLY INDEPENDANT IN THE ROOM. SHE SLEPT MOST OF THE SHIFT SO THIS NURSE HAD LITTLE INTERACTION WITH HER.
--- NOTE | 2021-12-17 15:00 | NUR ---
PATIENT HAD NO ACUTE CHANGES. PATIENT A AND O 4X PATIENT FORGETFUL AT TIMES. PATIENT WALKED TWICE AROUND UNIT. PATIENT ONLY ASKED FOR TYLENOL ONCE FOR BACK PAIN.
--- NOTE | 2021-12-18 06:34 | NUR ---
SHIFT SUMMARY: NO ACUTE CHANGES, VSS, UP INDEPENDANTLY WITH FWW TO THE BATHROOM AND AMB. IN THE HEADLEY WITH A SBA X1. STEADY GAIT OBSERVED.
--- NOTE | 2021-12-18 13:29 | NUR ---
PATIENT A AND O 4X. PAIN IN WOUNDS MANAGED BETTER TODAY THAN YESTERDAY. NO ACUTE CHANGES
--- NOTE | 2021-12-19 05:59 | NUR ---
SHIFT SUMMARY: NO ACUTE CHANGES, VSS, INDEPENDANT IN THE ROOM WITH NO COMPLAINTS.
--- NOTE | 2021-12-19 19:15 | NUR ---
NO ACUTE CHANGES TO PATIENT STATUS THIS SHIFT, PT AWAITING PLACEMENT. AMBULATED HALLS WITH STAFF. VITALS STABLE.
--- NOTE | 2021-12-19 21:18 | NUR ---
Patient is alert, forgetful about specifics. Pt is very delightful. Assessment is negative except for coccyx wound. She states she changed the drsg today. Coccyx area continues to have small open area with some serous drainage. Mepelex in place. Watching TV. Denies any further discomfort or needs at this time.
--- NOTE | 2021-12-20 05:00 | NUR ---
Rn summary: Patient is a delightful lady. Very happy and cooperative. Pt has rested well. She is up independantly in her room. Pt has had no pain issues. Mepelex to coccyx. Placement pending. Call light in reach, able to make needs known.
--- NOTE | 2021-12-20 14:03 | NUR ---
Pt. is sitting up in bed relaxed she reports to be doing fine and may go to Rehab. today or chey , encouraged pt and offered prayers
--- NOTE | 2021-12-20 18:00 | NUR ---
SHIFT SUMMARY; PATIENT HAD UNEVENTFUL DAY TODAY. SHE AMBULATES AROUND UNIT WITH MISSILE TECHNICIAN AND RN WALKING WITH HER. USES WALKER AND DOES NOT REQUIRE AND ASSIST. PATIENT HAS PLEASANT AFFECT AND COOPERATIVE WITH CARE. DENIES ANY PAIN OR DISCOMFORT. VITAL SIGNS ARE WNL. PLAN IS FOR [facility] TO POSSIBLY GO TO [facility] NEXT WEEK?
--- NOTE | 2021-12-21 07:23 | NUR ---
SHIFT SUMMARY PT A/OX4, COOPERATIVE, LUNGS CTA, ON RA, DRSGS D/I TO BUTTOCKS AND LEFT. HEEL. PT INDEPENT IN ROOM. DENIED ANY PAIN THIS SHIFT. NO ACUTE DISTRESS NOTED.
--- NOTE | 2021-12-21 14:10 | NUR ---
Met pt. in her room resting and waiting for the Dr's message prayed for the pt.
--- NOTE | 2021-12-21 16:52 | NUR ---
SHIFT SUMMARY PATIENT DENIES PAIN, NAUSEA, AND SHORTNESS OF BREATH. PATIENT IS IND IN ROOM. PATIENT AMBULATED MULTIPLE TIMES IN HALLWAY WITH SBA. PATIENT CHANGED DRESSING ON BOTTOM. THIS RN WAS IN THE ROOM TO PROVIDE HELP IN NEEDED. PATIENT IS EATING AND DRINKING WELL. PATIENT HAD A VISIT WITH THE DENITRATOR OPERATOR AND THIS LIFTED HER SPIRITS. PATIENT IS PLEASANT AND COOPERATIVE WITH CARE.
--- NOTE | 2021-12-22 05:42 | NUR ---
ALERT AND ORIENTED X'S 4, FORGETFUL. DENIED PAIN OR DISCOMFORT. RESPIRATIONS EVEN AND UNLABORED. MEPILEX BORDER C/D/I/ TO SACRUM, ENCOURAGED PATIENT TO TURN AND REPOSITION SELF THROUGH NIGHT TO OFFLOAD AREA, VOICED UNDERSTANDING. UP INDEPENDENTLY, SLEPT WELL. SAFETY MAINTAINED, CALL DIEHL IN REACH.
--- NOTE | 2021-12-22 18:21 | NUR ---
SHIFT SUMMARY- PT IS ALERT, PLESANT AND COOPERATIVE. SHE IS EATING AND DRINKING WELL. AMBULATED IN THE HALLS THIS SHIFT. CHANGED MEPLEX ON BOTTOM. HER BED IS IN THE LOW POSITION AND CALL LIGHT IS WITIN REACH.
--- NOTE | 2021-12-22 21:00 | NUR ---
PT IS RESTING IN BED, PLEASANT, AND COOPERATIVE WITH CARE. PT SOMEWHAT PARTICULAR ON HER SPECIFIC NEEDS - IE DOOR OPEN, SHADES CLOSED, LIGHT LEFT ON IN BATHROOM TO LET STAFF KNOW SHE HAS HAD A BM OR URINE, ETC. SKINTEGRITY APPLIED TO COCCYX WOUND, MAXORB, AND NEW MEPILEX APPLIED. PT DENIES ANY URINARY COMPLICATIONS. PT IS UP INDEPENDENTLY WALKING IN ROOM, WHILE STAFF IN ROOM. CALL LIGHT WITHIN REACH. BED IN LOW POSITION. PT DENIES ANY OTHER NEEDS AT THIS TIME. PT DENIES HEADACHE, CHEST PAIN, SOB, OR NAUSEA.
--- NOTE | 2021-12-23 04:55 | NUR ---
SHIFT SUMMARY - NO ACUTE CHANGES THIS SHIFT. PT HAS BEEN SLEEPING THROUGHOUT MOST OF THE NIGHT. PT EASILY AWAKENS TO VERBAL COMMUNICATION. FLUIDS AT BEDSIDE. CALL LIGHT WITHIN REACH. BED IN LOW POSITION. PT IS A PLACEMENT - CARE MANAGEMENT INVOLVED. MEPILEX, MAXORB, SKINTEGRITY APPLIED TO COCCYX - PT REPORTS WOUND IS HEALING, AND HAS DECREASED IN SIZE. WILL CONTINUE TO MONITOR UNTIL AM SHIFT CHANGE.
--- NOTE | 2021-12-23 18:32 | NUR ---
SHIFT SUMMARY NO ACUTE CHANGES THIS SHIFT. SHE WAS VISITED BY HER KLARISSAAN TODAY TO DISCUSS DISCHARGE TO A [facility]. RAMIRO ON BOTTOM CHANGED. WILL CONTINUE TO MONITOR.
--- NOTE | 2021-12-24 04:40 | NUR ---
ALERT AND ORIENTED X'S 4, FORGETFUL AT TIMES. DENIES PAIN OR DISCOMFORT. INDEPENDENT IN ROOM. DRESSING C/D/I TO COCCYX. ENCOURAGED PATIENT TO TURN AND REPOSITION TO OFF LOAD PRESSURE. PATIENT VERBALIZED UNDERSTANDING. RESTED PEACEFULLY THROUGH MIGHT. SAFETY MAINTAINED, CALL DIEHL IN REACH.
--- NOTE | 2021-12-24 16:51 | NUR ---
SHIFT SUMMARY NO ACUTE CHANGES PER SHIFT. PT IS STILL AWAITING PLACEMENT INTO [employer]. WILL CONTINUE TO MONITOR.
--- NOTE | 2021-12-25 05:34 | NUR ---
NO ACUTE CHANGES THROUGH NIGHT. DENIES PAIN OR DISCOMOFRT. CONTINUED TO AMBULATE INDEPENDENTLY IN ROOM, ABLE TO VOICE NEEDS WITHOUT DIFFICULTY. DRESSING TO COCCYX INTACT. SAFETY MAINTAINED, CALL DIEHL IN REACH.
--- NOTE | 2021-12-25 16:16 | NUR ---
SHIFT SUMMARY NO ACUTE CHANGES THIS SHIFT. PT GOT A SHOWER AND HAD HER MEPELEX DRESSING CHANGED. STILLHOPEFUL FOR DISCHARGE TO [facility] NEXT WEEK. WILL CONTINUE
--- NOTE | 2021-12-26 04:44 | NUR ---
No acute events through night. Denied pain or discomfort. Dressing to coccyx intact, draining a small amt of serosanguinous fluid. Patient demonstrated how she repositions herself in bed through night to off load coccyx. Remains independent in room. Safety maintained, call portillo in reach.
[2021-12-26 05:07] LABS: BASOPHILS ABSOLUTE AUTO 0.05 K/mm3 (0.00-0.23); BASOPHILS PERCENT AUTO 1 % (0-2); EOSINOPHILS ABSOLUTE AUTO 0.23 K/mm3 (0.00-0.68); EOSINOPHILS PERCENT AUTO 4 % (0-6); Hematocrit 38.4 % (33.0-51.0); Hemoglobin 12.5 g/dL (11.5-16.0); IMMATURE GRAN ABSOLUTE AUTO 0.01 K/mm3 (0.00-0.10); IMMATURE GRAN PERCENT AUTO 0 % (0-1); LYMPHOCYTES ABSOLUTE AUTO 3.01 K/mm3 (0.84-5.20); LYMPHOCYTES PERCENT AUTO 46 % (21-46); MONOCYTES ABSOLUTE AUTO 0.52 K/mm3 (0.16-1.47); MONOCYTES PERCENT AUTO 8 % (4-13); Mean Corpuscular HGB 29.5 pg (26.0-34.0); Mean Corpuscular HGB Conc 32.6 g/dL (31.5-36.5); Mean Corpuscular Volume 91 fL (80-100); Mean Platelet Volume 9.3 fL (9.1-12.4); NEUTROPHILS ABSOLUTE AUTO 2.75 K/mm3 (1.96-9.15); NEUTROPHILS PERCENT AUTO 42 % (41-73); Platelet Count 289 K/mm3 (150-400); RDW Coefficient Variation 14.8 % (11.7-14.2); RDW Standard Deviation 49.4 fL (35.1-46.3); Red Blood Cell Count 4.24 M/mm3 (3.80-5.20); White Blood Cell Count 6.57 K/mm3 (4.00-11.30)
[2021-12-26 05:33] LABS: Alanine Aminotransfer (ALT/SGP 23 U/L (12-78); Albumin, Blood 3.4 g/dL (3.4-5.0); Albumin/Globulin Ratio 0.8 (0.8-1.8); Alk Phos 78 U/L (50-136); Anion Gap 6 mmol/L (6-16); Aspartate Aminotrans (AST/SGOT 13 U/L (12-37); Bilirubin, Total 0.3 mg/dL (0.1-1.0); Blood Urea Nitrogen 23 mg/dL (8-24); Bun/Creatinine Ratio 29.4 (12.0-20.0); CO2, Blood 24 mmol/L (21-32); Calcium, Blood 9.7 mg/dL (8.5-10.1); Chloride, Blood 112 mmol/L (98-108); Creatinine, Blood 0.78 mg/dL (0.40-1.00); Glomerular Filtration Rate >60 (60-); Glucose, Blood 91 mg/dL (70-99); Potassium, Blood 4.1 mmol/L (3.5-5.5); Sodium, Blood 142 mmol/L (136-145); Total Protein, Blood 7.4 g/dL (6.4-8.2)
--- NOTE | 2021-12-26 12:30 | NUR ---
PATIENT A AND O 4X PATIENT HAS WOUND HEALING PROGRESSION OF BOTH LEFT HEEL AND COCCYX WOUND. DRESSING CHANGED. NO ACUTE CHANGES.
--- NOTE | 2021-12-27 06:09 | NUR ---
No acute changes through night. Denies pain or discomfort. Slept well. Up ad nurys to bathroom, steady gait. Dressing to coccyx and left foot lateral heel. Safety maintained, call portillo in reach.
--- NOTE | 2021-12-27 14:04 | NUR ---
PATIENT REMAINS UNCHANGED FROM YESTERDAY. COCCYX DRESSING CHANGED WITH NO FOWEL ORDER AND APPEARS TO BE SLOWLY HEALING. PATIENT AWAITING GAURDIANSHIP.
--- NOTE | 2021-12-27 14:44 | NUR ---
Met pt. in bed resting Pt. reports doing fine and Pt. is encouraged , offered praywers spiritual support.
--- NOTE | 2021-12-28 06:34 | NUR ---
No acute changes through night. Denies SOB or pain. Independent in room, gait steady. dressing intact to coccyx. Safety measures maintained, call portillo in reach.
--- NOTE | 2021-12-28 12:31 | NUR ---
PATIENT A AND O 4X. WOUND DRESSING CHANGE DONE ON COCCYX AND LEFT HEEL. SMALL DRAINAGE ON BOTH. PATIENT WENT ON A WALK AND HAD NO COMPLAINTS OF PAIN TODAY. PATIENT AWAITING GAURDIANSHIP.
--- NOTE | 2021-12-28 14:58 | NUR ---
Met pt. sitting up on her bed reading andtaking notes, had nice visit with pt. ,encouraged pt. and offered porayers.
--- NOTE | 2021-12-29 04:36 | NUR ---
SHIFT SUMMARY PATIENT ALERT OX3 WITH SOME CONFUSION AT TIME ABLE TO VOICE NEEDS C/O PAIN TO HER LOWER BACK TYLENOL ADM PER PATIENT REQUEST WITH RELIEF DRESSING TO HER COCCYX INTACT DRY NO SOB NOTED SAFETY IN PLACE
--- NOTE | 2021-12-29 13:49 | NUR ---
PATIENT IS ALERT AND OREINTED 4X. COCCYX DRESSING CHANGED SCANT BROWN/YELLOW DISCHARGE NOTED. PATIENT HAD NO ACUTE CHANGES THIS SHIFT. PATIENT HAD A TREJO THIS AM THAT WAS RELIVED WITH TYLENOL.
--- NOTE | 2021-12-30 04:26 | NUR ---
SHIFT SUMMARY PT C/O OF HEADACHE X 1 PRN TYLENOL ADM WITH RELIEF DRESSING TO HER COCCYX DRY AND INTACK NO ACUTE CHANGE NOTED
--- NOTE | 2021-12-30 17:37 | NUR ---
PATIENT ALERT AND ORIENTED X4 MOST OF SHIFT. PATIENT AMBULATED THE HALLS X2. COCCYX WOUND DRESSING CHANGED. AND BANDAGE APPLIED TO PRESSURE ULCER ON HEEL. WOUNDS APPEAR TO BE HEALING WELL. NO ACUTE CHANGES NOTED. PT IN BED WITH CALL LIGHT NEAR BY. WILL REPORT TO RN UPON ARRIVAL AND WILL CONTINUE TO MONITOR.
[2021-12-31 05:01] LABS: BASOPHILS ABSOLUTE AUTO 0.06 K/mm3 (0.00-0.23); BASOPHILS PERCENT AUTO 1 % (0-2); EOSINOPHILS ABSOLUTE AUTO 0.17 K/mm3 (0.00-0.68); EOSINOPHILS PERCENT AUTO 3 % (0-6); Hematocrit 35.5 % (33.0-51.0); Hemoglobin 11.2 g/dL (11.5-16.0); IMMATURE GRAN ABSOLUTE AUTO 0.01 K/mm3 (0.00-0.10); IMMATURE GRAN PERCENT AUTO 0 % (0-1); LYMPHOCYTES ABSOLUTE AUTO 2.83 K/mm3 (0.84-5.20); LYMPHOCYTES PERCENT AUTO 47 % (21-46); MONOCYTES ABSOLUTE AUTO 0.46 K/mm3 (0.16-1.47); MONOCYTES PERCENT AUTO 8 % (4-13); Mean Corpuscular HGB 28.9 pg (26.0-34.0); Mean Corpuscular HGB Conc 31.5 g/dL (31.5-36.5); Mean Corpuscular Volume 92 fL (80-100); Mean Platelet Volume 9.7 fL (9.1-12.4); NEUTROPHILS ABSOLUTE AUTO 2.56 K/mm3 (1.96-9.15); NEUTROPHILS PERCENT AUTO 42 % (41-73); Platelet Count 264 K/mm3 (150-400); RDW Standard Deviation 50.2 fL (35.1-46.3); Red Blood Cell Count 3.88 M/mm3 (3.80-5.20); White Blood Cell Count 6.09 K/mm3 (4.00-11.30)
[2021-12-31 05:22] LABS: Anion Gap 5 mmol/L (6-16); Blood Urea Nitrogen 19 mg/dL (8-24); Bun/Creatinine Ratio 22.1 (12.0-20.0); CO2, Blood 25 mmol/L (21-32); Calcium, Blood 9.4 mg/dL (8.5-10.1); Chloride, Blood 112 mmol/L (98-108); Creatinine, Blood 0.86 mg/dL (0.40-1.00); Glomerular Filtration Rate >60 (60-); Glucose, Blood 86 mg/dL (70-99); Potassium, Blood 4.1 mmol/L (3.5-5.5); Sodium, Blood 142 mmol/L (136-145)
--- NOTE | 2021-12-31 06:04 | NUR ---
PM SHIFT SUMMARY PATIENT HAD NO COMPLAINTS DURING SHIFT. SHE DID HER LEG EXERCISES AND AMBULATED A FEW TIMES IN HER ROOM. PER REPORT, HER SACRAL DRESSING GETS CHANGED EVERY OTHER DAY, DAILY CHANGES WERE MAKING IT WORSE. AM SHIFT CHANGED HER DRESSING. SHE HAS BILAT HEEL ULCERS WHICH ARE WRAPPED AND BANDAGED, THESE ARE C/D/I. SHE IS AWAITING GUARDIANSHIP AND POSSIBLE DC TO AN SKILLED NURSING IN THE NEXT FEW DAYS.
--- NOTE | 2021-12-31 17:08 | NUR ---
SHIFT SUMMARY THE PATIENT IS ALERT AND ORIENTED X2-3 PLEASANT AND COOPERATIVE WITH CARE. THE PATIENT IS INDEPENDENT IN THEIR ROOM. WOUND CARE DONE TODAY PER PATIENT'S REQUEST. THE PATIENT HAS HAD NO ACUTE CHANGES THIS SHIFT. CALL LIGHT WITHIN REACH. THIS NURSE WILL CONTINUE TO CARE FOR THE PATIENT UNTIL SHIFT REPORT IS GIVEN TO ONCOMING NURSE.
--- NOTE | 2021-12-31 20:16 | NUR ---
PATIENT ONLY TOOK 1 OF THE ORDERED 2 SENOLOT S TABS THIS EVENING. 1 PILL WILL BE WASTED IN THE PYXIS.
--- NOTE | 2022-01-01 05:49 | NUR ---
PM SHIFT SUMMARY PATIENT WAS HER PLEASANT, TALKATIVE SELF THIS EVENING. SHE DID NOT AMBULATE IN THE HALLS, BUT I DID SEE HER DOING HER LEG EXERCISES IN THE ROOM. PER REPORT, AM NURSE CHANGED SACRAL DRESSINGS, WHICH ARE TO BE DONE EVERY OTHER DAY. HER PROXY HAS APPLIED FOR GUARDIANSHIP. ONCE COMPLETE, PLAN IS TO DC TO AN [facility] (POSSIBLY TO [facility]) OR A MEMORY CARE UNIT. SHE HAD NO COMPLAINTS DURING THE SHIFT.
--- NOTE | 2022-01-01 09:00 | NUR ---
PT PLEASANT COOP A/O X3. NOT SURE WHO PRESIDENT IS. DENIES PAIN. VERY TALKATIVE. H/R REG, MURMER NOTED. NO TELE. LUNGS CLEAR, RESP EASY, UNLABORED. ON R/A. BT X4 LAST BM PER PT YEST. NO EDEMA NOTED. VOIDS INDEPENDANT TO BATHROOM. BED IN LOW POSITION, CALL LITE IN REACH, CALLS APPROP. OCC WALKS TO DOOR TO MAKE NEEDS KNOWN. PENDING GUARDIANSHIP
--- NOTE | 2022-01-01 18:56 | NUR ---
PT PLEASANT BUT FIXATED ON SORE ON BOTTOM. IS TO BE CHANGED TOMORROW. PT AGREES TO ACCEPT BUT FIXATED THAT IT MAY HAVE ODORS. PT AMBULATING ABOUT ROOM INDEPENDANTLY. PENDING GUARDIANSHIP. NO NEW CONCERNS NOTED TODAY. BED IN LOW POSITION, CALL LITE IN REACH, CALLS APROP
--- NOTE | 2022-01-02 05:14 | NUR ---
PM SHIFT SUMMARY PATIENT HAD NO COMPLAINTS DURING THE SHIFT. SHE IS FULLY INDEPENDENT IN HER ROOM. SHE ONLY ASKS FOR WATER AND ICE WHEN NEEDED. SHE SLEPT MAJORITY OF EVENING WHILE LISTENING TO MUSIC. AWAITING COMPLETION OF GUARDIANSHIP, THEN PLACEMENT AT [facility], OR A SIMILAR FACILITY.
--- NOTE | 2022-01-02 16:35 | NUR ---
WOUND CARE COMPLETE. WOUND CLEANSED WITH STERILE WATER AND GAUZE. CALCIUM ALGINATE APPLIED, MEPLEX TO COVER. WOUND IS DRY AND 4CM LONG. NO PURULENT DRAINAGE. PATIENT TOLERATED WELL. CALL LIGHT IN REACH, PATIENT CALLS APPROPRIATLY, AND BED IN LOW POSITION.
--- NOTE | 2022-01-02 16:36 | NUR ---
PT PLEASANT COOP TODAY. A/O X2 DETAILS DIFFICULT. DENIES PAIN. H/R REG, NO MURMER NOTED. NO TELE. LUNGS CLEAR, RESP EASY, UNLABORED. ON R.A. BT X4 LAST BM YEST PER PT. VOIDS INDEPENDANT TO BATHROOM. BED IN LOW POSITION, LORIE LITE IN REACH, CALLS APPROP. PENDING GUARDIANSHIP.
--- NOTE | 2022-01-02 17:27 | NUR ---
PT PLEASANT TODAY. HAS BEEN WALKING HALLS TODAY. DID PERFORM DRESSING CAHNGE ON SACRUM PER DR ORDERS. NO NEW CONCERNS NOTED. BED IN LOW POSITION, CALL LITE IN REACH, CALLS APPROP. PENDING GUARDIANSHIP
--- NOTE | 2022-01-03 06:21 | NUR ---
PM SHIFT SUMMARY PATIENT HAD NO COMPLAINTS DURING THE ENTIRE SHIFT. PER HANDOFF REPORT FROM MORNING SHIFT, HER DRESSINGS WERE CHANGED - NEXT CHANGE WOULD BE 01/04/22. HER PROXY HAS APPLIED FOR GUARDIANSHIP. ONCE THIS IS COMPLETE, THE PLAN IS FOR HER TO GO TO [facility] OR ANOTHER [facility].
--- NOTE | 2022-01-03 17:45 | NUR ---
SHIFT SUMMARY PT WAS PLEASENT AND COOPERATIVE WITH CARE. INDEPENDENT IN ROOM. WALKED AROUND UNIT ONCE. DRESSING ON COCCYX NOT CHANGED PER REPORT THAT IT HAD BEEN CHANGED THE PREVIOUS MORNING. WILL PASS ON TO ONCOMING RN THE NEED TO CHANGE IT TOMORROW MORNING. PT AGREEABLE TO THIS. NO NEW CONCERNS AT THIS TIME.
--- NOTE | 2022-01-03 17:52 | NUR ---
STUDENT NURSE ASSESSMENT AND DOCUMENTATION THIS RN WAS PRESENT DURING AND AGREE WITH THE STUDENTS AM ASSESSMENT AND DOCUMENTATION T/O THE DAY
--- NOTE | 2022-01-04 04:39 | NUR ---
SHIFT SUMMARY 75 YR F. FULL CODE. PT HAS BEEN HERE FOR 125 DAYS WAITING FOR PLACEMENT. THERE ARE NO ACUTE MEDICAL ISSUES AT THIS TIME. PT IS INDEPENDANT IN THE ROOM AND LIKES TO TAKE WALKS AROUNF THE HALLWAY. SHE IS PLEASANT AND FRIENDLY AND LIKES TO CHAT. SHE HAS A COCCYX WOUND THAT APPEARS TO HAVE HEALED TREMENDOUSLY OVER TIME, AND A LEFT HEEL WOUND THAT IS ALSO HEALING VERY WELL.
--- NOTE | 2022-01-04 18:44 | NUR ---
PT IS A/OX2, PLEASANT AND COOPERATIVE FORGETFULL AT TIMES. UP IND IN HER ROOM. THE PT APPEARS TO BE BREATHING EASILY ON RA AT THIS TIME. THE PTE WAS MEDICATED FOR TREJO THIS AFTERNOON. TYLENOL WAS GIVEN WITH GOOD RESULTS. PT SACERAL WOUNFD DRESSING WAS CHANGED TODAY, THE PT TOLERATED IT WELL. CALL LIGHT IN REACH. WILL CONTINUE TO MONITOR AND ASSESS FOR CHANGES
--- NOTE | 2022-01-05 05:59 | NUR ---
PT IS ALERT WITH NOTABLE CONFUSION. PT IS COOPERATIVE WITH CARE. PT CALLS APPROPRIATELY. PT IS INDEPENDENT IN THE ROOM. PT SEPT MUCH OF THE NIGHT WHEN NOT DISTURBED. PT DENIES PAIN, NAUSEA, VOMITING, AND SOB. NO ACUTE CHANGES OVERNIGHT. WILL REPORT TO DAY NURSE.
--- NOTE | 2022-01-05 11:50 | NUR ---
Spiritual Care Visit... Pt. is awake and in bed. Pt. welcomes my visit. Pt. has been seeing Father Simon but he will not be in this week. Pt. is pleasant. Establish rapport and facilitate a life review. Pt. displays evidence of mild confusion, and struggles with train of thought. Through theraputic listening and prayer Pt. displays evidence of reduced stress. Pt. verbalized grattitude for the spiritual care visit.
--- NOTE | 2022-01-05 18:33 | NUR ---
PT IS A/O X3, PLEASANT AND COOPERATIVE, UP IND IN HER ROOM. THE PT APPEARS TO BE BREATHING EASILY ON RA. THE PT DENIED ANY PAIN SO FAR TODAY. THE PT TOOK 2 LONG WALKS AROUND THE 3RD FLOOR WITH THE FWW. CALL LIGHT IN REACH, NO OTHER CHANGES NOTICED THIS SHIFT
--- NOTE | 2022-01-06 06:12 | NUR ---
SHIFT SUMMARY PATIENT ALERT AND ORIENTED. HAD NO COMPLAINTS OF PAIN OR SHORTNESS OF BREATH. NO ACUTE ISSUES NOTED OVERNIGHT. CALL LIGHT WITHIN REACH. REPORT GIVEN TO ONCOMING RN.
--- NOTE | 2022-01-06 16:43 | NUR ---
Spiritual Care visit... Pt. is awake and in bed. Pt. welcomes my visit. Pt. is pleasant and we quickly re-establish rapport. Pt. displays evidence of being encouraged. Considered issues of noelle and belief, and preseneted here with some printed scripture and notes. Pt. verbalized the impact others have had in her life. Faciliated a life review. Pt. verbalized an expectation that she would be discharged soon to a care facility. Prayed for pt. Pt. verbalized gratitude for the spiritual care visit.
--- NOTE | 2022-01-06 17:06 | NUR ---
WOUND DRESSING CHANGES COMPLETED AT THIS TIME PER WOUND CARE ORDERS.
--- NOTE | 2022-01-06 19:39 | NUR ---
SHIFT SUMMARY- PT ALERT AND ORIENTED X4. SHE HAS HAD NO ACUTE CHANGES T/O THE SHIFT. DRESSING CHANGES COMPLETED THIS SHIFT. PT IN BED CALL LIGHT IN REACH NO S&S OF DISTRESS. REPORT PASSED TO COLLIN PEREZ.
--- NOTE | 2022-01-07 06:14 | NUR ---
SHIFT SUMMARY PATIENT ALERT AND ORIENTED X3. HAD NO COMPLAINTS OF PAIN OR SHORTNESS OF BREATH. NO ACUTE ISSUES NOTED OVERNIGHT. CALL LIGHT WITHIN REACH. REPORT GIVEN TO ONCOMING RN.
--- NOTE | 2022-01-07 16:11 | NUR ---
SHIFT SUMMARY THE PATIENT IS ALERT AND ORIENTED X2-3, PLEASANT AND COOPERATIVE WITH CARE. THE PATIENT DID 3 LAPS AROUND THE MEDICAL FLOOR THIS SHIFT. NO ACUTE CHANGES. PATIENT IS ON RA. NO TELE. INDEPENDENT IN THE ROOM. BED IN LOWEST POSITION CALL LIGHT WITHIN REACH. THIS NURSE WILL CONTINUE TO CARE FOR THE PATIENT UNTIL SHIFT REPORT IS GIVEN TO ONCOMING NURSE.
--- NOTE | 2022-01-07 20:56 | NUR ---
1956 PT LYING IN BED, AWAKE, REPORTS HEADACHE OF 3-4/10, GAVE TYLENOL, WILL EVAL FOR EFFECT. WNDS ON COCCYX AND HEELS, DRESSINGS ARE C/D/I. NO OTHER APPARENT SIGNS OF DISTRESS. CALL LIGHT IS IN REACH.
--- NOTE | 2022-01-07 22:31 | NUR ---
PT LYING IN BED, EYES CLOSED, APPEARS TO BE RESTING. BREATHING IS EVEN, UNLABORED. NO APPARENT SIGNS OF DISTRESS. CALL LIGHT IS IN REACH. BED ALARM IS ON.
--- NOTE | 2022-01-08 00:28 | NUR ---
PT LYING IN BED, EYES CLOSED, APPEARS TO BE RESTING, BREATHING IS EVEN, UNLABORED. NO APPARENT SIGNS OF DISTRESS. CALL LIGHT IS IN REACH. BED ALARM IS ON.
--- NOTE | 2022-01-08 05:09 | NUR ---
0200 PT LYING IN BED, EYES CLOSED, APPEARS TO BE RESTING. BREATHING IS EVEN, UNLABORED. NO APPARENT SIGNS OF DISTRESS. CALL LIGHT IS IN REACH.
--- NOTE | 2022-01-08 05:09 | NUR ---
0400 PT LYING IN BED, EYES CLOSED, APPEARS TO BE RESTING. WAKES EASILY TO VERBAL STIMULI. NO APPARENT SIGNS OF DISTRESS. CALL LIGHT IS IN REACH. BED ALARM IS ON.
--- NOTE | 2022-01-08 05:10 | NUR ---
PT IS AAO X 4 MOSTLY, SHE DOES HAVE A RECENT DX OF DEMENTIA/ALZHEIMERS. ON RA. REPORTED A HEADACHE, GOT TYLENOL AT HS.
--- NOTE | 2022-01-08 05:54 | NUR ---
PT LYING IN BED, EYES CLOSED, APPEARS TO BE RESTING. BREATHING IS EVEN, UNLABORED. NO APPARENT SIGNS OF DISTRESS. CALL LIGHT IS IN REACH. NO OTHER CHANGES THIS SHIFT.
--- NOTE | 2022-01-08 16:34 | NUR ---
SHIFT SUMMARY PATIENT ALERT AND ORIENTED X3, PLEASANT AND COOPERATIVE WITH CARE. THE PATIENT TOOK A SHOWER TODAY. THE PATIENT DID A LAP AROUND THE MED FLOOR THIS SHIFT. DRESSING ON COCCYX CHANGED. VSS. NO ACUTE CHANGES. BED IN LOWEST POSITION. CALL LIGHT WITHIN REACH.
--- NOTE | 2022-01-08 20:39 | NUR ---
2000 PT LYING IN BED, DENIES ANY DISCOMFORT AT THIS TIME BUT DID REQUEST AND RECIEVE TYLENOL. NO APPARENT SIGNS OF DISTRESS. CALL LIGHT IS IN REACH. BED ALARM IS ON.
--- NOTE | 2022-01-08 23:25 | NUR ---
PT LYING IN BED, AWAKE, WATCHING TV AND USING HER CELL PHONE. DENIES NEED FOR ANYTHING AT THIS TIME. CALL LIGHT IS IN REACH.
--- NOTE | 2022-01-08 23:25 | NUR ---
2200 PT LYING IN BED, AWAKE, WATCHING TV. NO APPARENT SIGNS OF DISTRESS. CALL LIGHT IS IN REACH.
--- NOTE | 2022-01-09 03:15 | NUR ---
0200 PT LYING IN BED, EYES CLOSED, APPEARS TO BE RESTING. BREATHING IS EVEN, UNLABORED. NO APPARENT SIGNS OF DISTRESS. CALL LIGHT IS IN REACH.
--- NOTE | 2022-01-09 03:15 | NUR ---
PT LYING IN BED, EYES CLOSED, APPEARS TO BE RESTING. BREATHING IS EVEN, UNLABORED. NO APPARENT SIGNS OF DISTRESS. CALL LIGHT IS IN REACH.
--- NOTE | 2022-01-09 03:16 | NUR ---
PT IS AAO X 4, ON RA. DENIED ANY DISCOMFORT FOR THIS SHIFT BUT DID REQUEST AND RECIEVE TYLENOL AT HS.
--- NOTE | 2022-01-09 17:47 | NUR ---
SHIFT SUMMARY PATIENT IS A/O X4 WITH SOME CONFUSION AT TIMES. PLEASANT AND COOPERATIVE WITH CARE. CALLS APPROPRIATELY. THE PATIENT WENT FOR A WALK TODAY. MEDICATED X1 FOR A HEADACHE. HEADACHE RESOLVED. PATIENT HAS BEEN HIDING PERISHABLE FOOD IN THEIR ROOM. FOOD WAS THROWN OUT. NO ACUTE CHANGES.VSS. CALL LIGHT WITHIN REACH. BED IN LOWEST POSITION.
--- NOTE | 2022-01-09 20:37 | NUR ---
2018 PT LYING IN BED, AWAKE, DENIES ANY DICOMFORT AT THIS TIME, DENIES NEED FOR ANYTHING AT THIS TIME. NO APPARENT SIGNS OF DISTRESS. CALL LIGHT IS IN REACH.
--- NOTE | 2022-01-10 00:19 | NUR ---
01/10/22 2200 PT LYING IN BED, AWAKE, WATCHING TV. NO APPARENT SIGNS OF DISTRESS. CALL LIGHT IS IN REACH.
--- NOTE | 2022-01-10 00:20 | NUR ---
PT LYING IN BED, EYES CLOSED, APPEARS TO BE RESTING. BREATHING IS EVEN, UNLABORED. NO APPARENT SIGNS OF DISTRESS. CALL LIGHT IS IN REACH.
--- NOTE | 2022-01-10 02:05 | NUR ---
PT LYING IN BED, EYES CLOSED, APPEARS TO BE RESTING. BREATHING IS EVEN, UNLABORED. NO APPARENT SIGNS OF DISTRESS. CALL LIGHT IS IN REACH.
--- NOTE | 2022-01-10 04:06 | NUR ---
PT LYING IN BED, EYES CLOSED, APPEARS TO BE RESTING. BREATHING IS EVEN, UNLABORED. NO APPARENT SIGNS OF DISTRESS. CALL LIGHT IS IN REACH.
--- NOTE | 2022-01-10 04:06 | NUR ---
AAO X 4, MOSTLY, ON RA. DENIED ANY DISCOMFORT FOR THIS SHIFT.
--- NOTE | 2022-01-10 19:16 | NUR ---
SHIFT SUMMARY PATIENT A&O WITH NEW DX OF DEMENTIA. NO SIGNIFICANT EVENTS T/O SHIFT. DRESSING ON COCCYX CHANGED. REPORT GIVEN TO ONCOMING RN.
--- NOTE | 2022-01-11 05:27 | NUR ---
PM SHIFT SUMMARY PATIENT HAD NO COMPLAINTS DURING THE SHIFT. SHE IS INDEPENDENT IN HER ROOM. PER REPORT, SACRAL PRESSURE SORE IS IMPROVING, AND DRESSING WAS CHANGED BY AM NURSE. SHE STATES THAT SHE IS LEAVING SOON, WHICH SHE IS QUITE HAPPY ABOUT. WE ARE WAITING ON PLACEMENT TO AN [facility].
--- NOTE | 2022-01-11 17:39 | NUR ---
Spiritual Care visit... Pt. is awake and in bed. Pt. welcomes my visit. Pt. displays evidence of preparing to be discharged soon. Re-establish rapport. Pt. verbalizes commitment to go to [facility]. Listen Empathetically and give pastoral residential substance abuse counselor. Visit is interrupted by a legal advocate who interviews Pt. This carding machine operator and a nurse were asked to stay in the room. Pt. displays evidence of confusion at some points. Present clarifying questions to pt. After legal advocate departs, pastoral prayer is given, and pt. responds in prayer as well. Pt. verbalizes gratitude for the Spiritual Care visit.
--- NOTE | 2022-01-11 17:50 | NUR ---
SHIFT SUMMARY PATIENT AWAITING PLACEMENT AND GUARDIANSHIP. PATIENT AMBULATES HALLS WITH FWW AND SBA. COCCYX DRESSING C/D/I. VSS. WILL CONTINUE TO MONITOR.
--- NOTE | 2022-01-12 06:26 | NUR ---
SHIFT SUMMARY ASSUMED CARE OF PT AT 1900. PT IS A/OX4. HEART SOUNDS REGUALR, LUNG SOUNDS CLEAR. PT IS INDEPENDNT IN ROOM. PT IS WASHING OWN CLOTHS IN THE BATHROOM. PT C/O HEADACHE AT START OF SHIFT BUT SLEPT THE REST OF THE NIGHT. NO NEW COMPLAINTS.
--- NOTE | 2022-01-12 17:24 | NUR ---
PATIENT IS TALKATIVE TO THE POINT OF OF BEING HARD TO MEDICALLY ASSESS AT TIMES. IT APPEARS HARD FOR HER TO STAY ON TOPIC, WITHOUT WANDERING OFF THE SUBJECT AND TALKING EXCESSIVELY ABOUT OTHER THINGS THAT MAY OR MAY NOT BE RELATED TO THE ACTUAL TOPIC. PATIENT DENIES PAIN, DENIES SOB OR ANY OTHER COMPLAINTS AT THIS TIME. ULCER ON COCCYX IS HEALING AND HAS BEEN REDRESSED TODAY. BANDAID APPLIED TO HEAL.
--- NOTE | 2022-01-13 03:22 | NUR ---
SHIFT SUMMARY 75 YR F ADMITTED ON 08/29/21. FULL CODE. PT IS AWAITING GUARDIANSHIP AND PLACEMENT. SHE IS ALERT AND ORIENTED TO PERSON AND PLACE AND IS AWARE OF THE GUARDIANSHIP ISSUE ALTHOUGH SHE STATES THAT THERE ARE PARTS OF IT THAT SHE DOES NOT AGREE WITH. SHE IS PLEASANT AND COOPERATIVE AND IS VERY INDEPENDANT IN HER ROOM. SHE STATED THAT HER NEW "STATE GUARDIAN" WOULD BE PICKING HER UP TOMORROW AND TAKING HER TO GET THINGS FROM HER HOME. AFTER 136 DAYS HERE SHE WILL BE MOVING TO [facility] TOMORROW.
[2022-01-13] MEDS ORDERED: ACET325 PO (10:02)
[2022-01-13] MEDS ORDERED: ELIQUIS5 M2 PO (10:05)
[2022-01-13] MEDS ORDERED: Acerola C500 MG PO (10:06)
[2022-01-13] MEDS ORDERED: DOCUZEN 8.6-501 EACH PO (10:08)
[2022-01-13] MEDS ORDERED: FERSU300 PO (10:09)
[2022-01-13] MEDS ORDERED: Lisinopril2.5 MG PO (10:10)
[2022-01-13] MEDS ORDERED: METO25ER PO (10:12)
[2022-01-13] MEDS ORDERED: MIRALAX17 G7 PO (10:14)
[2022-01-13] MEDS ORDERED: SIME80CH PO (10:15)
[2022-01-13] MEDS ORDERED: Vitamin D1000 UNI1 PO (10:19)
--- NOTE | 2022-01-13 15:26 | NUR ---
PATIENT HAD NO CHANGE IN HEALTH OVERNIGHT AND THROUGH TODAY. HER DISCHARGE WAS PLANNED FOR THIS AM, HOWEVER PLANS CHANGED. POSSIBLY HOPEFUL OF DISCHARGE TOMORROW. MED REC WAS UPDATED FOR DISCHARGE. PATIENTS MOOD IS GOOD. DRESSING CHANGES DONE ON COCCYX AND HEEL. SHE WENT FOR A LONG WALK IN THE HALLWAY AND IS STEADY ON HER FEET. ROM APPEARS NORMAL, AND STRENGTH IS GOOD.
--- NOTE | 2022-01-13 20:29 | NUR ---
2013 PT LYING IN BED, DENIES ANY DISCOMFORT AT THIS TIME BUT DID REQUEST AND RECIEVE TYLENOL. NO OTHER APPARENT SIGNS OF DISTRESS. CALL LIGHT IS IN REACH.
--- NOTE | 2022-01-14 00:34 | NUR ---
01/13/22 2200 PT LYING IN BED, WATCHING TV. NO APPARENT SIGNS OF DISTRESS. CALL LIGHT IS IN REACH.
--- NOTE | 2022-01-14 00:35 | NUR ---
PT LYING IN BED, AWAKE, WATCHING TV. NO APPARENT SIGNS OF DISTRESS. CALL LIGHT IS IN REACH.
--- NOTE | 2022-01-14 03:32 | NUR ---
PT LYING IN BED, EYES CLOSED, APPEARS TO BE RESTING. BREATHING IS EVEN, UNLABORED. WAKES EASILY TO VERBAL STIMULI. NO APPARENT SIGNS OF DISTRESS. CALL LIGHT IS IN REACH.
--- NOTE | 2022-01-14 03:32 | NUR ---
0200 PT LYING IN BED, EYES CLOSED, APPEARS TO BE RESTING. BREATHING IS EVEN, UNLABORED. NO APPARENT SIGNS OF DISTRESS. CALL LIGHT IS IN REACH.
--- NOTE | 2022-01-14 03:33 | NUR ---
PT IS AAO X 2-3, ON RA. DENIED ANY DISCOMFORT FOR THIS SHIFT.
--- NOTE | 2022-01-14 17:17 | NUR ---
SHIFT SUMMARY PATIENT AWAITING PLACEMENT AND GUARDIANSHIP. NO SIGNIFICANT EVENTS T/O SHIFT. PATIENT PLEASANT AND COOPERATIVE WITH CARE. AMBULATED HALLS USING FWW. DRESSING ON COCCXY C/D/I. VSS. WILL CONTINUE TO MONITOR.
--- NOTE | 2022-01-15 05:47 | NUR ---
SHIFT SUMMARY PATIENT ALERT AND ORIENTED X3. HAD NO COMPLAINTS OF PAIN OR SHORTNESS OF BREATH. NO ACUTE ISSIES NOTED OVERNIGHT. CALL LIGHT WITHIN REACH. REPORT GIVEN TO ONCOMING RN.
--- NOTE | 2022-01-15 18:59 | NUR ---
SHIFT SUMMARY PATIENT AWAITING GUARDIANSHIP AND PLACEMENT. NO SIGNIFICANT CHANGES. VSS. WENT FOR WALK AND TOLERATED WELL. REPORT GIVEN TO ONCOMING RN.
--- NOTE | 2022-01-16 18:39 | NUR ---
SHIFT SUMMARY PATIENT AWAITING GUARDIANSHIP AND PLACEMENT. NO SIGNIFICANT EVENTS T/O SHIFT. AMBULATED HALLS X2, TOLERATED WELL. VSS. WILL CONTINUE TO MONITOR.
--- NOTE | 2022-01-17 06:15 | NUR ---
SHIFT SUMMARY PATIENT ALERT AND ORIENTED X3. HAD NO COMPLAINTS OF PAIN OR SHORTNESS OF BREATH OVERNIGHT. CALL LIGHT WITHIN REACH. REPORT GIVEN TO ONCOMING RN.
--- NOTE | 2022-01-17 18:33 | NUR ---
SHIFT SUMMARY PT CONTINUES TO AWAIT PLACEMENT. A/O X3 AND IND IN THE ROOM. DRESSING CHANGES TO COCCYX AND HEEL. BOTH WOUNDS ARE NEARLY COMPLETELY HEALED. NEW PHOTO OF COCCYX WOUND IN CHART. VSS. WILL REPORT TO PAWEL POLANCO.
--- NOTE | 2022-01-18 05:20 | NUR ---
SHIFT SUMMARY NO ACUTE CHANGES THIS SHIFT. AOX3. FORGETFUL. TANGETABLE, OFF TOPIC STATEMENTS @TIMES. VSS. DENIES PAIN, N/V OR DYSPNEA. DRESSING ON COCCYX & L HEEL REPLACED ON DAY SHIFT PER PT & NURSE & STILL C/D/I DURING ASSESSMENT. IND IN ROOM. CALL LIGHT IN REACH. WCTM.
--- NOTE | 2022-01-18 16:50 | NUR ---
SHIFT SUMMARY PT A&O X4 AND IN PLEASENT MOOD T/O SHIFT. PT MEET W/ POTENTIAL PLACEMENT THIS SHIFT. INDEPENDENT IN ROOM. TOLERATING PO INTAKE WELL. STEADY GAIT W/ AMBULATION IN [place]. CALL LIGHT W/IN REACH. VSS.
--- NOTE | 2022-01-18 18:35 | NUR ---
Spiritual Care visit. Pt. is finishing dinner and welcoimes my visit. Pt. is pleasant but unsettled about the changes in her discharge plan. Listen empathetically. Re-establish rapport and provide both a calming presence and pastoral weight loss counselor. Pt. displayed evidence of agreement and a positive motivation toward her possible discharge to [facility]. Prayed with Pt. Pt. verbalized gratitude for the spiritual care visit.
--- NOTE | 2022-01-18 21:17 | NUR ---
2008 PT LYING IN BED, DENIES ANY DISCOMFORT AT THIS TIME. NO APPARENT SIGNS OF DISTRESS. HEALED WOUND ON BOTTOM, MOSTLY HEALED WOUND ON L HEEL. CALL LIGHT IS IN REACH.
--- NOTE | 2022-01-18 21:19 | NUR ---
2200 PT LYING IN BED, AWAKE, WATCHING TV. NO APPARENT SIGNS OF DISTRESS. CALL LIGHT IS IN REACH.
--- NOTE | 2022-01-18 23:23 | NUR ---
PT LYING IN BED, REQUESTED AND RECIEVED TYLENOL, WILL EVAL FOR EFFECT. NO OTHER APPARENT SIGNS OF DISTRESS. CALL LIGHT IS IN REACH.
--- NOTE | 2022-01-19 04:19 | NUR ---
0200 PT LYING IN BED, EYES CLOSED, APPEARS TO BE RESTING. BREATHING IS EVEN, UNLABORED. NO APPARENT SIGNS OF DISTRESS. CALL LIGHT IS IN REACH.
--- NOTE | 2022-01-19 04:20 | NUR ---
0400 PT LYING IN BED, EYES CLOSED, WAKES EASILY TO VERBAL STIMULI. NO APPARENT SIGNS OF DISTRESS. CALL LIGHT IS IN REACH.
--- NOTE | 2022-01-19 04:22 | NUR ---
PT IS AAO X 3, SOME DEMENTIA. ON RA. REPORTED A HEADACHE AND NECK PAIN, GOT TYLENOL X 1. HEALED WOUND ON BOTTOM, MOSTLY HEALED WOUND ON THE L HEEL.
--- NOTE | 2022-01-19 16:55 | NUR ---
Spiritual Care. Briefly visited with Pt. while she was in the cafeteria under the supervision of a floor nurse. Pt. introduced this Special Procedure Tech "This is my Staff Cytotechnologist." Pt. seems excited about the possibility of discharge next week to a supervised care facility.
--- NOTE | 2022-01-19 18:23 | NUR ---
SHIFT SUMMARY NO ACUTE CHANGES SINCE ASSUMING CARE. PATIENT IS PLEASANT AND COOPERATIVE WITH CARE. SHE IS ALERT, ORIENTED TO SELF AND PLACE. SHE IS INDEPENDENT IN THE ROOM. SHE AMBULATED WITH STAFF AVAILABLE. SHE REPORTS THAT SHE IS EXCITED ABOUT PLACEMENT AND WOULD PREFER [facility]. SHE IS HOPEFUL SHE CAN DISCHARGE THERE NEXT WEEK. BED LOW AND LOCKED, CALL LIGHT WITHIN REACH. WILL CONT TO MONITOR UNTIL REPORT GIVEN TO RIBBING MACHINE OPERATOR RN
--- NOTE | 2022-01-19 21:43 | NUR ---
2036 PT SITTING UP IN BED, DENIES ANY DISCOFORT AT THIS TIME BUT DID REQUEST AND RECIEVE 1 TYLENOL. HEALED WOUND ON BOTTOM, MOSTLY HEALED WOUND ON L HEEL. NO APPARENT SIGNS OF DISTRESS. CALL LIGHT IS IN REACH.
--- NOTE | 2022-01-19 23:02 | NUR ---
2200 PT LYING IN BED, AWAKE, WATCHING TV. NO APPARENT SIGNS OF DISTRESS. CALL LIGHT IS IN REACH.
--- NOTE | 2022-01-20 00:19 | NUR ---
PT LYING IN BED, EYES CLOSED, APPEARS TO BE RESTING. BREATHING IS EVEN, UNLABORED. NO APPARENT SIGNS OF DISTRESS. CALL LIGHT IS IN REACH.
--- NOTE | 2022-01-20 02:57 | NUR ---
0200 PT LYING IN BED, EYES CLOSED, APPEARS TO BE RESTING. BREATHING IS EVEN, UNLABORED. NO APPARENT SIGNS OF DISTRESS. CALL LIGHT IS IN REACH.
--- NOTE | 2022-01-20 04:21 | NUR ---
PT LYING IN BED, EYES CLOSED, APPEARS TO BE RESTING. BREATHING IS EVEN, UNLABORED. NO APPARENT SIGNS OF DISTRESS. CALL LIGHT IS IN REACH.
--- NOTE | 2022-01-20 04:22 | NUR ---
AAO X 3-4, ON RA. DENIED ANY DISCOMFORT FOR THIS SHIFT BUT DID REQUEST 1 TYLENOL AT HS. HEALED WOUND ON BOTTOM, MOSTLY HEALED WOUND ON L HEEL.
--- NOTE | 2022-01-20 16:26 | NUR ---
SHIFT SUMMARY NO ACUTE CHANGES TO PRESENT THIS SHIFT. PT CONTINUES TO WAIT FOR PLACEMENT. PER CANAL EQUIPMENT MAINTENANCE SUPERVISOR, PT TO BE ABLE TO D/C TO [facility] TOMORROW. PT EXCITED TO GET TO D/C. UP INDEPENDENTLY IN RM AND TO [facility]. REQUESTED TO GO FOR A WALK. SBA USING FWW, PT ABLE TO AMBULATE ALL OF HALLS. PLEASANT AND GRATEFUL FOR CARE. DENIES FURTHER NEEDS. CALL LT IN REACH.
--- NOTE | 2022-01-21 05:40 | NUR ---
SHIFT SUMMARY: A/OX3 OCCASIONAL DISORIENTATION TO TIME- HX DEMENTIA. PT INDEPENDENT AMBULATION IN ROOM & INDEPENDENT WITH ADL'S. CALLS APPROPRIATELY, NO COMPLAINTS OF PAIN THROUGHOUT SHIFT. BED IN LOW POSITION, ROUNDING COMPLETED, CALL DIEHL IN REACH.
--- NOTE | 2022-01-21 13:19 | NUR ---
SHIFT SUMMARY NO ACUTE CHANGES TO PRESENT THIS SHIFT. PT WAS TO HAVE D/C'D TODAY TO [facility], BUT WILL NOW NOT D/C UNTIL MONDAY. PER REPORT, RM AT [facility] IS STILL BEING CLEANED. PT REMAINS PLEASANT AND CO-OP, MEDICALLY STABLE, PACKING UP HER BELONGINGS. VISITING WITH ANYONE THAT COMES ALONG. NO C/O. CALL LT IN REACH.
--- NOTE | 2022-01-21 14:05 | NUR ---
Spiritual Care Visit. Pt. is sitting up and awake in bed. Pt. is pleasant but mildly unsettled about the delay in her discharge to [facility]. Listen empthetically and am able to gently re-direct the pt. Normalize the Pt. experieance. Provided containment of expectations for the new facility. Pt. displayed evidence of being excited about the new location. Prayed for Pt. and Pt. prayed for this optical effects line up person. Pt. verbalized meaningful appreciation for the spiritual care visit.
--- NOTE | 2022-01-22 04:15 | NUR ---
SHIFT SUMMARY: PT A/OX 3-4 OCCASIONALLY DISORIENTED TO TIME. CONTINUED INDEPENDENT AMUBLATION IN ROOM, STEADY ON FEET. INDEPENDENT WITH ADL's. NO COMPLAINTS OF PAIN THROUGHOUT SHIFT. PT RESTING WHEN ROUNDING. BED IN LOW POSITION AND CALL IDEHL IN REACH.
--- NOTE | 2022-01-22 17:13 | NUR ---
SHIFT SUMMARY: NO ACUTE EVENTS. TOLERATING PO INTAKE. DECUBITUS ON COCCYX APPEARS TO BE HEALED, BUT SHE REQUESTED TO LEAVE DRESSING ON TO KEEP IT PROTECTED. AMBULATING AROUND UNIT INDEPENDENTLY WITH FWW, GAIT STEADY. DENIED PAIN.
--- NOTE | 2022-01-23 03:05 | NUR ---
SHIFT SUMMARY: A/O X3, ADLIB, INDEPENDENT ADL'S. CONTINENT, CALLS APPROPRIATELY. POST ADMINISTRATION OF 2100 MEDICATIONS PATIENT WAS SLEEPING WHEN ROUNDING THROUGHOUT SHIFT. NO CHANGES THROUGHOUT THE NIGHT. BED IN LOW POSITION, CALL DIEHL IN REACH.
--- NOTE | 2022-01-23 17:59 | NUR ---
SHIFT SUMMARY: NO ACUTE EVENTS. DENIED PAIN. AMBULATED AROUND UNIT X 2 WITH FWW, GAIT STEADY. GOOD APPETITE, TOLERATING PO. IS LOOKING FORWARD TO DISCHARGE TOMORROW.
--- NOTE | 2022-01-24 10:22 | NUR ---
PT DISCHARGED TO [facility]; PT TRANSPORTED VIA WC; BELONGINGS WITH PT. DICHARGE PAPER GIVEN, AND PT RECEIVE EDUCATION PACKET WELL AND GAVE TO [facility]. PT NO IV ACCESS. RECEIVED MORNING MEDS TODAY AND GOT READY FOR DC. NO OTHE ACUTE CHANGES
== END 2022-01-24 10:30 | DRG 871 ==
LOC: ER 12:49 → ERHOLD 14:49 → PCU 14:49 → MEDS 14:49 → PCU 18:39 → MEDS 09-04 12:49 → ENPENDDIS 01-21 10:53 → MEDS 01-24 10:30
PROVIDERS: Emergency Medicine; Family Medicine; Hospitalist; Internal Medicine; Internal Medicine Nephrology; ADMIT Internal Medicine
DX: A41.51 Sepsis due to Escherichia coli [E. coli] (principal); L89.154 Pressure ulcer of sacral region, stage 4; G92.8 Other toxic encephalopathy; I21.4 Non-ST elevation (NSTEMI) myocardial infarction; U07.1 COVID-19; I50.23 Acute on chronic systolic (congestive) heart failure; N17.9 Acute kidney failure, unspecified; E87.2 Acidosis; E87.0 Hyperosmolality and hypernatremia; M62.82 Rhabdomyolysis; I13.0 Hypertensive heart and chronic kidney disease with heart failure and stage 1 through stage 4 chronic kidney disease, or unspecified chronic kidney disease; N39.0 Urinary tract infection, site not specified; E44.0 Moderate protein-calorie malnutrition; R65.20 Severe sepsis without septic shock; E83.39 Other disorders of phosphorus metabolism; D63.1 Anemia in chronic kidney disease; G30.9 Alzheimer's disease, unspecified; D69.6 Thrombocytopenia, unspecified; F02.80 Dementia in other diseases classified elsewhere, unspecified severity, without behavioral disturbance, psychotic disturbance, mood disturbance, and anxiety; I51.3 Intracardiac thrombosis, not elsewhere classified; R31.9 Hematuria, unspecified; Z51.5 Encounter for palliative care; N18.9 Chronic kidney disease, unspecified; I25.5 Ischemic cardiomyopathy; E87.6 Hypokalemia; L89.629 Pressure ulcer of left heel, unspecified stage; L89.619 Pressure ulcer of right heel, unspecified stage; E86.0 Dehydration; D75.1 Secondary polycythemia; R33.9 Retention of urine, unspecified
CPT/HCPCS: 0241U; 36415; 51702; 70450; 70551; 71045; 76770; 80048; 80053; 80069; 81001; 82550; 82553; 82947; 83036; 83605; 83690; 83735; 83880; 84132; 84295; 84443; 84484; 85014; 85018; 85025; 85027; 85520; 85610; 87040; 87077; 87086; 87186; 92526; 92610; 93005; 93010; 93970; 96365; 97110; 97110-CQ; 97116; 97129; 97161; 97166; 97168; 97530; 97530-CQ; 97535; 99285-25; A9270; C1751; C8929; J0696; J1644; J3010; J3411; J3480; J7030; J7060; J7070; J7131; Q9957

== ENCOUNTER → 2022-07-20 | Outpatient (CLI) | payer MEDICARE ==
[~2022-07-20] MED LIST: ACET325 PO; Acerola C500 MG PO; CEPH500 PO; DOCUZEN 8.6-501 EACH PO; ELIQUIS5 M2 PO; FERSU300 PO; Lisinopril2.5 MG PO; METO25ER PO; MIRALAX17 G7 PO; SIME80CH PO; Vitamin D1000 UNI1 PO
[2022-07-21 14:03] LABS: Source, Urine Clean Catch
[2022-07-21 15:49] LABS: Appearance, Urine Hazy (Clear); Bilirubin, Urine Neg (Neg); Blood, Urine 1+ (Neg); Glucose Qualitative, Urine Neg (Neg); Ketones, Urine Neg (Neg); Leukocyte Esterase, Urine 3+ (Neg); Nitrite, Urine Neg (Neg); Protein, Urine Neg (Neg); Urobilinogen, Urine NORM (Normal); pH, Urine 6.5 (5.0-8.0)
[2022-07-21 16:15] LABS: Color, Urine Pale Yellow (P-Yellow)
[2022-07-21 16:17] LABS: Bacteria Many /hpf; Red Blood Cells, Urine 0-2 /hpf (0-2); Squamous Epithelial Cells Few /hpf (Few); White Blood Cells, Urine 25-50 /hpf (0-5)
== END ==
LOC: LAB 16:40 → LAB SHORT 16:40
PROVIDERS: Nurse Practitioner Family
DX: N39.0 Urinary tract infection, site not specified (principal)
CPT/HCPCS: 81001; 87077; 87086; 87186

== ENCOUNTER → 2022-09-30 | Outpatient (CLI) | payer MEDICARE, OTHER ==
[2022-09-30 14:02] LABS: Source, Urine Clean Catch
[2022-09-30 14:21] LABS: Appearance, Urine Clear (Clear); Bilirubin, Urine Neg (Neg); Blood, Urine Neg (Neg); Color, Urine Yellow (P-Yellow); Glucose Qualitative, Urine Neg (Neg); Ketones, Urine Neg (Neg); Leukocyte Esterase, Urine Neg (Neg); Nitrite, Urine Neg (Neg); Protein, Urine Neg (Neg); Specific Gravity, Urine 1.005 (1.003-1.022); Urobilinogen, Urine NORM (Normal)
== END ==
LOC: LAB SHORT 14:00
PROVIDERS: Nurse Practitioner Family
DX: N39.0 Urinary tract infection, site not specified (principal)
CPT/HCPCS: 81003

== ENCOUNTER → 2022-12-28 | Outpatient (CLI) | payer MEDICARE, OTHER ==
[2022-12-28 11:45] LABS: Source, Urine Clean Catch
[2022-12-28 13:22] LABS: Appearance, Urine Clear (Clear); Bilirubin, Urine Neg (Neg); Blood, Urine Neg (Neg); Color, Urine Yellow (P-Yellow); Glucose Qualitative, Urine Neg (Neg); Ketones, Urine Neg (Neg); Leukocyte Esterase, Urine 1+ (Neg); Nitrite, Urine Neg (Neg); Protein, Urine 1+ (Neg); Urobilinogen, Urine NORM (Normal); pH, Urine 6.5 (5.0-8.0)
[2022-12-28 14:11] LABS: Red Blood Cells, Urine Not Seen /hpf (0-2); Squamous Epithelial Cells Rare /hpf (Few)
[2022-12-28 14:12] LABS: Bacteria Mod /hpf
== END | disposition home or self-care (01) ==
LOC: LAB 10:20 → LAB SHORT 10:20
PROVIDERS: Family Medicine
DX: N39.0 Urinary tract infection, site not specified (principal)
CPT/HCPCS: 81001

== ENCOUNTER 2023-05-20 03:32 | Emergency (ER) | payer MEDICARE, OTHER ==
[~2023-05-20] VITALS: Ht 165.1 cm; Wt 77.6 kg
[2023-05-20] MEDS ORDERED: LORA10ER PO (03:53)
[2023-05-20] MEDS ORDERED: LOPE2C PO (03:54)
[2023-05-20 03:59] LABS: BASOPHILS ABSOLUTE AUTO 0.08 K/mm3 (0.00-0.23); BASOPHILS PERCENT AUTO 1 % (0-2); EOSINOPHILS ABSOLUTE AUTO 0.23 K/mm3 (0.00-0.68); EOSINOPHILS PERCENT AUTO 3 % (0-6); Hematocrit 37.3 % (33.0-51.0); Hemoglobin 12.3 g/dL (11.5-16.0); IMMATURE GRAN ABSOLUTE AUTO 0.02 K/mm3 (0.00-0.10); IMMATURE GRAN PERCENT AUTO 0 % (0-1); LYMPHOCYTES ABSOLUTE AUTO 3.15 K/mm3 (0.84-5.20); LYMPHOCYTES PERCENT AUTO 43 % (21-46); MONOCYTES ABSOLUTE AUTO 0.58 K/mm3 (0.16-1.47); MONOCYTES PERCENT AUTO 8 % (4-13); Mean Corpuscular HGB 29.5 pg (26.0-34.0); Mean Corpuscular Volume 89 fL (80-100); Mean Platelet Volume 9.5 fL (9.1-12.4); NEUTROPHILS ABSOLUTE AUTO 3.36 K/mm3 (1.96-9.15); NEUTROPHILS PERCENT AUTO 45 % (41-73); Platelet Count 277 K/mm3 (150-400); RDW Coefficient Variation 14.7 % (11.7-14.2); RDW Standard Deviation 47.8 fL (35.1-46.3); Red Blood Cell Count 4.17 M/mm3 (3.80-5.20); White Blood Cell Count 7.42 K/mm3 (4.00-11.30)
[2023-05-20 04:33] LABS: Source, Urine Straight Cath
[2023-05-20 04:37] LABS: Albumin, Blood 3.3 g/dL (3.4-5.0); Albumin/Globulin Ratio 0.8 (0.8-1.8); Bilirubin, Total 0.3 mg/dL (0.1-1.0); Bun/Creatinine Ratio 23.1 (12.0-20.0); Creatinine, Blood 0.86 mg/dL (0.40-1.00); Globulin, Blood 3.9 g/dL (2.2-4.0); Potassium, Blood 4.1 mmol/L (3.5-5.5); Total Protein, Blood 7.2 g/dL (6.4-8.2)
[2023-05-20 04:43] LABS: Appearance, Urine Clear (Clear); Bilirubin, Urine Neg (Neg); Blood, Urine Neg (Neg); Color, Urine Yellow (P-Yellow); Glucose Qualitative, Urine Neg (Neg); Ketones, Urine Neg (Neg); Leukocyte Esterase, Urine 1+ (Neg); Nitrite, Urine Neg (Neg); Protein, Urine Neg (Neg); Specific Gravity, Urine 1.015 (1.003-1.022); Urobilinogen, Urine NORM (Normal)
[2023-05-20 04:56] LABS: Bacteria Few /hpf; Red Blood Cells, Urine 0-2 /hpf (0-2); Squamous Epithelial Cells Few /hpf (Few)
[2023-05-20 05:00] VITALS: BP 109/63
== END 2023-05-20 06:30 | disposition home or self-care (01) ==
LOC: ER 03:32
PROVIDERS: Emergency Medicine
DX: K62.5 Hemorrhage of anus and rectum (principal); I10 Essential (primary) hypertension; I25.2 Old myocardial infarction
CPT/HCPCS: 51701; 80053; 81001; 85025; 87086; 93005; 93010; 99284

== ENCOUNTER → 2024-06-21 | Outpatient (CLI) | payer MEDICARE, OTHER ==
[~2024-06-21] MED LIST changes: +LOPE2C PO; +LORA10ER PO
[2024-06-21 13:06] LABS: Source, Urine Voided
[2024-06-21 14:15] LABS: Appearance, Urine Hazy (Clear); Bilirubin, Urine Neg (Neg); Blood, Urine 5+ (Neg); Color, Urine Yellow (P-Yellow); Glucose Qualitative, Urine Neg (Neg); Ketones, Urine Neg (Neg); Leukocyte Esterase, Urine 3+ (Neg); Nitrite, Urine Neg (Neg); Protein, Urine 3+ (Neg); Urobilinogen, Urine NORM (Normal)
[2024-06-21 14:24] LABS: Bacteria Many /hpf; Red Blood Cells, Urine TNTC /hpf (0-2); Squamous Epithelial Cells Few /hpf (Few); White Blood Cells, Urine TNTC /hpf (0-5)
[2024-06-21 14:25] LABS: Mucus Light (0-Heavy); Transitional Epithelial Cells Few /hpf (0-Rare)
== END ==
LOC: LAB 13:02 → LAB SHORT 13:02
PROVIDERS: Physician Assistant
DX: N39.0 Urinary tract infection, site not specified (principal)
CPT/HCPCS: 81001; 87077; 87086; 87186

== ENCOUNTER 2025-05-18 18:39 | Emergency (ER) | payer MEDICARE, OTHER ==
[~2025-05-18] VITALS: Ht 170.2 cm; Wt 95.2 kg
[2025-05-18 18:56] VITALS: BP 123/70
[2025-05-18] MEDS ORDERED: ALEVAZOL TP (20:04)
== END 2025-05-18 22:40 | disposition home or self-care (01) ==
LOC: ER 18:39
DX: B37.2 Candidiasis of skin and nail (principal); I10 Essential (primary) hypertension; F03.90 Unspecified dementia, unspecified severity, without behavioral disturbance, psychotic disturbance, mood disturbance, and anxiety; I25.2 Old myocardial infarction; Z79.899 Other long term (current) drug therapy
CPT/HCPCS: 99283; A9270